=== PATIENT | female | born 1975 | race Caucasian/White ===

== ENCOUNTER → 2018-10-23 06:34 | Outpatient (CLI) | payer OTHER, SELFPAY ==
--- NOTE | 2018-10-23 | DI.CT.S_ITS ---
PROCEDURE: CT SINUS SCREEN WO CON INDICATIONS: CHONIC SINUSITIS TECHNIQUE: Noncontrast 3.0 mm axial images acquired from the frontal sinuses to the mid-sella, with coronal and sagittal reformats. For radiation dose reduction, the following was used: automated exposure control, adjustment of mA and/or kV according to patient size. COMPARISON: None. FINDINGS: Image quality: Excellent. Maxillary Sinuses: No bony remodeling or destruction. Sinuses are clear. Ethmoid Air Cells: No bony remodeling or destruction. Sinuses are clear. Sphenoid Sinuses: No bony remodeling or destruction. Sinuses are clear. Frontal Sinuses: No bony remodeling or destruction. Sinuses are clear. Ostiomeatal Complexes: Ostiomeatal complexes are patent, yet are constitutionally narrowed with infraorbital air cells. Miscellaneous: Visualized intra-orbital contents are normal. There is a mild right sided jeremy bullosa. There is mild leftward nasal septal deviation. IMPRESSION: No significant active paranasal sinus disease is seen. Constitutionally narrowed ostiomeatal complexes. Mild leftward nasal septal deviation. Small right jeremy bullosa. Dictated by: Kris Hook M.D. on 10/23/2018 at 7:13 Approved by: Kris Hook M.D. on 10/23/2018 at 7:18
[2018-10-23 08:03] LABS: Hematocrit 36.3 % (36-46); Hemoglobin 11.8 g/dL (12.0-16.0); Mean Corpuscular HGB Conc 32.6 % (30-36); Mean Corpuscular Hemoglobin 26.1 PG (26-34); Mean Corpuscular Volume 79.9 fL (80-100); Platelet Count 297 X10^3/uL (150-400); Red Blood Cell Count 4.54 X10^6/uL (4.0-5.2); Red Cell Distribution Width 14.8 % (11.6-14.8); White Blood Cell Count 10.8 X10^3/uL (4.5-11.0)
[2018-10-23 08:20] LABS: BUN Creatinine Ratio 13.3 (6-22); Blood Urea Nitrogen 12 mg/dL (7-17); Carbon Dioxide 25 mmol/L (22-32); Chloride 104 mmol/L (98-107); Estimated Glomerular Filt Rate > 60.0 mL/min (>60); Glucose 193 mg/dL (70-100); HEMOLYSIS < 15 (0-50); Potassium 4.6 mmol/L (3.4-5.1); Sodium 139 mmol/L (137-145)
== END ==
PROVIDERS: Orthopaedic Surgery; Family Provider Family Medicine; PCP Family Medicine; Visit Provider Otolaryngology
DX: Z01.818 Encounter for other preprocedural examination (principal); J32.9 Chronic sinusitis, unspecified; J34.2 Deviated nasal septum; J34.3 Hypertrophy of nasal turbinates
CPT/HCPCS: 36415; 70486; 80048; 85027; 93005; 93010

== ENCOUNTER 2018-11-27 07:18 | Day surgery (SDC) | payer OTHER, SELFPAY ==
[2018-10-26 12:46] VITALS: BMI 45.1
[2018-11-27] VITALS (10 sets, daily range): BP systolic 120–168; BP diastolic 63–92; PULSE 74–97; RESP 13–20; TEMP 36.2–36.6; O2SAT 94–98; BMI 45.1
[2018-11-27] MEDS: LACTATED RINGERS 1,000 ML 42 ML IV (09:00)
--- NOTE | 2018-11-27 09:09 | PM.PREOP ---
Pre-operative Note Interval Note History & Physical reviewed/Exam performed by Physician: Yes Changes to H&P: Yes H&P completed within 30 days and has changed as indicated here:: H&P over 30 days old, updated today.
--- NOTE | 2018-11-27 09:10 | PM.HP.1 ---
History of Present Illness Date Patient Seen: 11/27/18 Time Patient Seen: 09:01 Chief complaint: left leg left foot [id number] Narrative: Left ankle preoperative history and physical update. She has recovered from her recent pneumonia. For history and physical regarding surgery, please see note dated 10/20/2018. Patient History Medical History Anxiety (Acute) Bilateral hip pain (Acute) Eczema (Acute) Fatigue (Acute) GERD (gastroesophageal reflux disease) (Acute) Gastroenteritis (Acute) HTN (hypertension) (Acute) Hyperlipidemia (Acute) Insomnia (Acute) Migraines (Acute) Non-functioning kidney (Acute) OCD (obsessive compulsive disorder) (Acute) SHIVNAI on CPAP (Acute) Osteopenia (Acute) Peripheral neuropathy (Acute) Pneumonia (Acute ~10/2018) Recurrent UTI (Acute) Recurrent sinusitis (Acute) Type 2 diabetes mellitus (Acute) Surgical History Hx laparoscopic cholecystectomy (Acute) Hx of fasciotomy (Acute 01/30/18) Hx of reduction mammoplasty (Acute) Family History Father Hypertension Mother Osteoporosis Social History household members: spouse Smoking Status: Never smoker alcohol intake: current Family & Social History Family History Father Hypertension Mother Osteoporosis Social History: household members spouse Tobacco & Substance use: Smoking Status Never smoker alcohol intake current Meds Home Medications Medication Instructions Recorded Confirmed Type sumatriptan succinate [Imitrex] 50 mg PO PRN #6 03/20/12 11/27/18 Rx amitriptyline 100 mg PO HS #90 05/12/12 11/27/18 Rx Lyrica 50 mg PO BID #0 01/27/18 11/27/18 History atorvastatin [Lipitor] 10 mg PO HS #0 01/27/18 11/27/18 History bupropion HCl [Wellbutrin SR] 100 mg PO QDAY #0 01/27/18 11/27/18 History fluticasone 1 spray INTRANASAL BID #0 01/27/18 11/27/18 History levonorgestrel-ethinyl estrad 1 tab PO QDAY #0 01/27/18 11/27/18 History [Lessina] pantoprazole 40 mg PO QDAY #0 01/27/18 11/27/18 History amlodipine 5 mg PO DAILY 11/27/18 11/27/18 History paroxetine HCl 60 mg PO DAILY 11/27/18 11/27/18 History propranolol 80 mg PO DAILY 11/27/18 11/27/18 History Allergies Allergy/AdvReac Type Severity Reaction Status Date / Time Sulfa (Sulfonamide Allergy Intermediate RASH Verified 11/27/18 08:15 Antibiotics) [SULFA (SULFONAMIDE ANTIBIOTICS)] adhesive [ADHESIVE] Allergy Unknown LOCALIZED Verified 11/27/18 08:15 RASH Penicillins [PENICILLINS] Allergy Unknown Verified 11/27/18 08:15 metformin [METFORMIN] AdvReac Unknown DIARRHEA Verified 11/27/18 08:15 Review of Systems Review of Systems All systems reviewed & are unremarkable except as noted in HPI and below Exam Vital Signs (past 8 hours): - 11/27/18 07:53 Temperature 97.1 F L Pulse Rate 75 Respiratory Rate 15 Blood Pressure 121/73 Pulse Oximetry 97 Oxygen Delivery Method Room Air Const General: cooperative Orientation: alert, awake and oriented x3 Resp Effort & Inspection: normal respiratory effort Auscultation: clear to auscultation bilaterally Cardio Rate: regular rate Rhythm: regular rhythm Pulses: posterior tibial pulses present and dorsalis pedis present Neuro Sensory Exam: no sensory deficits noted (to left foot/ankle) Extrem Left lower extremity: normal capillary refill and ankle Details: normal ROM (Dorsiflexion foot on ankle about 12? beyond 90) and achilles tendon exam abnormal (Pain on palpation posterior heel at the insertion point of Achilles) Assessment & Plan Assessment & Plan narrative: I reviewed the risks and complications as well as expected outcomes of the procedure please see further details on surgical history and physical note dated October 20, 2018. We will investigate this intraoperatively to determine the need for a gastrocnemius recession however under exam today it does not appear that she has significant tension here. She will start her Lovenox short course tomorrow and this is reviewed with her and her including safety instructions. She already has medication postoperatively as well at home that she used on her last surgery that she has not yet finished. Nonweightbearing for a minimum of 3 weeks and then gradual transition with strengthening and physical therapy. Consent is signed, no contraindications to the procedure at this time. No guarantees are given or implied.
[2018-11-27] MEDS: CLINDAMYCIN 900 MG/50 ML PIGGYBACK 50 MG IV (09:13)
[2018-11-27] MEDS: BUPIVACAINE 0.5% (PF) VIAL 30 ML INJ (10:05)
--- NOTE | 2018-11-27 12:03 | P.OP_ITS ---
Operative Date/Time/Diagnoses Date of procedure: 11/27/18 Time of procedure: 12:00 Pre-op diagnosis: Left Achilles tendinosis, heel spur, gastrocnemius equinus Post-op diagnosis: same Procedure & Clinicians Procedure: Left retrocalcaneal exostectomy with Achilles tendon debridement and four-point anchoring Left gastrocnemius recession Same procedure as scheduled: Yes Indications: Ongoing painful posterior heel and Achilles area. Conservative measures failed to alleviate her pain and she wished to have surgical intervention at this time. Surgeon: Andreia Donaldson Click Yes if Unassisted: Yes Anesthesia Type: General Operative Notes Closure Type: primary Specimen(s): none sent Prosthetic devices, grafts, tissues, transplants, or devices: Arthrex Speed Bridge Estimated Blood Loss (mL): 30 Blood products transfused: none Tourniquet time (min): 71 Procedure in detail: Patient was brought to the operating room. On the [facility] a general anesthesia was rendered by the anesthesiologist. She was carefully positioned prone on operative table, well padded and appropriately aligned. The foot and ankle were prepped and draped in the usual aseptic manner. The tourniquet was inflated to the thigh. After a check of anesthesia incision was made on the posterior aspect of the left calcaneus at the insertion point of the Achilles to the heel. The incision was deepened through subcutaneous tissues being careful to identify and retract all vital neural and vascular structures. All bleeders were cauterized and ligated as necessary. The capsule surrounding the Achilles tendon was gently opened and reflected and the enlarged insertion point of the Achilles tendon was noted. The insertion was divided centrally and Achilles tendon was reflected laterally and medially. This exposed areas of the tendon that were significa ntly thickened as well as areas that included calcifications within the tendon. These bony prominences within tendon and calcifications were gently removed and some of the thickened scarred areas of the tendon distally were also reduced. A osteotome was used to chamfer away the posterior spurring of the calcaneus. It was noted that there was a natural angle to the posterior heel such that the me dial side was more forward and the lateral side was more posterior. This constant uneven this affect on the back of the heel and so the osteotome was chamfer down to justify this a little bit. This was then gently smoothed with a rasp. The area was irrigated with copious amounts of normal sterile saline. Following the technique of the Arthrex SpeedBridge. Drill holes were placed proximally on the posterior aspect of the calcaneus medially and laterally. This was then tapped and each anchor was inserted. Once appropriately seated the FiberWire attached to the anchor was brought up through the Achilles tendon at the appropriate location. There was a little less Achilles tendon on the lateral aspect so because of that I used a 2nd portion of the attached suture on that side to attach proximal to the anchor. Next, distally on the calcaneus another set of 2 holes were drilled in the same manner and tapped. Following the speed bridge protocol, under appropriate tension threading each of the 2 sides of the more proximal anchors suture, this was then placed in each of the holes. Each of these 2 anchors were then seated appropriately and was under good tension. Excess fiber tape was trimmed. A free needle was used to take some of the included FiberWire suture on each side and reinforce the attachment. Care was taken to not make this a proud knot. 2-0 Vicryl was used to reinforce and repair the remainder of the Achilles tendon and range of motion was available and strong. The area was irrigated once more with normal sterile saline. At this point when I reviewed the tension on the calf it was decided that she still had enough tension that it warranted the gastroc recession. So. Proximally on the calf, a 2nd incision was made centrally. This was deepened through subcutaneous tissues being careful to identify and retract all vital neural and vascular structures. All bleeders were cauterized and ligated as necessary. The paratenon and deep fascia were incised noting the aponeurosis and the soleus musculature underneath. Protecting the the soleal muscle belly, the aponeurosis was cut distally medially and laterally and then proximally in the center with a separate sections by about 3 cm. Dorsiflexion allowed the lengthening and 2 0 Vicryl was used to repair. The area was irrigated with copious amounts of normal sterile saline and the tourniquet was deflated. A prompt hyperemic response was seen to the foot and ankle and calf. Distally, tendon capsule was then repaired and subcutaneous closure was performed with Vicryl. Proximally, the deep fascia was repaired with Vicryl and subcutaneously as well. Skin was closed with nylon and she was placed in a sterile lightly compressive dressing. She was then also placed in her postoperative boot. She was transferred to the PACU with vital signs stable and vascular status intact. Complications: none Condition: stable Disposition: PACU Plan for aftercare: Following a period of postoperative monitoring, the patient be discharged home on written and oral postoperative instructions including keeping the dressing dry and intact, avoiding ambulation on the foot, elevating the foot when seated home. DVT prevention techniques have been reviewed. She will start her short course of Lovenox tomorrow. For the 1st postoperative visit the dressing will be a changed and there can be a check of suture removal along the proximal and distal incisions. More likely, the distal incision will not be able to be removed until the 3rd week postoperatively. At that point we will remove them if they have not been removed already, and because of the addition of the gastroc as well as the reinforcement of the Achilles I will have her begin transition to weight-bearing starting close to the 3-1/2 to 4th postoperative week.
[2018-11-27] MEDS: ONDANSETRON 4 MG/2 ML INJ IV (12:14)
[2018-11-27] MEDS: fentaNYL 100 MCG/2 ML INJ 50 MCG IV (12:15)
--- NOTE | 2018-11-27 12:25 | SUR.PHASEI ---
addendum to admit assessment to PACU, pt. arrived with oral airway and simple mask. placed O2 at 8L via simple mask/oral airway.
--- NOTE | 2018-11-27 12:26 | SUR.OPER ---
Prone on padded OR bed, head in foam head support, gel chest rolls, gel pad under knees, pillow under lower legs, arms secured on padded arm boards at <90 degrees abduction. Safety belt at thigh. non operative leg secured in place with tape, operative leg draped free.
--- NOTE | 2018-11-27 13:01 | SUR.PHASEII ---
report given to Katiana RN to continue care.
--- NOTE | 2018-11-27 16:44 | SUR.PHASEII ---
Late entry: assumed care from Rachele, D/c instructions along with lovenox injection discussed with pt, all voiced an understanding. pt ready to go when done, assisted to dress when ready and left in stable condition, dressing to l lower leg c/d/i with boot. Denied pain in foot, c/o slight headache, but refused meds at this time. Nausea also resolved.
== END 2018-11-27 16:49 | disposition home or self-care (01) ==
PROVIDERS: PCP Family Medicine; Visit Provider Podiatrist
PROC: (CPT 27685; principal; 2018-11-27 09:00)
DX: M76.62 Achilles tendinitis, left leg (principal); M77.32 Calcaneal spur, left foot; E66.9 Obesity, unspecified; I10 Essential (primary) hypertension; F41.9 Anxiety disorder, unspecified; G47.33 Obstructive sleep apnea (adult) (pediatric); E11.9 Type 2 diabetes mellitus without complications
CPT/HCPCS: 27654; 27687; J1100; J1170; J2405; J2704; J3010

== ENCOUNTER → 2019-04-03 09:26 | Outpatient (CLI) | payer OTHER, SELFPAY ==
[2019-04-03 10:59] LABS: BUN Creatinine Ratio 16.3 (6-22); Blood Urea Nitrogen 13 mg/dL (7-17); Estimated Glomerular Filt Rate > 60.0 mL/min (>60)
== END ==
PROVIDERS: PCP Family Medicine; Visit Provider Podiatrist
DX: Z01.818 Encounter for other preprocedural examination (principal)
CPT/HCPCS: 36415; 82565; 84520

== ENCOUNTER → 2019-04-20 06:42 | Outpatient (CLI) | payer OTHER, SELFPAY ==
--- NOTE | 2019-04-20 | DI.MRI.S_ITS ---
PROCEDURE: MR ANKLE LT WO/W CON INDICATIONS: CALCANEAL SPUR OF LEFT FOOT - abcess TECHNIQUE: Noncontrast sagittal T1 spin echo and T2 fast spin echo with fat saturation, axial proton density fast spin echo and T2 fast spin echo with fat saturation, axial T1 spin echo with fat saturation, coronal T1 spin echo and T2 fast spin echo with fat saturation through the ankle/hindfoot. Post-contrast axial, coronal, and sagittal T1 spin echo with fat saturation through the ankle/hindfoot. COMPARISON: [facility] [place], CR, XR CALCANEUS LEFT, 03/30/2019, 7:58. FINDINGS: Image quality: Excellent. Bones and joints: There is suggestion of prior rotator cuff tendon repair with 2 suture anchors seen in posterior calcaneus. Marrow edema involving the posterior calcaneus near Achilles tendon insertion site is seen with mild contrast enhancement. No discrete fracture line is noted. No other area of abnormal marrow signal or suspicious osseous enhancement. No hindfoot coalitions. No osteochondral injuries of the talar dome. No pathologic joint effusions. Medial structures: The posterior tibialis, flexor digitorum longus, and flexor hallucis longus tendons are intact. The posterior tibial neurovascular bundle appears normal within the tarsal tunnel, without extrinsic mass effect. The deep layer (anterior and posterior tibiotalar ligaments) and superficial layer (tibionavicular, tibiospring, and tibiocalcaneal ligaments) of the deltoid ligament appear normal. The spring ligament components (superomedial calcaneonavicular, medioplantar oblique calcaneonavicular, and inferoplantar longitudinal ligaments) are intact. Lateral structures: The anterior talofibular, calcaneofibular, and posterior talofibular ligaments appear intact. More superiorly, the anterior and posterior tibiofibular ligaments appear intact, as is the intermalleolar ligament. The tibiofibular syndesmosis is normal in width at 2 mm or less. The peroneus longus and brevis tendons demonstrate normal location and morphology. Adjacent bony peroneal tubercle and retrotrochlear prominence are normal in size. The sinus tarsi demonstrates normal fatty signal, without edema, fibrosis, or cyst formation. Visualized sinus tarsi components (cervical ligament, interosseous talocalcaneal ligament, roots of the inferior extensor retinaculum) appear normal. The calcaneonavicular and calcaneocuboid components of the bifurcate ligament appear intact. The dorsal calcaneocuboid ligament appears intact. Anterior structures: The tibialis anterior, extensor hallucis longus, and extensor digitorum longus tendons appear intact. The dorsal talonavicular ligament appears intact. Posterior and plantar structures: Thickened distal Achilles tendinitis posterior calcaneal insertion is seen with surrounding soft tissue edema and fluid. No drainable abscess collection. No full-thickness Achilles tendon rupture. Medial and lateral bands of the plantar fascia are of normal thickness. No abductor digiti quinti muscle atrophy to suggest Langley neuropathy. IMPRESSION: 1. Prior Achilles tendon repair with post surgical changes. 2. Finding is suggestive of tendinosis and moderate grade partial-thickness tear involving distal Achilles tendinitis posterior calcaneal insertion. Infected distal Achilles tendon with surrounding cellulitis cannot be excluded. No drainable fluid collection is seen. 3. Edema involving the posterior calcaneus near Achilles tendon insertion site, concerning for osteomyelitis is clinically suspected an infection in left heel. This could also represent postsurgical changes versus bony contusion. No cortical erosion is noted. No fracture or dislocation. 4. Rest of ankle tendons and ligaments are intact. Dictated by: Polo Dudley M.D. on 04/20/2019 at 15:03 Approved by: Polo Dudley M.D. on 04/20/2019 at 15:09
== END ==
PROVIDERS: PCP Family Medicine; Visit Provider Podiatrist
DX: M77.32 Calcaneal spur, left foot (principal); R60.0 Localized edema
CPT/HCPCS: 73723; A9579

== ENCOUNTER → 2019-06-09 15:20 | Oncology outpatient (ONC) | payer OTHER, SELFPAY ==
[2019-05-19 08:41] VITALS: BP 129/78; PULSE 78; RESP 20; TEMP 36.4; O2SAT 97
--- NOTE | 2019-05-19 09:33 | ONC.CONS ---
History of Present Illness - Data of Consult Consult date: 05/19/19 Primary Care Provider: Briana Louie MD - Consult Narrative Narrative: Diagnosis: Leukocytosis History of present illness: Stephanie Castro is a 43 year old female who is referred for further evaluation regarding an elevated white cell count. Patient reports that she was feeling generally well and is part of a routine physical had a blood test done in February. She is noted to have a mildly elevated white count at 12.9. On recheck in March, her white count was 13.8. Differential showed primarily neutrophilia with an absolute neutrophil count of 10.2. She did not have any anemia or thrombocytopenia. Review of old CBCs shows that in October 2017, her white count was 12.6. In December of 2016 it was normal at 6.2 and in August 2016 it was 13.2. The patient reports that she has been feeling generally well. She is not aware of any infection at the time when the blood counts were drawn. She has had a couple of bladder infections however. She denies any fevers chills or night sweats. She has not noticed any adenopathy. No abdominal complaints. She denies any history of splenomegaly. She otherwise feels well and is without any specific complaint. Her past medical history is notable for hypertension and diabetes. She has a history of neuropathy. She was born with just 1 kidney. She has had a prior cholecystectomy. She has had prior foot surgery. She was hospitalized with a pneumonia several years ago. Her family history is negative for any malignancy or blood dyscrasia. Social history: She does not smoke and has rare alcohol use. She works as a real estate paralegal. CC: Brian Pro MD Home Medications and Allergies Home Medications Medication Instructions Recorded Confirmed Type sumatriptan succinate [Imitrex] 50 mg PO PRN #6 03/20/12 05/19/19 Rx amitriptyline 100 mg PO HS #90 05/12/12 05/19/19 Rx Lyrica 50 mg PO BID #0 01/27/18 05/19/19 History atorvastatin [Lipitor] 10 mg PO HS #0 01/27/18 05/19/19 History bupropion HCl [Wellbutrin SR] 100 mg PO QDAY #0 01/27/18 05/19/19 History fluticasone propionate 1 spray INTRANASAL BID #0 01/27/18 05/19/19 History levonorgestrel-ethinyl estrad 1 tab PO QDAY #0 01/27/18 05/19/19 History [Lessina] pantoprazole 40 mg PO QDAY #0 01/27/18 05/19/19 History amlodipine 5 mg PO DAILY 11/27/18 05/19/19 History paroxetine HCl 60 mg PO DAILY 11/27/18 05/19/19 History propranolol 80 mg PO DAILY 11/27/18 05/19/19 History sitagliptin [Januvia] 50 mg DAILY 05/19/19 05/19/19 History Allergies Allergy/AdvReac Type Severity Reaction Status Date / Time Sulfa (Sulfonamide Allergy Intermediate RASH Verified 11/27/18 08:15 Antibiotics) [SULFA (SULFONAMIDE ANTIBIOTICS)] adhesive [ADHESIVE] Allergy Unknown LOCALIZED Verified 11/27/18 08:15 RASH Penicillins [PENICILLINS] Allergy Unknown Verified 11/27/18 08:15 metformin [METFORMIN] AdvReac Unknown DIARRHEA Verified 11/27/18 08:15 Medical History - Medical, Surgical, Family History Medical History: Medical History (Updated 05/19/19 @ 09:22 by Brian Pro MD) Anxiety Bilateral hip pain Eczema Fatigue GERD (gastroesophageal reflux disease) Gastroenteritis HTN (hypertension) Hyperlipidemia Insomnia Migraines Non-functioning kidney OCD (obsessive compulsive disorder) SHIVANI on CPAP Osteopenia Peripheral neuropathy Pneumonia Onset Date: ~10/2018 Recurrent UTI Recurrent sinusitis Type 2 diabetes mellitus Surgical History: Surgical History (Updated 10/26/18 @ 13:05 by Nina Menendez RN) Hx laparoscopic cholecystectomy Hx of fasciotomy Onset Date: 01/30/18 Hx of reduction mammoplasty Family History: Family History (Updated 11/27/18 @ 09:13 by Andreia Donaldson DPM) Father Hypertension Mother Osteoporosis - Social History Smoking Status: Never smoker Review of Systems - Patient Self-Reported Symptoms SR Constitution: Fatigue/Malaise SR Gastrointestinal issues: Heartburn SR Neuro issues: Numbness or tingling Constitutional: able to conduct usual activities Gastrointestinal: no change in appetite, no abdominal pain Hematologic/Lymphatic: anemia, no enlarged lymph nodes Exam Vital signs: Vital Signs Temp Pulse Resp BP Pulse Ox 05/19/19 08:41 97.6 F 78 20 129/78 97 Intake and Output 05/18/19 05/19/19 05/19/19 23:59 07:59 15:59 Other: Weight 134.4 kg Patient Weight 05/19/19 23:59 Weight 134.4 kg - Constitutional positive no acute distress, positive morbidly obese - Routine HEENT Exam Head: Present: normocephalic, atraumatic Eye: Present: EOMI, PERRL. Absent: conjunctival icterus, scleral injection ENT: Present: mucous membranes moist, oropharynx clear - Routine Neck Exam Present: supple. Absent: lymphadenopathy, thyromegaly - Routine Chest/Breast/Axilla Exam Axillae: Absent: lymphadenopathy - Routine Respiratory Exam Present: Clear to auscultation bilaterally. Absent: rales, wheezes - Routine Cardiovascular Exam Present: RRR, S1, S2. Absent: murmur - Routine Abdominal Exam Present: soft, normoactive bowel sounds. Absent: tenderness, organomegaly, mass - Routine Extremities Exam Absent: cyanosis, clubbing, edema - Routine Back/Spine Exam Back/Spine: Absent: paraspinal tenderness, vertebral tenderness - Routine Skin Exam Present: intact. Absent: petechiae, rash - Routine Neurological Exam Present: alert, oriented X3 - Routine Psychiatric Exam Present: normal affect, normal thought process Assessment and Plan (1) Leukocytosis, unspecified Current visit: Yes Status: Acute 43-year-old woman with modest elevation in her white count without any obvious etiology. It seems that has been present for most of the last 3 years. Differential shows primarily neutrophilia. She has had a mild anemia that was likely iron deficiency but is not currently anemic. There has been no history of thrombocytopenia. She is not on any medications likely to raise her white count. She has not had a prior splenectomy. There does not seem to be any obvious underlying infection. I think it is unlikely although possible that this may represent CML. I think it is reasonable to check PCR for bcr/ABL. If that is negative, I am not sure that any further evaluation would be necessary all helpful other than ongoing periodic follow-up. She will return to clinic in about 2 weeks for follow-up.
--- NOTE | 2019-05-24 10:15 | ONC.SCHED ---
Called patient regarding the jose david auth for the specialty lab. Jose David needs more info and it's still pending. I left her a msg.
--- NOTE | 2019-05-26 09:57 | ONC.SCHED ---
Spoke with [employer]ave[employer] again today and they are submitting the form I filled out as urgent for the genetic lab Dr. Pro is requesting. So, still waiting on approval.
[2019-05-29 11:46] LABS: Add Manual Diff / Slide Review NO; Basophils Absolute Auto 100 /uL (0-100); Basophils Percent Auto 0.9 % (0-2); Eosinophils Absolute Auto 300 /uL (0-450); Eosinophils Percent Auto 2.6 % (2-4); Hematocrit 37.4 % (36-46); Hemoglobin 12.3 g/dL (12.0-16.0); Lymphocytes Absolute Auto 2400 /uL (1100-4500); Lymphocytes Percent Auto 18.5 % (25-40); Mean Corpuscular HGB Conc 32.8 % (30-36); Mean Corpuscular Volume 79.3 fL (80-100); Monocytes Absolute Auto 500 /uL (0-900); Monocytes Percent Auto 3.7 % (3-14); Neutrophils Absolute Auto 9600 /uL (1500-7000); Neutrophils Percent Auto 74.3 % (50-75); Platelet Count 283 X10^3/uL (150-400); Red Blood Cell Count 4.71 X10^6/uL (4.0-5.2); Red Cell Distribution Width 15.1 % (11.6-14.8); White Blood Cell Count 12.9 X10^3/uL (4.5-11.0)
[2019-06-09 15:24] VITALS: BP 138/88; PULSE 82; RESP 20; TEMP 36.4; O2SAT 98
--- NOTE | 2019-06-09 16:01 | ONC.PN ---
PN -Subjective Interval history: Diagnosis: Leukocytosis Interval history: The patient is a 43-year-old woman who returns today for follow-up. She has had a longstanding very mild leukocytosis with normal red cell count and platelet count. She has not had any symptoms related to this. She has never required any specific therapy. Since her last visit, she has been feeling about the same. Strength and energy level have been normal. She denies any fevers chills or night sweats. No shortness of breath or cough. No GI complaints. She denies any unusual bleeding or bruising. She denies any other changes in her health. - Patient Self-Reported Symptoms SR Constitution: Fatigue/Malaise SR Gastrointestinal issues: Heartburn SR Neuro issues: Numbness or tingling Home Medications and Allergies Home Medications Medication Instructions Recorded Confirmed Type sumatriptan succinate [Imitrex] 50 mg PO PRN #6 03/20/12 06/09/19 Rx amitriptyline 100 mg PO HS #90 05/12/12 06/09/19 Rx Lyrica 50 mg PO BID #0 01/27/18 06/09/19 History atorvastatin [Lipitor] 10 mg PO HS #0 01/27/18 06/09/19 History bupropion HCl [Wellbutrin SR] 100 mg PO QDAY #0 01/27/18 06/09/19 History fluticasone propionate 1 spray INTRANASAL BID #0 01/27/18 06/09/19 History levonorgestrel-ethinyl estrad 1 tab PO QDAY #0 01/27/18 06/09/19 History [Lessina] pantoprazole 40 mg PO QDAY #0 01/27/18 06/09/19 History amlodipine 5 mg PO DAILY 11/27/18 06/09/19 History paroxetine HCl 60 mg PO DAILY 11/27/18 06/09/19 History propranolol 80 mg PO DAILY 11/27/18 06/09/19 History sitagliptin [Januvia] 50 mg DAILY 05/19/19 06/09/19 History Allergies Allergy/AdvReac Type Severity Reaction Status Date / Time Sulfa (Sulfonamide Allergy Intermediate RASH Verified 11/27/18 08:15 Antibiotics) [SULFA (SULFONAMIDE ANTIBIOTICS)] adhesive [ADHESIVE] Allergy Unknown LOCALIZED Verified 11/27/18 08:15 RASH Penicillins [PENICILLINS] Allergy Unknown Verified 11/27/18 08:15 metformin [METFORMIN] AdvReac Unknown DIARRHEA Verified 11/27/18 08:15 Exam Vital signs: Vital Signs Temp Pulse Resp BP Pulse Ox 06/09/19 15:24 97.6 F 82 20 138/88 98 Intake and Output 06/09/19 06/09/19 06/09/19 07:59 15:59 23:59 Other: Weight 134 kg Patient Weight 06/09/19 23:59 Weight 134 kg - Constitutional positive no acute distress, positive obese - Routine HEENT Exam Head: Present: normocephalic, atraumatic Eye: Present: EOMI, PERRL. Absent: conjunctival icterus, scleral injection ENT: Present: mucous membranes moist, oropharynx clear - Routine Neck Exam Present: supple. Absent: lymphadenopathy, thyromegaly - Routine Respiratory Exam Present: Clear to auscultation bilaterally. Absent: rales, wheezes - Routine Cardiovascular Exam Present: RRR, S1, S2. Absent: murmur - Routine Abdominal Exam Present: soft, normoactive bowel sounds. Absent: tenderness, organomegaly, mass - Routine Extremities Exam Absent: cyanosis, clubbing, edema - Routine Skin Exam Present: intact. Absent: petechiae, rash - Routine Neurological Exam Present: alert, oriented X3 - Routine Psychiatric Exam Present: normal affect, normal thought process Results - Labs Laboratory Last Values WBC 12.9 X10^3/uL (4.5-11.0) H 05/29/19 11:20 RBC 4.71 X10^6/uL (4.0-5.2) 05/29/19 11:20 Hgb 12.3 g/dL (12.0-16.0) 05/29/19 11:20 Hct 37.4 % (36-46) 05/29/19 11:20 MCV 79.3 fL (80-100) L 05/29/19 11:20 MCH 26.0 PG (26-34) 05/29/19 11:20 MCHC 32.8 % (30-36) 05/29/19 11:20 RDW 15.1 % (11.6-14.8) H 05/29/19 11:20 Plt Count 283 X10^3/uL (150-400) 05/29/19 11:20 Neut % (Auto) 74.3 % (50-75) 05/29/19 11:20 Lymph % (Auto) 18.5 % (25-40) L 05/29/19 11:20 [place] % (Auto) 3.7 % (3-14) 05/29/19 11:20 Eos % (Auto) 2.6 % (2-4) 05/29/19 11:20 Baso % (Auto) 0.9 % (0-2) 05/29/19 11:20 Neut # (Auto) 9600 /uL (7442-2160) H 05/29/19 11:20 Lymph # (Auto) 2400 /uL (3271-6530) 05/29/19 11:20 [place] # (Auto) 500 /uL (0-900) 05/29/19 11:20 Eos # (Auto) 300 /uL (0-450) 05/29/19 11:20 Baso # (Auto) 100 /uL (0-100) 05/29/19 11:20 BCR/abl Source Whole blood edta 05/29/19 11:20 BCR/abl Prior Result Not given 05/29/19 11:20 BCR/abl1 to abl1 % 0.000 (0.000) 05/29/19 11:20 BCR/abl1 IS % 0.000 (0.000) 05/29/19 11:20 BCR/abl1 Quant Interp See note 05/29/19 11:20 Assessment and Plan (1) Leukocytosis, unspecified Current visit: Yes Status: Acute 43-year-old woman with modest elevation in her white count without any obvious etiology. She has no detectable bcr/ABL transcripts. This is not CML. She has no obvious other diagnosis. She has no symptoms. Will just continue to follow expectantly. She will return to clinic in about 6 months for follow-up.
== END ==
PROVIDERS: PCP Family Medicine
DX: D72.829 Elevated white blood cell count, unspecified (principal); E11.9 Type 2 diabetes mellitus without complications; I10 Essential (primary) hypertension; Q60.0 Renal agenesis, unilateral; Z90.49 Acquired absence of other specified parts of digestive tract; Z79.84 Long term (current) use of oral hypoglycemic drugs
CPT/HCPCS: 36415; 81207; 85025; 99204; 99213; 99214

== ENCOUNTER → 2019-12-20 06:38 | Outpatient (CLI) | payer OTHER, SELFPAY ==
--- NOTE | 2019-12-20 | DI.MRI.S_ITS ---
PROCEDURE: MR ANKLE LT WO CON INDICATIONS: achilles tendinitis TECHNIQUE: Noncontrast sagittal T1 spin echo and T2 fast spin echo with fat saturation, axial proton density fast spin echo and T2 fast spin echo with fat saturation, coronal T1 spin echo and T2 fast spin echo with fat saturation through the ankle/hindfoot. COMPARISON: [facility], CR, XR CALCANEUS LEFT, 06/01/2019, 7:11. FINDINGS: Image quality: Excellent. Bones and joints: No bone marrow contusions or fractures. There are postsurgical changes demonstrated consistent with prior partial osteotomy of the posterosuperior calcaneus with the attachment of the Achilles tendon. Surgical anchors within the calcaneus are demonstrated. There is regional bone marrow and soft tissue edema within the surgical bed. No hindfoot coalitions. No osteochondral injuries of the talar dome. There is minimal tibiotalar joint fluid. Medial structures: The posterior tibialis, flexor digitorum longus, and flexor hallucis longus tendons are intact. The posterior tibial neurovascular bundle appears normal within the tarsal tunnel, without extrinsic mass effect. The deltoid and spring ligaments appear intact. Lateral structures: The anterior talofibular, calcaneofibular, and posterior talofibular ligaments appear slightly thickened compatible with sequela of mild sprains.. More superiorly, the anterior and posterior tibiofibular ligaments appear slightly thickened and intermediate in signal intensity compatible with sequelae of mild sprains. The tibiofibular syndesmosis appears slightly widened distally measuring 3-4 mm with intermediate signal intensity filling defects suggesting sequelae of a syndesmotic sprain. The peroneus longus and brevis tendons demonstrate normal location and morphology. Adjacent bony peroneal tubercle and retrotrochlear prominence are normal in size. The sinus tarsi demonstrates preserved fatty signal with mild edema and cystic change compatible with sequelae of mild ligament sprains. The calcaneonavicular and calcaneocuboid components of the bifurcate ligament appear intact. The dorsal calcaneocuboid ligament appears intact. Anterior structures: The tibialis anterior, extensor hallucis longus, and extensor digitorum longus tendons appear intact. The dorsal talonavicular ligament appears intact. Posterior and plantar structures: Achilles tendon demonstrates marked thickening distally adjacent to its reimplanted attachment site. The surgical anchors appear grossly intact. There is thickening and intrasubstance edema within the distal Achilles tendon as well as mild peritendinous edema anteriorly. The findings are consistent with tendinopathy, postsurgical changes, and partial tearing. There is thickening of the central cord of plantar fascia with a plantar calcaneal enthesophyte at its origin. No abductor digiti quinti muscle atrophy to suggest Langley neuropathy. IMPRESSION: 1. Post surgical changes demonstrated status post partial osteotomy of the posterior superior labrum and reattachment of the Achilles tendon. The Achilles tendon appears grossly intact with marked tendinopathy distally and moderate intrasubstance partial tearing anteriorly. 2. Bone marrow and soft tissue edema along the surgical bed involving the calcaneus and adjacent soft tissues may represent reactive postsurgical changes, recurrent bursitis, or infection. Recommend correlation clinically. 3. Sequelae of prior mild sprains of the lateral ligaments and distal tibiofibular syndesmosis. Dictated by: Hector Hassan M.D. on 12/20/2019 at 14:31 Approved by: Hector Hassan M.D. on 12/20/2019 at 14:41
== END ==
PROVIDERS: PCP Family Medicine; Referring Provider Podiatrist; Visit Provider Podiatrist
DX: M76.62 Achilles tendinitis, left leg (principal)
CPT/HCPCS: 73721

== ENCOUNTER → 2020-04-25 15:30 | Outpatient (CLI) | payer OTHER, SELFPAY ==
[2020-04-26 08:19] LABS: COVID19 Sendout Not Detected (Not Detect)
== END ==
PROVIDERS: PCP Family Medicine; Visit Provider Physician Assistant
DX: Z11.59 Encounter for screening for other viral diseases (principal)
CPT/HCPCS: 87635

== ENCOUNTER 2020-04-28 05:57 | Day surgery (SDC) | payer OTHER, SELFPAY ==
[2020-04-24 08:12] VITALS: BMI 41.6
[2020-04-28 06:53] VITALS: BP 122/70; PULSE 81; RESP 18; TEMP 36.1; O2SAT 97; BMI 41.1
[2020-04-28] MEDS: LACTATED RINGERS 1,000 ML 100 ML IV (07:18)
--- NOTE | 2020-04-28 07:36 | PM.PREOP ---
Pre-operative Note COVID-19 COVID-19 status: Negative Result date/Date tested (Pos, Neg/Pending): 04/28/20 Interval Note History & Physical reviewed/Exam performed by Physician: Yes Changes to H&P: No
[2020-04-28] MEDS: INSULIN ASPART 100 UNIT/ML 10ML VIAL SUBCUT ×2 (07:39→09:41)
[2020-04-28] MEDS: CLINDAMYCIN 600 MG/50 ML PIGGYBACK 50 MG IV (07:43)
--- NOTE | 2020-04-28 08:27 | SUR.OPER ---
Prone on padded OR bed, head in foam head support, gel chest rolls, gel pad under knees, pillow under lower legs, toes free of pressure, arms secured on padded arm boards at <90 degrees abduction. Safety belt at thigh.
[2020-04-28] MEDS: BUPIVACAINE 0.5% (PF) VIAL 30 ML INJ (08:38)
[2020-04-28 09:37] VITALS: BP 135/85; PULSE 86; RESP 12; TEMP 36.7; O2SAT 95
[2020-04-28 09:38] VITALS: BP 152/92; PULSE 95; RESP 13; O2SAT 98
--- NOTE | 2020-04-28 09:43 | P.OP_ITS ---
Operative Date/Time/Diagnoses Date of procedure: 04/28/20 Time of procedure: 07:43 Pre-op diagnosis: Left Achilles tendinosis, pain, retained anchor system Post-op diagnosis: same Procedure & Clinicians Procedure: Left Achilles tendinosis and scar tissue debridement and repair Same procedure as scheduled: Yes Indications: Painful enlargement of prior repair area of the Achilles tendon. Suspect tendinosis with scarring, possible need for anchor takedown. Surgeon: Andreia Donaldson Click Yes if Unassisted: Yes Anesthesia Type: General Operative Notes Closure Type: primary Specimen(s): none sent Prosthetic devices, grafts, tissues, transplants, or devices: Amnion thin graft by Arthrex, 2-0 Fiberwire, 3-0 Vicryl, 4-0 Vicryl, 3-0 Nylon Estimated Blood Loss (mL): 20 Blood products transfused: none Tourniquet time (min): 49 Procedure in detail: The patient was brought to the operating room. On the rney, general anesthesia was rendered by the anesthesiologist. Next she was carefully positioned prone on operative table, well padded and appropriately aligned. The foot and ankle were prepped and draped in the usual aseptic manner. The tourniquet was inflated to the thigh. After a check of anesthesia incision was made on the posterior aspect of the left calcaneus just proximal to the insertion point of the Achilles to the heel. The incision was deepened through subcutaneous tissues being careful to identify and retract all vital neural and vascular structures. All bleeders were cauterized and ligated as necessary. The paratenon surrounding the Achilles tendon was gently opened and reflected and the significantly enlarged Achilles tendon was noted just proximal to the insertion. This thickened area was divided centrally in a portion and Achilles tendon was shown to have significant hard scarred tissue invested within it. This was not showing any slippage or damage to the anchor system. The exposed areas of the tendon that were significantly thickened showed no calcifications specifically noted, but d id have some areas of prior suture that were able to be removed with some of the scarring. I checked distally along the insertion and the tendon was thinned down where it was quite thick, but always checking thickness to verify there was plenty of tendon available. The area was irrigated with copious amounts of normal sterile saline. 2-0 Fiberwire was used to repair the areas most in need of strength where vertical segments of scar tissue were removed. Care taken to bury the knots to reduce scar potential. Additional reninforcement with 3-0 Vicryl. Strength verified. TQ was let down, a prompt hyperemic response was seen to the foot/ankle. Amnion graft placed on Achilles prior to paratenon closure using appropriate direction from the maker and rep who was present. After paratenon closed with 4-0 Vicryl, extra Amnion graft that was redundant was placed on top of this area prior to subcutaneous closure. Subcutaneous closure was performed with Vicryl. Skin was closed with nylon and she was placed in a sterile lightly compressive dressing. She was then also placed in her postoperative boot. She was transferred to the PACU with vital signs stable and vascular status intact. Complications: none Post-operative Condition: stable Disposition: PACU Plan for aftercare: Following a period of postoperative monitoring, the patient be discharged home on written and oral postoperative instructions including keeping the dressing dry and intact, avoiding significant ambulation on the foot, icing and elevating the foot when seated home. DVT prevention techniques have been reviewed. For the 1st postoperative visit the dressing will be changed and close to the third to fourth postoperative week we will likely remove the sutures. Should be mostly nonweightbearing but if need be, no greater than 25% weight to the foot the first 3 weeks then may allow for 50% as we see healing taking place.
[2020-04-28 09:45] VITALS: BP 128/84; PULSE 101; RESP 14; O2SAT 96
[2020-04-28 09:53] VITALS: BP 128/77; PULSE 95; RESP 13; O2SAT 95
--- NOTE | 2020-04-28 10:56 | SUR.PHASEII ---
Late entry: Blood sugar 169 prior to d/c, s/s of hypoglycemia discussed with pt and . both voiced an understanding. Pt denied pain, d/c instructions discussed again all voiced an understanding. Pt left when ready and left in stable condition. Pt also encouraged to f/u with PCP about blood sugar control.
--- NOTE | 2020-05-01 10:17 | SUR.OPER ---
procedure end times and out of room times added by Dereck Gould RN after verifying times into holding
== END 2020-04-28 10:15 | disposition home or self-care (01) ==
PROVIDERS: PCP Nurse Practitioner Family; Referring Provider Podiatrist; Visit Provider Podiatrist
PROC: (CPT 27650; principal; 2020-04-28 07:45)
DX: M76.62 Achilles tendinitis, left leg (principal); M77.32 Calcaneal spur, left foot; M72.2 Plantar fascial fibromatosis; M21.6X2 Other acquired deformities of left foot; M25.472 Effusion, left ankle; G47.30 Sleep apnea, unspecified; E66.9 Obesity, unspecified; I10 Essential (primary) hypertension; E11.9 Type 2 diabetes mellitus without complications; Z79.84 Long term (current) use of oral hypoglycemic drugs; Z68.41 Body mass index [BMI] 40.0-44.9, adult
CPT/HCPCS: 27654; J1885; J2250; J2405; J2704; J3010

== ENCOUNTER 2020-11-01 08:47 | Emergency (ER) | payer OTHER, SELFPAY ==
[2020-11-01 08:50] VITALS: BP 130/77; PULSE 93; RESP 18; TEMP 36.2; O2SAT 94; BMI 42.5
--- NOTE | 2020-11-01 08:54 | DI.RAD.S_ITS ---
PROCEDURE: XR CHEST 1V INDICATIONS: shortness of breath TECHNIQUE: One view of the chest was acquired. COMPARISON: None. FINDINGS: Surgical changes and devices: None. Lungs and pleura: Patchy bilateral atelectasis versus consolidation. No pleural effusions or pneumothorax. Mediastinum: Mediastinal contours appear normal. Heart size is normal. Bones and chest wall: No suspicious bony lesions. Overlying soft tissues appear unremarkable. IMPRESSION: Patchy bilateral atelectasis versus consolidation. Cannot exclude viral pneumonia. Dictated by: Marlon Carrasco M.D. on 11/01/2020 at 9:43 Approved by: Marlon Carrasco M.D. on 11/01/2020 at 9:43
--- NOTE | 2020-11-01 08:58 | ED_ITS ---
HPI - General Adult General Chief complaint: Upper Respiratory Symptoms Stated complaint: sinus headache/sob/dizzy x5 days Time Seen by Provider: 11/01/20 08:52 Source: patient Mode of arrival: Ambulatory Limitations: no limitations History of Present Illness HPI narrative: Patient is a 45-year-old female. History of diabetes, OCD. Migraines and hypertension here for evaluation of 1 week of fatigue and a ?sinus headache? that she states is different than her migraines. She denies any cough. Denies any chest pain although today she started to upper abdominal pain with taking deep breath. No known exposures. No fevers. No change in bowel habits. She has had her gallbladder removed. Has not tried anything for symptoms prior to arrival Related Data Home Medications Medication Instructions Recorded Confirmed atorvastatin [Lipitor] 10 mg PO HS #0 01/27/18 04/28/20 bupropion HCl [Wellbutrin SR] 100 mg PO QDAY #0 01/27/18 04/28/20 fluticasone propionate 1 spray INTRANASAL BID #0 01/27/18 04/28/20 levonorgestrel-ethinyl estrad 1 tab PO QDAY #0 01/27/18 04/28/20 [Lessina] pantoprazole 40 mg PO QDAY #0 01/27/18 04/28/20 pregabalin [Lyrica] 50 mg PO BID #0 01/27/18 04/28/20 amlodipine 5 mg PO DAILY 11/27/18 04/28/20 paroxetine HCl 60 mg PO DAILY 11/27/18 04/28/20 propranolol 80 mg PO DAILY 11/27/18 04/28/20 Januvia 50 mg DAILY 05/19/19 04/28/20 sumatriptan succinate [Imitrex] 50 mg PO PRN 04/28/20 04/28/20 Previous Rx's Medication Instructions Recorded amitriptyline 100 mg PO HS #90 05/12/12 Allergies Allergy/AdvReac Type Severity Reaction Status Date / Time Sulfa (Sulfonamide Allergy Intermediate RASH Verified 04/28/20 06:50 Antibiotics) [SULFA (SULFONAMIDE ANTIBIOTICS)] adhesive [ADHESIVE] Allergy Unknown LOCALIZED Verified 04/28/20 06:50 RASH Penicillins [PENICILLINS] Allergy Unknown Verified 04/28/20 06:50 metformin [METFORMIN] AdvReac Unknown DIARRHEA Verified 04/28/20 06:50 Review of Systems Constitutional Constitutional: Reports body ache(s), Reports chills, Reports fatigue and Denies fever(s) Cardiovascular Cardiovascular: Reports chest pain (Epigastric), Denies rapid heart rate, Denies irregular heart rhythm and Denies palpitations Respiratory Respiratory: Denies cough and Reports pain on inspiration Gastrointestinal Gastrointestinal: Reports abdominal pain (Epigastric), Denies change in bowel habits, Reports nausea and Denies vomiting Genitourinary Genitourinary: Denies dysuria Genitourinary: Denies dysuria Musculoskeletal Musculoskeletal: Denies arthralgias and Denies myalgias Integumentary/Breasts Skin/Breast: Denies rash Neurologic Neurologic: Denies behavioral changes Psychiatric Psychiatric: Denies behavioral changes Endocrine Endocrine: Reports fatigue and Denies palpitations Hematologic/Lymphatic Hematologic/Lymphatic: Denies easy bleeding and Denies easy bruising Allergic/Immunologic Allergic/Immunologic: Denies urticaria Patient History Medical History Anxiety Bilateral hip pain Eczema Fatigue Gastroenteritis GERD (gastroesophageal reflux disease) HTN (hypertension) Hyperlipidemia Insomnia Migraines Neuropathy OCD (obsessive compulsive disorder) SHIVANI on CPAP Osteopenia Peripheral neuropathy Pneumonia (~10/2018) Recurrent sinusitis Recurrent UTI Type 2 diabetes mellitus Unilateral congenital absence of kidney Surgical History (Updated 04/24/20 @ 09:28 by Nina Menendez RN) History of esophagogastroduodenoscopy (EGD) Hx laparoscopic cholecystectomy Hx of fasciotomy (01/30/18) Hx of reduction mammoplasty Family History (Updated 11/27/18 @ 09:13 by Andreia Donaldson DPM) Father Hypertension Mother Osteoporosis Social History household members: spouse Smoking Status: Never smoker alcohol intake: current Smoking Status: Never smoker alcohol intake frequency: holidays/special occasions only Substance Use Type: does not use Exam Initial Vital Signs Initial Vital Signs: Vital Signs Temperature 97.1 F L 11/01/20 08:50 Pulse Rate 93 H 11/01/20 08:50 Respiratory Rate 18 11/01/20 08:50 Blood Pressure 130/77 11/01/20 08:50 Pulse Oximetry 94 11/01/20 08:50 Const General: cooperative, healthy appearing and comfortable Limitations: mental status not altered HENMT Head: normal to inspection and normocephalic Resp Effort & Inspection: normal respiratory effort Auscultation: clear to auscultation bilaterally Cardio Rate: regular rate Rhythm: regular rhythm GI Inspection: non-distended Palpation: soft and No tender Skin Lesions: no lesions Rashes: no rashes Neuro General: patient alert and patient awake Cognition: normal cognition Speech: speech normal Extrem General: capillary refill normal Psych Appearance: grossly normal and well kempt Scores GCS [place] coma scale eye opening: Spontaneous [place] coma scale verbal response: Orientated [place] coma scale motor response: Obey commands [place] coma scale total score: 15 Course Orders Ordered: ED Orders 11/01/20 08:53 COVID19 Stat Complete Blood Count AUTO DIFF Stat Comprehensive Metabolic Panel Stat 11/01/20 08:54 XR chest 1V Stat Lipase Stat Troponin & CK Cardiac Panel Stat EKG-12 Lead Stat Vital Signs Vital signs: Vital Signs - 8 hr 11/01/20 08:50 Temperature 97.1 F L Pulse Rate 93 H Respiratory Rate 18 Blood Pressure 130/77 Pulse Oximetry 94 Medical Decision Making Lab Data Result diagrams: 11/01/20 09:25 11/01/20 09:25 Labs: Lab Results 11/01/20 11/01/20 11/01/20 Range/Units 08:52 09:25 09:25 WBC 5.3 (4.5-11.0) X10^3/uL RBC 5.20 (4.0-5.2) X10^6/uL Hgb 13.4 (12.0-16.0) g/dL Hct 41.5 (36-46) % MCV 79.9 L (80-100) fL MCH 25.8 L (26-34) PG MCHC 32.3 (30-36) % RDW 13.8 (11.6-14.8) % Plt Count 224 (150-400) X10^3/uL Neut % (Auto) 70.5 (50-75) % Lymph % (Auto) 21.5 L (25-40) % [place] % (Auto) 7.3 (3-14) % Eos % (Auto) 0.4 L (2-4) % Baso % (Auto) 0.3 (0-2) % Neut # (Auto) 3700 (5203-7033) /uL Lymph # (Auto) 1100 (7696-3368) /uL [place] # (Auto) 400 (0-900) /uL Eos # (Auto) 0 (0-450) /uL Baso # (Auto) 0 (0-100) /uL Sodium 130 L (137-145) mmol/L Potassium 4.0 (3.4-5.1) mmol/L Chloride 98 (98-107) mmol/L Carbon Dioxide 25 (22-32) mmol/L BUN 11 (7-17) mg/dL Creatinine 0.58 (0.52-1.04) mg/dL Estimated GFR > 60.0 (>60) mL/min BUN/Creatinine Ratio 19.0 (6-22) Glucose 233 H (70-100) mg/dL Calcium 8.3 L (8.4-10.2) mg/dL Total Bilirubin 0.5 (0.2-1.3) mg/dL AST 41 H (14-36) IU/L ALT 28 (<35) IU/L Alkaline Phosphatase 233 H (38-126) U/L Total Creatine Kinase (30-135) U/L CK-MB (CK-2) CK-MB (CK-2) Rel Index Troponin I (0.01-0.034) ng/mL Total Protein 6.6 (6.3-8.2) g/dL Albumin 3.6 (3.5-5.0) g/dL Globulin 3.0 (1.7-4.1) g/dL Albumin/Globulin Ratio 1.2 (1.0-2.8) Lipase (23-300) U/L SARS-CoV-2 (PCR) Positive H (Negative) 11/01/20 Range/Units 09:25 WBC (4.5-11.0) X10^3/uL RBC (4.0-5.2) X10^6/uL Hgb (12.0-16.0) g/dL Hct (36-46) % MCV (80-100) fL MCH (26-34) PG MCHC (30-36) % RDW (11.6-14.8) % Plt Count (150-400) X10^3/uL Neut % (Auto) (50-75) % Lymph % (Auto) (25-40) % [place] % (Auto) (3-14) % Eos % (Auto) (2-4) % Baso % (Auto) (0-2) % Neut # (Auto) (6554-3584) /uL Lymph # (Auto) (9873-1036) /uL [place] # (Auto) (0-900) /uL Eos # (Auto) (0-450) /uL Baso # (Auto) (0-100) /uL Sodium (137-145) mmol/L Potassium (3.4-5.1) mmol/L Chloride (98-107) mmol/L Carbon Dioxide (22-32) mmol/L BUN (7-17) mg/dL Creatinine (0.52-1.04) mg/dL Estimated GFR (>60) mL/min BUN/Creatinine Ratio (6-22) Glucose (70-100) mg/dL Calcium (8.4-10.2) mg/dL Total Bilirubin (0.2-1.3) mg/dL AST (14-36) IU/L ALT (<35) IU/L Alkaline Phosphatase (38-126) U/L Total Creatine Kinase 21 L (30-135) U/L CK-MB (CK-2) TNP CK-MB (CK-2) Rel Index TNP Troponin I < 0.012 (0.01-0.034) ng/mL Total Protein (6.3-8.2) g/dL Albumin (3.5-5.0) g/dL Globulin (1.7-4.1) g/dL Albumin/Globulin Ratio (1.0-2.8) Lipase 32 (23-300) U/L SARS-CoV-2 (PCR) (Negative) Imaging Data Chest x-ray: Radiologist's Impression: [address] [id number] ReportSigned Patient: Stephanie Castro JMR#: [id number]: [id number]:[id number]/Sex: 45 / FDate of Service: 11/01/20Loc: EDAccession Number: [id number] Procedure: XR chest 1V Ordering Provider: Ethan Sam D.O. PROCEDURE: XR CHEST 1V INDICATIONS: shortness of breath TECHNIQUE: One view of the chest was acquired. COMPARISON: None. FINDINGS: Surgical changes and devices: None. Lungs and pleura: Patchy bilateral atelectasis versus consolidation. No pleural effusions or pneumothorax. Mediastinum: Mediastinal contours appear normal. Heart size is normal. Bones and chest wall: No suspicious bony lesions. Overlying soft tissues appear unremarkable. IMPRESSION: Patchy bilateral atelectasis versus consolidation. Cannot exclude viral pneumonia. Dictated by: Marlon Carrasco M.D. on 11/01/2020 at 9:43 Approved by: Marlon Carrasco M.D. on 11/01/2020 at 9:43 ECG Data Attestation: I personally reviewed and interpreted this ECG as follows: Prior ECG tracings: not available for review Interpretation: Sinus rhythm Ventricular rate 87 Normal QRS Normal QTC Nonspecific ST T wave changes MDM Narrative Medical decision making narrative: Patient has a JUAN MIGUEL score of 24.87. This makes her low risk for progression to intubation. Patient's presenting symptoms today are consistent with COVID. No indication for antibiotics. We did discuss the use of aspirin. Discussed use of Tylenol. She does have a pulse oximeter at home which she could use to monitor herself. She was given strict return precautions. She was given guidelines on quarantine herself. She expressed understanding agreement. Discharge Plan Departure Patient Disposition: Home Clinical Impression: COVID-19 Instructions: Coronavirus Disease 2019 Activity Restrictions/Additional Instructions: Your testing today was positive for COVID-19. Current CDC guidelines state that you need to quarantine herself for the next 10 days and until you are symptom- free for 24 hours. I do recommend that you do your best to stay away from your is he is at risk for developing COVID-19. Continues to use your pulse oximeter at home and if your breathing worsens or your oxygen saturations are consistently below 90 please return to the emergency department. Contact your primary provider for follow-up. Continue the rest your medications. You can take Tylenol for any headaches or body aches. Also recommend that you start taking a daily aspirin until your symptoms are resolved. Prescriptions: No Action amitriptyline 100 MG tablet 100 mg PO HS Qty: 90 RF: 3 atorvastatin [Lipitor] 10 MG tablet 10 mg PO HS Qty: 0 RF: 0 fluticasone propionate 16 GM spray,suspension 1 spray Intranasal BID Qty: 0 RF: 0 pregabalin [Lyrica] 50 MG capsule 50 mg PO BID Qty: 0 RF: 0 levonorgestrel-ethinyl estrad [Lessina] 1 EACH tablet 1 tab PO QDAY Qty: 0 RF: 0 pantoprazole 40 MG tablet,delayed release (DR/EC) 40 mg PO QDAY Qty: 0 RF: 0 bupropion HCl [Wellbutrin SR] 100 MG tablet extended release 12 hr 100 mg PO QDAY Qty: 0 RF: 0 sumatriptan succinate [Imitrex] 50 MG tablet 50 mg PO PRN RF: 0 propranolol 80 mg Tablet 80 mg PO DAILY RF: 0 paroxetine HCl 30 mg Tablet 60 mg PO DAILY RF: 0 amlodipine 5 mg Tablet 5 mg PO DAILY RF: 0 Januvia 50 mg Tablet 50 mg DAILY RF: 0 Referrals: Joi Lucas ARNP [Primary Care Provider] -
[2020-11-01 09:11] LABS: COVID19 -Nasal RAPID POSITIVE (Negative)
[2020-11-01 09:35] LABS: Add Manual Diff / Slide Review NO; Basophils Absolute Auto 0 /uL (0-100); Basophils Percent Auto 0.3 % (0-2); Eosinophils Absolute Auto 0 /uL (0-450); Eosinophils Percent Auto 0.4 % (2-4); Hematocrit 41.5 % (36-46); Hemoglobin 13.4 g/dL (12.0-16.0); Lymphocytes Absolute Auto 1100 /uL (1100-4500); Lymphocytes Percent Auto 21.5 % (25-40); Mean Corpuscular HGB Conc 32.3 % (30-36); Mean Corpuscular Hemoglobin 25.8 PG (26-34); Mean Corpuscular Volume 79.9 fL (80-100); Monocytes Absolute Auto 400 /uL (0-900); Monocytes Percent Auto 7.3 % (3-14); Neutrophils Absolute Auto 3700 /uL (1500-7000); Neutrophils Percent Auto 70.5 % (50-75); Platelet Count 224 X10^3/uL (150-400); Red Cell Distribution Width 13.8 % (11.6-14.8); White Blood Cell Count 5.3 X10^3/uL (4.5-11.0)
[2020-11-01 09:47] LABS: Creatine Kinase 21 U/L (30-135); Lipase 32 U/L (23-300)
[2020-11-01 09:48] LABS: Alanine Aminotransferase 28 IU/L (<35); Albumin 3.6 g/dL (3.5-5.0); Albumin Globulin Ratio 1.2 (1.0-2.8); Alkaline Phosphatase 233 U/L (38-126); Aspartate Aminotransferase 41 IU/L (14-36); Bilirubin Total 0.5 mg/dL (0.2-1.3); Blood Urea Nitrogen 11 mg/dL (7-17); Calcium 8.3 mg/dL (8.4-10.2); Carbon Dioxide 25 mmol/L (22-32); Chloride 98 mmol/L (98-107); Estimated Glomerular Filt Rate > 60.0 mL/min (>60); Glucose 233 mg/dL (70-100); HEMOLYSIS < 15 (0-50); Sodium 130 mmol/L (137-145); Total Protein 6.6 g/dL (6.3-8.2)
[2020-11-01 10:00] LABS: Troponin I < 0.012 ng/mL (0.01-0.034)
[2020-11-01 10:54] VITALS: BP 116/56; PULSE 90; RESP 16; O2SAT 94
== END 2020-11-01 10:55 | disposition home or self-care (01) ==
PROVIDERS: Emergency Provider Emergency Medicine; PCP Nurse Practitioner Family
DX: U07.1 COVID-19 (principal); R06.02 Shortness of breath; R51.9 Headache, unspecified; I10 Essential (primary) hypertension; E11.9 Type 2 diabetes mellitus without complications; R10.10 Upper abdominal pain, unspecified; R07.9 Chest pain, unspecified; R11.0 Nausea; E78.5 Hyperlipidemia, unspecified
CPT/HCPCS: 36415; 71045; 80053; 82550; 83690; 84484; 85025; 87635; 93005; 93010; 99283; 99284; C9803

== ENCOUNTER → 2021-06-22 08:55 | Outpatient (CLI) | payer OTHER, SELFPAY ==
[2021-06-22 10:47] LABS: Add Manual Diff / Slide Review NO; Basophils Absolute Auto 0 /uL (0-100); Basophils Percent Auto 0.3 % (0-2); Eosinophils Absolute Auto 500 /uL (0-450); Eosinophils Percent Auto 3.9 % (2-4); Hematocrit 41.3 % (36-46); Hemoglobin 13.4 g/dL (12.0-16.0); Lymphocytes Absolute Auto 2600 /uL (1100-4500); Lymphocytes Percent Auto 20.8 % (25-40); Mean Corpuscular HGB Conc 32.4 % (30-36); Mean Corpuscular Hemoglobin 26.6 PG (26-34); Mean Corpuscular Volume 82.3 fL (80-100); Monocytes Absolute Auto 600 /uL (0-900); Monocytes Percent Auto 4.8 % (3-14); Neutrophils Absolute Auto 8700 /uL (1500-7000); Neutrophils Percent Auto 70.2 % (50-75); Platelet Count 299 X10^3/uL (150-400); Red Blood Cell Count 5.02 X10^6/uL (4.0-5.2); Red Cell Distribution Width 13.7 % (11.6-14.8); White Blood Cell Count 12.4 X10^3/uL (4.5-11.0)
[2021-06-22 10:53] LABS: Hemoglobin A1C% w Est Avg Glu 9.5 % (4.0-6.0)
[2021-06-22 11:09] LABS: Alanine Aminotransferase 24 IU/L (<35); Albumin 4.3 g/dL (3.5-5.0); Albumin Globulin Ratio 1.5 (1.0-2.8); Alkaline Phosphatase 108 U/L (38-126); Aspartate Aminotransferase 43 IU/L (14-36); BUN Creatinine Ratio 22.2 (6-22); Bilirubin Total 0.7 mg/dL (0.2-1.3); Blood Urea Nitrogen 14 mg/dL (7-17); Calcium 9.8 mg/dL (8.4-10.2); Carbon Dioxide 23 mmol/L (22-32); Chloride 102 mmol/L (98-107); Cholesterol 182 mg/dL (140-199); Estimated Glomerular Filt Rate > 60.0 mL/min (>60); Globulin 2.8 g/dL (1.7-4.1); Glucose 223 mg/dL (70-100); HDL Cholesterol 46 mg/dL (40-60); HEMOLYSIS < 15 (0-50); Potassium 4.9 mmol/L (3.4-5.1); Sodium 136 mmol/L (137-145); Total Protein 7.1 g/dL (6.3-8.2); Triglycerides 410 mg/dL (35-150)
[2021-06-22 15:55] LABS: Creatinine Urine Random 191.8 mg/dL; Microalbumi Creatinin Ratio Ur 68.8 ug/mg CR (<30); Microalbumin Urine Random 13.2 mg/dL (0-1.6)
== END ==
PROVIDERS: PCP Registered Nurse; Referring Provider Registered Nurse; Visit Provider Registered Nurse
DX: D64.9 Anemia, unspecified (principal); I10 Essential (primary) hypertension; E11.9 Type 2 diabetes mellitus without complications; Z82.49 Family history of ischemic heart disease and other diseases of the circulatory system
CPT/HCPCS: 36415; 80053; 80061; 82043; 82570; 83036; 85025

== ENCOUNTER → 2021-07-10 12:22 | Outpatient (CLI) | payer OTHER, SELFPAY ==
--- NOTE | 2021-07-10 | DI.MRI.S_ITS ---
PROCEDURE: MR ANKLE LT WO CON INDICATIONS: Achilles tendinitis, left leg TECHNIQUE: Noncontrast sagittal T1 spin echo and T2 fast spin echo with fat saturation, axial proton density fast spin echo and T2 fast spin echo with fat saturation, coronal T1 spin echo and T2 fast spin echo with fat saturation through the ankle/hindfoot. COMPARISON: [facility], MR, MR ANKLE LT WO CON, 12/20/2019, 7:15. FINDINGS: Image quality: Excellent. Bones and joints: Postsurgical changes are noted in posterior calcaneus from prior Achilles tendon repair. Well-defined plantar and dorsal calcaneal enthesophytes are seen. No gross marrow edema. No acute fracture or dislocation. No hindfoot coalitions. No osteochondral injuries of the talar dome. No pathologic joint effusions. Medial structures: The posterior tibialis, flexor digitorum longus, and flexor hallucis longus tendons are intact. The posterior tibial neurovascular bundle appears normal within the tarsal tunnel, without extrinsic mass effect. The deep layer (anterior and posterior tibiotalar ligaments) and superficial layer (tibionavicular, tibiospring, and tibiocalcaneal ligaments) of the deltoid ligament appear normal. The spring ligament components (superomedial calcaneonavicular, medioplantar oblique calcaneonavicular, and inferoplantar longitudinal ligaments) are intact. Lateral structures: The anterior talofibular, calcaneofibular, and posterior talofibular ligaments appear intact. More superiorly, the anterior and posterior tibiofibular ligaments appear intact, as is the intermalleolar ligament. The tibiofibular syndesmosis is normal in width at 2 mm or less. The peroneus longus and brevis tendons demonstrate normal location and morphology. Adjacent bony peroneal tubercle and retrotrochlear prominence are normal in size. The sinus tarsi demonstrates normal fatty signal, without edema, fibrosis, or cyst formation. Visualized sinus tarsi components (cervical ligament, interosseous talocalcaneal ligament, roots of the inferior extensor retinaculum) appear normal. The calcaneonavicular and calcaneocuboid components of the bifurcate ligament appear intact. The dorsal calcaneocuboid ligament appears intact. Anterior structures: The tibialis anterior, extensor hallucis longus, and extensor digitorum longus tendons appear intact. The dorsal talonavicular ligament appears intact. Posterior and plantar structures: Markedly thickened distal Achilles tendon at its posterior calcaneal insertion is seen with intrasubstance T2 hyper plantar calcaneus with overlying soft tissue edema and fluid suggestive of te plantar fasciitis. No abductor digiti quinti muscle atrophy to suggest [place]y neuropathy. IMPRESSION: 1. Prior Achilles tendon repair with postsurgical changes. No gross marrow edema. No acute fracture or dislocation. No osteochondral injury of talar dome. 2. Suggestion of chronic tendinosis and low-grade intrasubstance partial-thickness tear involving distal Achilles tendon at its posterior calcaneal insertion. No full-thickness Achilles tendon rupture. 3. Suggestion of mild to moderate plantar fasciitis as above. 4. Rest of the ankle tendons and ligaments are intact. Dictated by: Polo Dudley M.D. on 07/10/2021 at 13:45 Approved by: Polo Dudley M.D. on 07/10/2021 at 13:47
== END ==
PROVIDERS: PCP Registered Nurse; Referring Provider Podiatrist; Visit Provider Podiatrist
DX: M76.62 Achilles tendinitis, left leg (principal)
CPT/HCPCS: 73721

== ENCOUNTER → 2021-10-31 09:53 | Outpatient (CLI) | payer OTHER, SELFPAY ==
[2021-10-31 11:29] LABS: COVID19 -Nasal RAPID Negative (Negative)
== END ==
PROVIDERS: PCP Registered Nurse; Referring Provider Family Medicine Sleep Medicine; Visit Provider Family Medicine Sleep Medicine
DX: Z20.822 Contact with and (suspected) exposure to COVID-19 (principal)
CPT/HCPCS: 87635; C9803

== ENCOUNTER → 2021-12-12 13:00 | Outpatient (CLI) | payer OTHER, SELFPAY ==
[2021-12-12 14:55] LABS: COVID19 -Nasal RAPID Negative (Negative)
== END ==
PROVIDERS: PCP Registered Nurse; Visit Provider Family Medicine Sleep Medicine
DX: Z20.822 Contact with and (suspected) exposure to COVID-19 (principal)
CPT/HCPCS: 87635; C9803

== ENCOUNTER 2021-12-14 06:31 | Day surgery (SDC) | payer OTHER, SELFPAY ==
[2021-12-10 07:57] VITALS: BMI 36.5
[2021-12-14] VITALS (8 sets, daily range): BP systolic 140–171; BP diastolic 84–117; PULSE 94–114; RESP 10–20; TEMP 36.6–36.8; O2SAT 92–97; BMI 38.0
--- NOTE | 2021-12-14 07:40 | PM.PREOP ---
Pre-operative Note COVID-19 COVID-19 status: Negative Result date/Date tested (Pos, Neg/Pending): 12/12/21 Interval Note History & Physical reviewed/Exam performed by Physician: Yes Changes to H&P: No
--- NOTE | 2021-12-14 07:41 | P.OP_ITS ---
Operative Date/Time/Diagnoses Date of procedure: 12/14/21 Time of procedure: 07:41 Pre-op diagnosis: Left Achilles tendinosis pain Post-op diagnosis: same Procedure & Clinicians Procedure: Left Achilles tendinosis and scar tissue debridement Same procedure as scheduled: Yes Indications: 46 yo DM female with ongoing swelling to the area just above the anchoring of the Achilles tendon at the calcaneus as well as soreness at the Achilles as it enters the heel area and stretching up the calf from time to time. Conservative measures have failed to control the swelling and alleviate the soreness and she wished to have surgical intervention at this time. We reviewed the locations of swelling and soreness once again in the preoperative holding area. She understands that this procedure is not likely to take away the soreness coming up the Achilles and calf, and she has greater than 10 degrees of motion at the ankle of dorsiflexion, so no additional lengthening would be warranted at this time. She voiced understanding and wishes to proceed with the proposed surgery, in an attempt to reduce some of the ongoing swelling in the region and also some of the local soreness. No guarantees are given or implied. Surgeon: Andreia Donaldson Click Yes if Unassisted: Yes Anesthesia Type: General Operative Notes Closure Type: primary Specimen(s): none sent Estimated Blood Loss (mL): 20 Tourniquet time (min): 27 Procedure in detail: The patient was brought to the operating room. On the gurney, general an esthesia was rendered by the anesthesiologist. Next the tourniquet was applied to the thigh, left, and she was carefully positioned prone onto the operative table, well padded and appropriately aligned. The left foot and ankle were prepped and draped in the usual aseptic manner. The tourniquet was inflated to the thigh. After a check of anesthesia, an incision was made on the posterior aspect of the left calcaneus at the insertion point of the Achilles to the heel and going proximally along the Achilles tendon itself. The prior incision was followed at the level of the calcaneus. The incision was deepened through subcutaneous tissues being careful to identify and retract all vital neural and vascular structures. All bleeders were cauterized and ligated as necessary. There was a fair amount of scar tissue present in this area. The thickened encapsulating scar tissue surrounding the Achilles tendon distally was gently opened and reflected and the enlarged portion of the Achilles tendon was noted. There was some scar tissue at the insertion point but her area of soreness was just proximal to this. This portion of the Achilles did not show any tears but did have some scarring present. Once the section of Achilles tendon was demarcated from the scarring I was able to determine how much of the thickened scarred tendon I could take down. This was very carefully reduced sharply and the use of curette was helpful to mobilize some of the tendon tissue. This was then the point where I was able to see the healthy linear striations of the tendon. There was still quite a bit of tendon present to allow for safety of function. I checked behind the Achilles tendon and distal at the insertion to determine if there was any bony prominences that needed reducing especially using the x-ray as a map. I did not feel or encounter bony prominences that were in the area needing reducing. Distally 1 of the prominences appeared to be a knot from a nonabsorbable suture from the prior anchor and with the Achilles firmly in place since this particular suture was able to be easily removed without harm for the structure and function of the insertion. This was able to then show some debulking in that location. The area was irrigated with copious amounts of normal sterile saline. Care was taken to put the foot and ankle through a dorsiflexion plantar flexion range of motion and this showed good range of motion with flexibility as well as strength of the Achilles tendon. 3-0 Vicryl was used to reinforce and repair the remaining paratenon with the use of some of the thicker scar tissue to cover the exposed Achilles tendon. 4-0 Vicryl was then used for the subcutaneous tissues and at this time the tourniquet was deflated. A prompt hyperemic response was seen to the foot and ankle. Skin was closed with nylon and she was placed in a sterile lightly compressive dressing. She was then also placed in her postoperative boot. She was transferred to the PACU with vital signs stable and vascular status intact. Complications: none Post-operative Condition: stable Disposition: PACU Plan for aftercare: Following a period of postoperative monitoring, the patient will be discharged to home on written and oral postoperative instructions including keeping the dressing dry and intact, and elevating the foot when seated home. No weight on the operative foot except some touchdown for stability periodically. DVT prevention techniques have been reviewed. For the 1st postoperative visit the dressing will be changed and close to the 3rd-4th postoperative week we will likely remove the sutures.
--- NOTE | 2021-12-14 07:43 | SUR.PREOP ---
12/14/[id number]-Oqeolewric here, Dr Erickson, and notified of Blood Sugar of 315 this am.
[2021-12-14] MEDS: LACTATED RINGERS 1,000 ML 100 ML IV (07:45)
[2021-12-14] MEDS: CLINDAMYCIN 600 MG/50 ML PIGGYBACK 50 MG IV (08:15)
[2021-12-14] MEDS: BUPIVACAINE 0.5% (PF) VIAL 30 ML INJ (08:34)
[2021-12-14] MEDS: INSULIN REGULAR 100 UNIT/ML 3 ML VIAL 10 UNIT SUBCUT (09:33)
== END 2021-12-14 10:18 | disposition home or self-care (01) ==
PROVIDERS: PCP Registered Nurse; Referring Provider Family Medicine; Visit Provider Podiatrist
PROC: (CPT 27650; principal; 2021-12-14 07:45)
DX: M76.62 Achilles tendinitis, left leg (principal); M72.2 Plantar fascial fibromatosis; M25.472 Effusion, left ankle; E11.9 Type 2 diabetes mellitus without complications; I10 Essential (primary) hypertension; E78.5 Hyperlipidemia, unspecified; G47.33 Obstructive sleep apnea (adult) (pediatric); Z79.84 Long term (current) use of oral hypoglycemic drugs
CPT/HCPCS: 27654; 81025; 82962; J2405; J2704; J3010

== ENCOUNTER → 2022-01-23 09:34 | Outpatient (CLI) | payer OTHER, SELFPAY ==
[2022-01-23 10:50] LABS: COVID19 -Nasal RAPID Negative (Negative)
== END ==
PROVIDERS: PCP Registered Nurse; Visit Provider Family Medicine Sleep Medicine
DX: Z20.822 Contact with and (suspected) exposure to COVID-19 (principal)
CPT/HCPCS: 87635; C9803

== ENCOUNTER 2022-01-25 06:04 | Day surgery (SDC) | payer OTHER, SELFPAY ==
[2022-01-24 08:29] VITALS: BMI 36.5
[2022-01-25] VITALS (9 sets, daily range): BP systolic 118–152; BP diastolic 67–79; PULSE 65–88; RESP 12–20; TEMP 36.1–36.8; O2SAT 93–123; BMI 36.5
[2022-01-25] MEDS: LACTATED RINGERS 1,000 ML 42 ML IV (07:26)
--- NOTE | 2022-01-25 07:40 | PM.PREOP ---
Pre-operative Note COVID-19 COVID-19 status: Negative Result date/Date tested (Pos, Neg/Pending): 01/23/22 Interval Note History & Physical reviewed/Exam performed by Physician: Yes Changes to H&P: No
[2022-01-25] MEDS: INSULIN LISPRO 100 UNIT/ML 3ML VIAL 6 UNIT SUBCUT (07:41)
--- NOTE | 2022-01-25 07:42 | PM.OP.1 ---
Operative Date/Time/Diagnoses Date of procedure: 01/25/22 Time of procedure: 07:42 Pre-op diagnosis: Left Achilles wound dehiscence, possible granuloma Post-op diagnosis: other (Left Achilles wound dehiscence with granuloma) Procedure & Clinicians Procedure: Left Achilles wound tissue exploration and debridement/excision of tissues Same procedure as scheduled: Yes Indications: During her recovery from her recent Achilles surgery, an area of the incision has not yet healed, showing granulomatous tissue and some dehiscence. Conservative measures has not yet healed the area and we decided upon surgical intervention at this time. She has an increased level of her blood glucose this morning, but due to the nature of the diagnosis and concern for possible infection, the decision was made to proceed with surgery today and blood glucose management reviewed with anesthesia and with patient. Surgeon: Andreia Donaldson Click Yes if Unassisted: Yes Anesthesia Type: General Operative Notes Closure Type: primary Specimen(s): other (Deep culture swab taken from posterior calf proximal incision wound Left Achilles tissue.) Estimated Blood Loss (mL): 10 Blood products transfused: none Tourniquet time (min): 0 Procedure in detail: Patient was brought to the operating room. After a time-out was performed, the anesthesiologist performed general anesthesia induction well patient was on the gurney. Next, she was Carefully positioned prone on operative table, well padded and appropriately aligned. The foot and ankle were prepped and draped in the usual aseptic manner. The tourniquet was placed on the thigh but not inflated. After a check of anesthesia, an incision was made on the posterior aspect of the left proximal Achilles where the incisional wound and granulation tissue was noted. The incision was full thickness and upon hitting the subcutaneous tissues there was a discharge of purulence of about 1cc. No malodor. The granuloma centrally was excised and gently, the subcutaneous tissues were reflected with care to identify and retract all vital neural and vascular structures. All bleeders were cauterized and ligated as necessary. There was thick tissue with firmness in the immediate underlying subcutaneous tissues. An undissolved vicryl suture was removed. The area proximal and distal appeared healed and there was no plane of purulence or undermining. The Achilles tendon was gently evaluated and was clean, clear of necrosis or granulation tissue and did not appear affected. No crepitus to the tissues. After sharp reduction of the tissues that were thick on either side of the opened area and excision of the granulation tissue, the area was irrigated with copious amounts of normal sterile saline. Changing our gloves and instrumentation, the area was reviewed once again and ankle dorsiflexed and plantarflexed. There was no discharge and tissues were clean and without discharge. 4-0 Vicryl was used to reinforce and repair a portion of the paratenon over the Achilles tendon just lateral with 2 simple sutures. Otherwise, the skin was closed with nylon and she was placed in a sterile lightly compressive dressing. She was transferred to the PACU with vital signs stable and vascular status intact. Post-operative Condition: stable Disposition: PACU Plan for aftercare: Following a period of postoperative monitoring, the patient will be discharged to home on written and oral postoperative instructions including keeping the dressing dry and intact, avoiding significant ambulation on the foot, and elevating the foot when seated home. DVT prevention techniques have been reviewed. She is going to wear her boot and it was going to be brought to the PACU area by her to put on prior to her leaving. For the 1st postoperative visit the dressing will be changed and close to the 3rd postoperative week we will likely remove the sutures. She is instructed to restart her antibiotics by mouth, as prescribed, tomorrow.
[2022-01-25] MEDS: CLINDAMYCIN 600 MG/50 ML PIGGYBACK 50 MG IV (07:55)
[2022-01-25] MEDS: BUPIVACAINE 0.25% (PF) VIAL 30 ML INJ (08:44)
--- NOTE | 2022-01-25 09:49 | SUR.PHASEI ---
915a-Dr Higuera aware BS 241 postop . no treatment. states it is coming down from 6 units in OR.
--- NOTE | 2022-01-25 10:06 | SUR.OPER ---
Prone on padded OR bed, head in foam head support, gel chest rolls, gel pad under knees, pillow under lower legs, toes free of pressure, arms secured on padded arm boards at <90 degrees abduction. Safety belt at torso. Left leg draped into field, Right leg secured with tape.
== END 2022-01-25 10:09 | disposition home or self-care (01) ==
PROVIDERS: PCP Registered Nurse; Referring Provider Podiatrist; Visit Provider Podiatrist
PROC: (CPT 13160; principal; 2022-01-25 07:45)
DX: T81.31XA Disruption of external operation (surgical) wound, not elsewhere classified, initial encounter (principal); B95.1 Streptococcus, group B, as the cause of diseases classified elsewhere; L92.8 Other granulomatous disorders of the skin and subcutaneous tissue; G47.33 Obstructive sleep apnea (adult) (pediatric); I10 Essential (primary) hypertension; K21.9 Gastro-esophageal reflux disease without esophagitis; E11.9 Type 2 diabetes mellitus without complications; Z79.84 Long term (current) use of oral hypoglycemic drugs; E66.9 Obesity, unspecified; Z68.38 Body mass index [BMI] 38.0-38.9, adult
CPT/HCPCS: 13160; 82962; 87070; 87075; 87077; 87147; 87205; J0330; J1100; J1815; J2405; J2704; J3010

== ENCOUNTER → 2022-11-12 10:07 | Outpatient (CLI) | payer OTHER, SELFPAY ==
[2022-11-12 10:44] LABS: Appearance Urine UA CLOUDY; Bilirubin Urine UA NEGATIVE (NEGATIVE); Color Urine UA YELLOW; Glucose Urine UA 3+ g/dL (Negative); Ketones Urine UA TRACE (NEGATIVE); Leukocyte Esterase Urine UA 1+ (NEGATIVE); Nitrite Urine UA NEGATIVE (Negative); Occult Blood Urine UA 1+ (Negative); Protein Urine UA TRACE (Negative); Specific Gravity Urine UA 1.015 (1.000-1.035); Urobilinogen Urine UA 0.2 E.U./dL (0.2)
[2022-11-12 10:50] LABS: pH Urine UA 5.5 (4.5-8.0)
[2022-11-12 10:52] LABS: Amorphous Sediment Urine 1+; Bacteria Urine Many (>30); Culture Indicated Urine Specimen Cultured; RBC Urine 1-5/HPF (0-5/HPF); Squamous Epithelial Cell Urine >30 /HPF (0-5/HPF); WBC Urine >100/HPF (0-5/HPF)
[2022-11-12 11:00] LABS: Hemoglobin A1C% w Est Avg Glu 13.8 % (4.0-6.0)
[2022-11-12 11:01] LABS: Alanine Aminotransferase 19 IU/L (<35); Albumin 4.3 g/dL (3.5-5.0); Albumin Globulin Ratio 1.2 (1.0-2.8); Alkaline Phosphatase 128 U/L (38-126); Aspartate Aminotransferase 22 IU/L (14-36); BUN Creatinine Ratio 20.4 (6-22); Bilirubin Total 0.8 mg/dL (0.2-1.3); Blood Urea Nitrogen 10 mg/dL (7-17); Calcium 9.1 mg/dL (8.4-10.2); Carbon Dioxide 20 mmol/L (22-32); Chloride 100 mmol/L (98-107); Cholesterol 226 mg/dL (140-199); Creatinine Urine Random 64.2 mg/dL; Estimated Glomerular Filt Rate > 60 mL/min (>60); Globulin 3.5 g/dL (1.7-4.1); Glucose 348 mg/dL (70-100); HDL Cholesterol 42 mg/dL (40-60); HEMOLYSIS 38 (0-50); Potassium 4.6 mmol/L (3.4-5.1); Sodium 133 mmol/L (137-145); Total Protein 7.8 g/dL (6.3-8.2)
[2022-11-12 11:06] LABS: Microalbumi Creatinin Ratio Ur 193.1 ug/mg CR (<30); Microalbumin Urine Random 12.4 mg/dL (0-1.6)
[2022-11-12 11:09] LABS: Triglycerides 635 mg/dL (35-150)
[2022-11-12 11:32] LABS: TSH w/ Reflex to FT4 1.87 uIU/mL (0.47-4.68)
== END ==
PROVIDERS: PCP Family Medicine; Referring Provider Nurse Practitioner Family; Visit Provider Nurse Practitioner Family
DX: R31.9 Hematuria, unspecified (principal); D64.9 Anemia, unspecified; E11.42 Type 2 diabetes mellitus with diabetic polyneuropathy; E11.9 Type 2 diabetes mellitus without complications; I10 Essential (primary) hypertension
CPT/HCPCS: 36415; 80053; 80061; 81001; 82043; 82570; 83036; 84443; 87086

== ENCOUNTER → 2022-11-22 09:24 | Outpatient (CLI) | payer OTHER, SELFPAY ==
[2022-11-22 10:23] LABS: Appearance Urine UA CLEAR; Bilirubin Urine UA NEGATIVE (NEGATIVE); Color Urine UA YELLOW; Glucose Urine UA 3+ g/dL (Negative); Ketones Urine UA NEGATIVE (NEGATIVE); Leukocyte Esterase Urine UA NEGATIVE (NEGATIVE); Nitrite Urine UA NEGATIVE (Negative); Occult Blood Urine UA 2+ (Negative); Protein Urine UA NEGATIVE (Negative); Urobilinogen Urine UA 0.2 E.U./dL (0.2); pH Urine UA 5.5 (4.5-8.0)
[2022-11-22 10:29] LABS: Bacteria Urine None Seen; RBC Urine 5-10/HPF (0-5/HPF); Squamous Epithelial Cell Urine 1-5 /HPF (0-5/HPF); WBC Urine None Seen (0-5/HPF)
[2022-11-22 10:30] LABS: Culture Indicated Urine Cult Not Indicated
== END ==
PROVIDERS: PCP Family Medicine; Referring Provider Nurse Practitioner Family; Visit Provider Nurse Practitioner Family
DX: R30.0 Dysuria (principal)
CPT/HCPCS: 81001

== ENCOUNTER → 2022-11-29 15:24 | Outpatient (CLI) | payer OTHER, SELFPAY ==
--- NOTE | 2022-11-29 15:25 | DI.US.S_ITS ---
PROCEDURE: US PELVIC COMPLETE INDICATIONS: DYSMENORRHEA, PROGRESSIVE BLEEDING WITH PAIN TECHNIQUE: Real-time scanning was performed of the pelvic organs, with image documentation. Additional endovaginal scanning was necessary due to incomplete visualization of the adnexal and endometrial structures by transabdominal scanning. COMPARISON: None. FINDINGS: Uterus: Uterus is anteverted and normal in size at 5.8 x 2.9 x 1.8 cm. The myometrium is homogeneous. The endometrium measures 3 mm combined thickness. No fibroids seen. Trace fluid at the cervix. Ovaries: The right ovary measures 4.3 x 3.2 x 2.8 cm, with a calculated ovarian volume of 20 cc. The left ovary measures 1.5 x 1.4 x 1.1 cm, with a calculated ovarian volume of 1 cc. The ovaries have a normal sonographic appearance. Less than 12 follicles can be seen in each ovary. No adnexal masses are seen. Other: No pathologic free abdominal or pelvic fluid. IMPRESSION: 1. No endometrial thickening. 2. No fibroids. We strive to produce accurate, complete, and clear reports of imaging services. To assist us in improving patient care, this report was composed using standard report templates and voice recognition software. Therefore, it may contain abnormal punctuation, insertions and/or omissions. Occasional wrong-word or sound-alike substitutions may occur. Though we review the report and make efforts to correct it, we do recommend that the report be read carefully in proper context to recognize any text inaccuracies. Dictated by: Eduardo Nunn M.D. on 11/29/2022 at 16:45 Approved by: Eduardo Nunn M.D. on 11/29/2022 at 16:48
== END ==
PROVIDERS: PCP Family Medicine; Referring Provider Family Medicine; Visit Provider Family Medicine
DX: N94.6 Dysmenorrhea, unspecified (principal)
CPT/HCPCS: 76830; 76856

== ENCOUNTER → 2023-01-13 11:13 | Outpatient (CLI) | payer OTHER, SELFPAY | PROVIDERS: PCP Family Medicine; Visit Provider Physician Assistant | DX: N39.0 Urinary tract infection, site not specified (principal) | CPT/HCPCS: 87077; 87086; 87147 ==

== ENCOUNTER 2023-05-14 08:49 | Emergency (ER) | payer OTHER, SELFPAY ==
[2023-05-14 08:53] VITALS: BP 129/60; PULSE 90; RESP 18; TEMP 36.3; O2SAT 99; BMI 36.5
--- NOTE | 2023-05-14 09:38 | ED_ITS ---
HPI - Skin/Abscess/Foreign Bdy General Chief complaint: Urogenital-Female Stated complaint: large infection in izzy area Time Seen by Provider: 05/14/23 09:31 Source: patient Mode of arrival: Ambulatory Limitations: no limitations History of Present Illness HPI narrative: Patient is sent here from her dermatology office for evaluation of right gluteal redness and swelling. Patient has history of diabetes. Has never had infection like this before. Patient has not been on any antibiotics. Has had chills but no fever. No vomiting. Female nurse, Mary, at bedside to costumed character entertainer Related Data Previous Rx's Medication Instructions Recorded amitriptyline 100 mg tablet See Rx Instructions .Route 06/13/22 .COMPLEX #90 tabs atorvastatin 10 mg tablet See Rx Instructions .Route 06/13/22 .COMPLEX #90 tabs bupropion HCl 100 mg tablet,12 hr See Rx Instructions .Route 06/13/22 sustained-release .COMPLEX #90 tabs pantoprazole 40 mg tablet,delayed See Rx Instructions .Route 06/13/22 release .COMPLEX #90 tabs sumatriptan succinate 100 mg tablet See Rx Instructions PO .COMPLEX 06/13/22 #60 tabs insulin aspart U-100 100 unit/mL 5 unit (0.05 mL) SUBCUT QACDINNER 11/27/22 (3 mL) subcutaneous pen (Novolog #15 mL FlexPen U-100 Insulin aspart) insulin glargine 100 unit/mL (3 10 unit (0.1 mL) SUBCUT QPM #15 mL 11/27/22 mL) subcutaneous pen (Lantus Solostar U-100 Insulin) paroxetine HCl 30 mg tablet See Rx Instructions .Route 02/11/23 .COMPLEX #180 tabs levonorgestrel-ethinyl estradiol See Rx Instructions .Route 04/24/23 0.1 mg-20 mcg tablet (Falmina (28)) .COMPLEX #84 tabs doxycycline monohydrate 100 mg 100 mg PO BID #20 caps 05/14/23 capsule ibuprofen 800 mg tablet 800 mg PO Q8H PRN pain #20 tabs 05/14/23 cephalexin 500 mg capsule 500 mg PO TID #30 caps 05/18/23 oxycodone 5 mg tablet 5 mg PO Q3H PRN Pain, Moderate 05/18/23 (4-6) #10 tabs paroxetine HCl 20 mg tablet 60 mg PO DAILY #90 tabs 05/18/23 propranolol 80 mg tablet 80 mg PO DAILY #90 tabs 05/26/23 pregabalin 50 mg capsule (Lyrica) See Rx Instructions PO .COMPLEX 06/06/23 #150 caps amlodipine 5 mg tablet 5 mg PO DAILY #90 tabs 06/09/23 Allergies Allergy/AdvReac Type Severity Reaction Status Date / Time Sulfa (Sulfonamide Allergy Intermediate RASH Verified 06/04/23 13:42 Antibiotics) [SULFA (SULFONAMIDE ANTIBIOTICS)] adhesive [ADHESIVE] Allergy Unknown LOCALIZED Verified 06/04/23 13:42 RASH Penicillins [PENICILLINS] Allergy Unknown Verified 06/04/23 13:42 metformin [METFORMIN] AdvReac Unknown DIARRHEA Verified 06/04/23 13:42 Review of Systems Review of Systems Narrative: GENERAL: Positive chills, fatigue, malaise, negative fever, sweats. HEENT: negative sinus pain, ear pain, sore throat RESPIRATORY: negative dyspnea, cough CARDIOVASCULAR: negative chest pain, palpitations GASTROINTESTINAL: negative nausea, vomiting, abdominal pain : negative dysuria, frequency, hematuria MUSCULOSKELETAL: negative muscle or bony pain SKIN: negative rash, positive skin lesion NEUROLOGIC: negative weakness, numbness ROS Unobtainable: All systems reviewed & are unremarkable except as noted in HPI and below Patient History Medical History Anxiety Bilateral hip pain COVID-19 virus infection (11/01/20) Dysmenorrhea Eczema Fatigue Gastroenteritis GERD (gastroesophageal reflux disease) HTN (hypertension) Hyperlipidemia Hyperlipidemia Insomnia Migraines Neuropathy OCD (obsessive compulsive disorder) Onychomycosis SHIVANI on CPAP Osteopenia Peripheral neuropathy Pneumonia (~10/2018) Recurrent sinusitis Recurrent UTI Type 2 diabetes mellitus Type 2 diabetes mellitus Unilateral congenital absence of kidney Surgical History History of esophagogastroduodenoscopy (EGD) History of orthopedic surgery (12/14/21) History of surgery (04/28/20) History of surgery (11/27/18) Hx laparoscopic cholecystectomy Hx of fasciotomy (01/30/18) Hx of reduction mammoplasty Family History Father Hypertension Mother Osteoporosis Social History household members: spouse Smoking Status: Never smoker alcohol intake: current Smoking Status: Never smoker alcohol intake frequency: holidays/special occasions only Substance Use Type: does not use Exam Narrative Exam Narrative: GENERAL: in no distress, not toxic not dyspneic HEAD: Normocephalic. EYES: Pupils equal round EXTREMITIES: No gross deformities. BACK: No flank tenderness. : There is an area on the right gluteus, 10 cm in diameter. No central or fluctuant areas palpable. Induration does not involve the vagina/labia. Does not involve the rectum/anus. It is tender to touch and indurated. Again, no fluctuant area to incise and drain NEURO: AOx4. SKIN: Warm and dry PSYCH: Not anxious, is cooperative Initial Vital Signs Initial Vital Signs: Vital Signs Temperature 97.3 F L 05/14/23 08:53 Pulse Rate 90 05/14/23 08:53 Respiratory Rate 18 05/14/23 08:53 Blood Pressure 129/60 05/14/23 08:53 Pulse Oximetry 99 05/14/23 08:53 Oxygen Delivery Method Room Air 05/14/23 08:53 Course Orders Ordered: Discontinued Medications Doxycycline Hyclate (Doxycycline Hyclate 100 Mg Tablet) 100 mg PO NOW ONE Stop: 05/14/23 09:38 Last Admin: 05/14/23 09:48 Dose: 100 mg Documented By: PATRICK Ibuprofen (Ibuprofen 400 Mg Tablet) 800 mg PO NOW ONE Stop: 05/14/23 09:38 Last Admin: 05/14/23 09:48 Dose: 800 mg Documented By: AMV Vital Signs Vital signs: Vital Signs - 8 hr 05/14/23 08:53 Temperature 97.3 F L Pulse Rate 90 Respiratory Rate 18 Blood Pressure 129/60 Pulse Oximetry 99 Oxygen Delivery Method Room Air MDM - Skin/Abscess/Foreign Bdy MDM Narrative Medical decision making narrative: Patient is sent here from her dermatology office for evaluation of right gluteal redness and swelling. Patient has history of diabetes. Has never had infection like this before. Patient has not been on any antibiotics. Has had chills but no fever. No vomiting. Female nurse, Mary, at bedside to costumed character entertainer After history and exam no blood work indicated at this time. However doxycycline and ibuprofen is ordered. Abscess is not amenable at this time to drainage MDM CC: Gluteal pain Complicating co-morbidities: Diabetes Data collected from: Patient Medical records reviewed: No recent visit for this complaint Differential considered: Includes but not limited to cellulitis abscess pilonidal cyst Exam documented above, pertinent findings include: Tender indurated right glu teus Lab Test results independently reviewed as above. Pertinent findings: None indicated at this time Imaging studies independently reviewed: None indicated at this time Treatments: Doxycycline ibuprofen Re-evaluations: Reviewed exam findings with patient. Agrees with treatment plan. No blood work indicated or imaging. At this time she understands she may need incision drainage if this does not improve but on exam no areas of fluctuance to drain. Return precautions reviewed. Not toxic at discharge. She desires discharge home Discussion: Appropriate for discharge home. Abscess was not amenable at this time for drainage, no fluctuance. She does understand this may change and require in the future. Antibiotics have been started. Pain is controlled. Nontoxic. Return precautions reviewed. She desires discharge home. Diagnosis: Gluteal abscess Discharge Plan Departure Patient Disposition: Home Clinical Impression: Abscess, gluteal, right Instructions: DI for Skin Abscess Activity Restrictions/Additional Instructions: Please see family doctor in a week for re-evaluation skin infection. You may use cool compresses or warm compresses 20 minutes at a time as needed for pain and swelling. Prescription antibiotics have been sent to your [facility] pharmacy in [place] to picking machine operator helper today and to continue 10 day course. At this time no incision/drainage of the wound to be done however if symptoms worsen and changes occur on the skin, it may be ready at that time to drain. Return if worse if any questions or concerns Prescriptions: New ibuprofen 800 mg tablet 800 mg PO Q8H PRN (Reason: pain) Qty: 20 0RF doxycycline monohydrate 100 mg capsule 100 mg PO BID Qty: 20 0RF No Action paroxetine HCl 30 mg tablet See Rx Instructions .ROUTE .COMPLEX Qty: 180 3RF Dose Instruction: TAKE TWO TABLETS BY MOUTH ONCE DAILY Rx Instructions: TAKE TWO TABLETS BY MOUTH ONCE DAILY levonorgestrel-ethinyl estrad [Falmina (28)] 0.1-20 mg-mcg tablet See Rx Instructions .ROUTE .COMPLEX Qty: 84 3RF Dose Instruction: TAKE ONE TABLET BY MOUTH ONE TIME DAILY Rx Instructions: TAKE ONE TABLET BY MOUTH ONE TIME DAILY propranolol 80 mg tablet 80 mg PO DAILY Qty: 90 3RF pregabalin [Lyrica] 50 mg capsule See Rx Instructions PO .COMPLEX Qty: 150 1RF Rx Instructions: Take 2 capsules in the morning and 3 capsules at night amlodipine 5 mg tablet 5 mg PO DAILY Qty: 90 0RF Rx Instructions: bridge to July appt amitriptyline 100 mg tablet See Rx Instructions .ROUTE .COMPLEX Qty: 90 3RF Dose Instruction: TAKE ONE TABLET BY MOUTH NIGHTLY AT BEDTIME Rx Instructions: TAKE ONE TABLET BY MOUTH NIGHTLY AT BEDTIME atorvastatin 10 mg tablet See Rx Instructions .ROUTE .COMPLEX Qty: 90 3RF Dose Instruction: TAKE ONE TABLET BY MOUTH NIGHTLY AT BEDTIME Rx Instructions: TAKE ONE TABLET BY MOUTH NIGHTLY AT BEDTIME bupropion HCl 100 mg tablet sustained-release 12 hr See Rx Instructions .ROUTE .COMPLEX Qty: 90 3RF Dose Instruction: TAKE ONE TABLET BY MOUTH ONE TIME DAILY Rx Instructions: TAKE ONE TABLET BY MOUTH ONE TIME DAILY pantoprazole 40 mg tablet,delayed release (DR/EC) See Rx Instructions .ROUTE .COMPLEX Qty: 90 3RF Dose Instruction: TAKE ONE TABLET BY MOUTH ONE TIME DAILY Rx Instructions: TAKE ONE TABLET BY MOUTH ONE TIME DAILY sumatriptan succinate 100 mg tablet See Rx Instructions PO .COMPLEX Qty: 60 0RF Rx Instructions: take 1 tab at onset of headache; if no relief, may repeat 1 tab after at least 2 hrs; max = 2 tabs/24 hrs PO insulin glargine [Lantus Solostar U-100 Insulin] 100 unit/mL (3 mL) insulin pen 10 unit SUBCUT QPM Qty: 15 2RF Patient Comments: Hasn't taken for a couple weeks Rx Instructions: 10 units before bedtime insulin aspart U-100 [Novolog FlexPen U-100 Insulin] 100 unit/mL (3 mL) i nsulin pen 5 unit SUBCUT QACDINNER Qty: 15 2RF Patient Comments: Hasn't taken for a couple weeks Rx Instructions: Start ONE WEEK after Lantus pen. 5 units before dinner, once daily paroxetine HCl 20 mg Tablet 60 mg PO DAILY Qty: 90 0RF oxycodone 5 mg Tablet 5 mg PO Q3H PRN (Reason: Pain, Moderate (4-6)) Qty: 10 0RF cephalexin 500 mg capsule 500 mg PO TID Qty: 30 0RF Referrals: Brayan Vila DO [Primary Care Provider] - Stand Alone Forms: Patient Portal/API
[2023-05-14] MEDS: IBUPROFEN 400 MG TABLET 800 MG PO (09:48)
[2023-05-14] MEDS: DOXYCYCLINE HYCLATE 100 MG TABLET PO (09:48)
== END 2023-05-14 09:50 | disposition home or self-care (01) ==
PROVIDERS: Emergency Provider Emergency Medicine; PCP Family Medicine
DX: L02.31 Cutaneous abscess of buttock (principal)
CPT/HCPCS: 99283

== ENCOUNTER 2023-05-15 18:39 | Inpatient (IN) | payer OTHER, SELFPAY ==
[2023-05-15 19:01] VITALS: BP 117/92; PULSE 111; RESP 16; TEMP 36.4; O2SAT 97; BMI 36.5
--- NOTE | 2023-05-15 21:39 | ED.SKABFB ---
HPI - Skin/Abscess/Foreign Bdy General Chief complaint: Skin/Abscess/Foreign Body Stated complaint: Abscess Time Seen by Provider: 05/15/23 23:25 Source: patient Mode of arrival: Ambulatory Limitations: no limitations History of Present Illness HPI narrative: Patient is a 47-year-old female history of diabetes hypertension hyperlipidemia presenting today with abscess on right groin area. sHe reports it has been there for at least 1 week. The last couple of days it has gotten significantly worse and more painful. She was evaluated here 2 days ago after being seen by dermatology who sent to the ED for evaluation. She was placed on doxycycline she has has not helped. She is now having increasing pain. She reports that the pain is quite intense now. She is had some body aches she really has not felt well. She does not check her glucose regularly she is not supposed to she is not sure what it is. She that denies any nausea or vomiting. She was started on doxycycline but feels like it has grown and intensified. Related Data Home Medications Medication Instructions Recorded Confirmed clindamycin HCl 150 mg capsule mg PO PRN 10/24/22 10/24/22 Previous Rx's Medication Instructions Recorded amitriptyline 100 mg tablet See Rx Instructions .Route 06/13/22 .COMPLEX #90 tabs amlodipine 5 mg tablet 5 mg PO DAILY #90 tabs 06/13/22 atorvastatin 10 mg tablet See Rx Instructions .Route 06/13/22 .COMPLEX #90 tabs bupropion HCl 100 mg tablet,12 hr See Rx Instructions .Route 06/13/22 sustained-release .COMPLEX #90 tabs dulaglutide 0.75 mg/0.5 mL 1.5 mg SUBCUT QWEEK #2 mL 06/13/22 subcutaneous pen injector (Trulicity) pantoprazole 40 mg tablet,delayed See Rx Instructions .Route 06/13/22 release .COMPLEX #90 tabs propranolol 80 mg tablet 80 mg PO DAILY #90 tabs 06/13/22 sitagliptin phosphate 50 mg tablet 50 mg PO DAILY #90 tabs 06/13/22 (Januvia) sumatriptan succinate 100 mg tablet See Rx Instructions PO .COMPLEX 06/13/22 #60 tabs insulin aspart U-100 100 unit/mL 5 unit (0.05 mL) SUBCUT QACDINNER 11/27/22 (3 mL) subcutaneous pen (Novolog #15 mL FlexPen U-100 Insulin aspart) insulin glargine 100 unit/mL (3 10 unit (0.1 mL) SUBCUT QPM #15 mL 11/27/22 mL) subcutaneous pen (Lantus Solostar U-100 Insulin) pen needle, diabetic 31 gauge x #100 ea 12/03/22 1/ (Pen Needle) paroxetine HCl 30 mg tablet See Rx Instructions .Route 02/11/23 .COMPLEX #180 tabs pregabalin 50 mg capsule (Lyrica) See Rx Instructions PO .COMPLEX 03/21/23 #150 caps levonorgestrel-ethinyl estradiol See Rx Instructions .Route 04/24/23 0.1 mg-20 mcg tablet (Falmina (28)) .COMPLEX #84 tabs doxycycline monohydrate 100 mg 100 mg PO BID #20 caps 05/14/23 capsule ibuprofen 800 mg tablet 800 mg PO Q8H PRN pain #20 tabs 05/14/23 Allergies Allergy/AdvReac Type Severity Reaction Status Date / Time Sulfa (Sulfonamide Allergy Intermediate RASH Verified 05/14/23 08:53 Antibiotics) [SULFA (SULFONAMIDE ANTIBIOTICS)] adhesive [ADHESIVE] Allergy Unknown LOCALIZED Verified 05/14/23 08:53 RASH Penicillins [PENICILLINS] Allergy Unknown Verified 05/14/23 08:53 metformin [METFORMIN] AdvReac Unknown DIARRHEA Verified 05/14/23 08:53 Review of Systems Review of Systems ROS Unobtainable: All systems reviewed & are unremarkable except as noted in HPI and below Patient History Medical History Anxiety Bilateral hip pain COVID-19 virus infection (11/01/20) Dysmenorrhea Eczema Fatigue Gastroenteritis GERD (gastroesophageal reflux disease) HTN (hypertension) Hyperlipidemia Hyperlipidemia Insomnia Migraines Neuropathy OCD (obsessive compulsive disorder) Onychomycosis SHIVANI on CPAP Osteopenia Peripheral neuropathy Pneumonia (~10/2018) Recurrent sinusitis Recurrent UTI Type 2 diabetes mellitus Type 2 diabetes mellitus Unilateral congenital absence of kidney Surgical History History of esophagogastroduodenoscopy (EGD) History of orthopedic surgery (12/14/21) History of surgery (04/28/20) History of surgery (11/27/18) Hx laparoscopic cholecystectomy Hx of fasciotomy (01/30/18) Hx of reduction mammoplasty Family History Father Hypertension Mother Osteoporosis Social History household members: spouse Smoking Status: Never smoker alcohol intake: current Smoking Status: Never smoker alcohol intake frequency: holidays/special occasions only Substance Use Type: does not use Exam Initial Vital Signs Initial Vital Signs: Vital Signs Temperature 97.6 F 05/15/23 19:01 Pulse Rate 111 H 05/15/23 19:01 Respiratory Rate 16 05/15/23 19:01 Blood Pressure 117/92 H 05/15/23 19:01 Pulse Oximetry 97 05/15/23 19:01 Oxygen Delivery Method Room Air 05/15/23 19:01 GENERAL: Well-appearing, well-nourished and in no acute distress. CARDIOVASCULAR: peripheral pulses in tact, cap refill <2 sec RESPIRATORY: No respiratory distress, speaks in full sentences without difficulty [ABDOMEN: Soft, nontender, no guarding or rebound] EXTREMITIES: Normal range of motion, no clubbing or edema. Neurovascularly intact NEUROLOGICAL: Cranial nerves II through XII grossly intact. Normal gait and speech. SKIN: Right buttock groin region fluctuant area very tender red induration 9 cm by 8 cm no obvious extension into the vagina labia or rectum Course Orders Ordered: ED Orders 05/15/23 23:37 CT pelvis w con Stat CBC Auto Diff [Complete Blood Count AUTO DIFF] Stat CMP [Comprehensive Metabolic Panel] Stat Lactate (Lactic Acid) Stat 05/15/23 23:38 Procalcitonin Stat Discontinued Medications Ceftriaxone Sodium 2,000 mg/ (Sodium Chloride) 100 mls @ 200 mls/hr IV NOW ONE Stop: 05/16/23 00:33 Last Infusion: 05/16/23 02:07 Dose: 0 mls/hr Documented By: Admin: 05/16/23 01:33 Dose: 200 mls/hr Documented By: AYDIN Vancomycin HCl/Dextrose (Vancomycin) 1,500 mg in 300 mls @ 200 mls/hr IV NOW ONE Stop: 05/16/23 02:01 Last Admin: 05/16/23 02:14 Dose: 200 mls/hr Documented By: AYDIN Ketorolac Tromethamine (Ketorolac 30 Mg/Ml Vial) 15 mg IV NOW ONE Stop: 05/16/23 02:52 Last Admin: 05/16/23 02:58 Dose: 15 mg Documented By: AYDIN Morphine Sulfate (Morphine 2 Mg/Ml Inj) 2 mg IV NOW ONE Stop: 05/15/23 23:38 Last Admin: 05/16/23 00:13 Dose: 2 mg Documented By: AYDIN Vital Signs Vital signs: Vital Signs - 8 hr 05/16/23 00:21 05/16/23 00:22 05/16/23 00:22 Pulse Rate 103 H Blood Pressure 148/67 H Pulse Oximetry 94 95 Oxygen Delivery Method Room Air Room Air 05/16/23 00:30 05/16/23 00:30 05/16/23 01:01 Pulse Rate 101 H 106 H Blood Pressure 121/60 Pulse Oximetry 94 96 Oxygen Delivery Method Room Air Room Air 05/16/23 01:01 05/16/23 01:30 05/16/23 01:30 Pulse Rate 102 H Blood Pressure 171/70 H 163/68 H Pulse Oximetry 94 Oxygen Delivery Method Room Air 05/16/23 02:00 05/16/23 02:00 05/16/23 02:30 Pulse Rate 100 H Blood Pressure 152/67 H 155/70 H Pulse Oximetry 95 Oxygen Delivery Method 05/16/23 02:30 05/16/23 03:00 05/16/23 03:00 Pulse Rate 99 H 106 H Blood Pressure 134/60 Pulse Oximetry 95 95 Oxygen Delivery Method Room Air Room Air 05/16/23 03:30 05/16/23 03:30 Pulse Rate 102 H Blood Pressure 134/60 Pulse Oximetry 94 Oxygen Delivery Method Room Air MDM - Skin/Abscess/Foreign Bdy Lab Data 05/16/23 00:05 05/16/23 00:05 Labs: Lab Results 05/16/23 05/16/23 05/16/23 Range/Units 00:05 00:05 00:05 WBC 18.3 H (4.5-11.0) X10^3/uL RBC 4.74 (4.0-5.2) X10^6/uL Hgb 12.7 (12.0-16.0) g/dL Hct 37.8 (36-46) % MCV 79.8 L (80-100) fL MCH 26.7 (26-34) PG MCHC 33.5 (30-36) % RDW 13.4 (11.6-14.8) % Plt Count 265 (150-400) X10^3/uL Neut % (Auto) 78.6 H (50-75) % Lymph % (Auto) 13.8 L (25-40) % [place] % (Auto) 5.5 (3-14) % Eos % (Auto) 1.4 L (2-4) % Baso % (Auto) 0.7 (0-2) % Neut # (Auto) 47027 H (9663-2978) /uL Lymph # (Auto) 2500 (7691-3485) /uL [place] # (Auto) 1000 H (0-900) /uL Eos # (Auto) 200 (0-450) /uL Baso # (Auto) 100 (0-100) /uL Sodium 132 L (137-145) mmol/L Potassium 3.6 (3.4-5.1) mmol/L Chloride 100 (98-107) mmol/L Carbon Dioxide 21 L (22-32) mmol/L BUN 9 (7-17) mg/dL Creatinine 0.55 (0.52-1.04) mg/dL Estimated GFR > 60 (>60) mL/min BUN/Creatinine Ratio 16.4 (6-22) Glucose 255 H (70-100) mg/dL Lactate 0.9 (0.7-2.1) mmol/L Calcium 9.0 (8.4-10.2) mg/dL Total Bilirubin 0.7 (0.2-1.3) mg/dL AST 15 (14-36) IU/L ALT 12 (<35) IU/L Alkaline Phosphatase 184 H (38-126) U/L Total Protein 7.5 (6.3-8.2) g/dL Albumin 3.8 (3.5-5.0) g/dL Globulin 3.7 (1.7-4.1) g/dL Albumin/Globulin Ratio 1.0 (1.0-2.8) Procalcitonin (<0.5) ng/mL 05/16/23 Range/Units 00:05 WBC (4.5-11.0) X10^3/uL RBC (4.0-5.2) X10^6/uL Hgb (12.0-16.0) g/dL Hct (36-46) % MCV (80-100) fL MCH (26-34) PG MCHC (30-36) % RDW (11.6-14.8) % Plt Count (150-400) X10^3/uL Neut % (Auto) (50-75) % Lymph % (Auto) (25-40) % [place] % (Auto) (3-14) % Eos % (Auto) (2-4) % Baso % (Auto) (0-2) % Neut # (Auto) (9045-8981) /uL Lymph # (Auto) (1397-3215) /uL [place] # (Auto) (0-900) /uL Eos # (Auto) (0-450) /uL Baso # (Auto) (0-100) /uL Sodium (137-145) mmol/L Potassium (3.4-5.1) mmol/L Chloride (98-107) mmol/L Carbon Dioxide (22-32) mmol/L BUN (7-17) mg/dL Creatinine (0.52-1.04) mg/dL Estimated GFR (>60) mL/min BUN/Creatinine Ratio (6-22) Glucose (70-100) mg/dL Lactate (0.7-2.1) mmol/L Calcium (8.4-10.2) mg/dL Total Bilirubin (0.2-1.3) mg/dL AST (14-36) IU/L ALT (<35) IU/L Alkaline Phosphatase (38-126) U/L Total Protein (6.3-8.2) g/dL Albumin (3.5-5.0) g/dL Globulin (1.7-4.1) g/dL Albumin/Globulin Ratio (1.0-2.8) Procalcitonin 0.06 (<0.5) ng/mL Imaging Data CT scan - abdomen/pelvis: Radiologist's Impression: PROCEDURE:? CT PELVIS W CON ? INDICATIONS:? right large peritoneal abscess ? TECHNIQUE:? After the administration of intravenous contrast, 5 mm thick sections acquired from the iliac crests to the symphysis.? 5 mm coronal and sagittal reformats were acquired.? For radiation dose reduction, the following was used:? automated exposure control, adjustment of mA and/or kV according to patient size.? ? COMPARISON:? None. ? FINDINGS:? Image quality:? Excellent.? ? Peritoneum and bowel:? Visualized bowel loops demonstrate normal wall thickness and caliber.? No intraperitoneal free fluid or air.? ? Genitourinary:? Bladder wall thickness is normal.? ? Nodes and vessels:? No iliac, pelvic, or inguinal adenopathy by size criteria.? Iliac vessels demonstrate normal size and enhancement.? ? Bones:? No suspicious bony lesions.? ? Miscellaneous:? There is subcutaneous fat stranding and skin thickening within the right gluteal region extending to the right gluteal fold.? No discrete peripherally enhancing abscess collection.? There is a curvilinear tract extending posterior to the right inguinal region to the right gluteal fold suggestive of a perianal fistula.? No inguinal hernias.? ? IMPRESSION:? ? 1. Subcutaneous fat stranding and skin thickening in the right gluteal region consistent with cellulitis.? An associated curvilinear tract is suggestive of a perianal fistula.? No discrete loculated fluid collection to suggest an abscess. ? ? Dictated by: Hector Hassan M.D. on 05/16/2023 at 2:30 ? ? [facility] Narrative Medical decision making narrative: Patient 47-year-old female history diabetes hypertension hyperlipidemia presenting today with right buttock pain and swelling concern for large abscess. WBC is 18 elevated lactate or procalcitonin is CT does not show large fluid collection but does show concern for possible fistula. Her pain is controlled with medications Toradol and morphine. He was given vancomycin and Rocephin for her antibiotics. Blood pressure remains stable. Clinically patient is area does appear to be an abscess. Just quite large and would benefit from OR I and D. Started last week progressively got worse is extremely painful and more swollen. However CT does not show fluid collection. Dr. Hendrickson on-call surgery has been consulted in regards to fistula. This time recommend admit to the hospitalist keep NPO Dr. Darnell accepts patient Discharge Plan Departure Patient Disposition: Admitted as Observation Clinical Impression: Abscess, Abscess of peritoneum Admit Date/Time: 05/16/23 03:39 Admit Provider: Hong Darnell
--- NOTE | 2023-05-15 23:37 | DI.CT.S_ITS ---
PROCEDURE: CT PELVIS W CON INDICATIONS: right large peritoneal abscess TECHNIQUE: After the administration of intravenous contrast, 5 mm thick sections acquired from the iliac crests to the symphysis. 5 mm coronal and sagittal reformats were acquired. For radiation dose reduction, the following was used: automated exposure control, adjustment of mA and/or kV according to patient size. COMPARISON: None. FINDINGS: Image quality: Excellent. Peritoneum and bowel: Visualized bowel loops demonstrate normal wall thickness and caliber. No intraperitoneal free fluid or air. Genitourinary: Bladder wall thickness is normal. Nodes and vessels: No iliac, pelvic, or inguinal adenopathy by size criteria. Iliac vessels demonstrate normal size and enhancement. Bones: No suspicious bony lesions. Miscellaneous: There is subcutaneous fat stranding and skin thickening within the right gluteal region extending to the right gluteal fold. No discrete peripherally enhancing abscess collection. There is a curvilinear tract extending posterior to the right inguinal region to the right gluteal fold suggestive of a perianal fistula. No inguinal hernias. IMPRESSION: 1. Subcutaneous fat stranding and skin thickening in the right gluteal region consistent with cellulitis. An associated curvilinear tract is suggestive of a perianal fistula. No discrete loculated fluid collection to suggest an abscess. Dictated by: Hector Hassan M.D. on 05/16/2023 at 2:30 Approved by: Hector Hassan M.D. on 05/16/2023 at 2:33
[2023-05-16] VITALS (24 sets, daily range): BP systolic 104–171; BP diastolic 59–87; PULSE 95–113; RESP 12–20; TEMP 35.9–37; O2SAT 94–99; BMI 34.0
[2023-05-16] MEDS: MORPHINE 2 MG/ML INJ IV (00:13)
[2023-05-16 00:23] LABS: Add Manual Diff / Slide Review NO; Basophils Absolute Auto 100 /uL (0-100); Basophils Percent Auto 0.7 % (0-2); Eosinophils Absolute Auto 200 /uL (0-450); Eosinophils Percent Auto 1.4 % (2-4); Hematocrit 37.8 % (36-46); Hemoglobin 12.7 g/dL (12.0-16.0); Lymphocytes Absolute Auto 2500 /uL (1100-4500); Lymphocytes Percent Auto 13.8 % (25-40); Mean Corpuscular HGB Conc 33.5 % (30-36); Mean Corpuscular Hemoglobin 26.7 PG (26-34); Mean Corpuscular Volume 79.8 fL (80-100); Monocytes Absolute Auto 1000 /uL (0-900); Monocytes Percent Auto 5.5 % (3-14); Neutrophils Absolute Auto 14400 /uL (1500-7000); Neutrophils Percent Auto 78.6 % (50-75); Platelet Count 265 X10^3/uL (150-400); Red Blood Cell Count 4.74 X10^6/uL (4.0-5.2); Red Cell Distribution Width 13.4 % (11.6-14.8); White Blood Cell Count 18.3 X10^3/uL (4.5-11.0)
[2023-05-16 00:32] LABS: Lactate (Lactic Acid) 0.9 mmol/L (0.7-2.1)
[2023-05-16 00:34] LABS: Alanine Aminotransferase 12 IU/L (<35); Albumin 3.8 g/dL (3.5-5.0); Alkaline Phosphatase 184 U/L (38-126); Aspartate Aminotransferase 15 IU/L (14-36); BUN Creatinine Ratio 16.4 (6-22); Bilirubin Total 0.7 mg/dL (0.2-1.3); Blood Urea Nitrogen 9 mg/dL (7-17); Carbon Dioxide 21 mmol/L (22-32); Chloride 100 mmol/L (98-107); Estimated Glomerular Filt Rate > 60 mL/min (>60); Globulin 3.7 g/dL (1.7-4.1); Glucose 255 mg/dL (70-100); HEMOLYSIS < 15 (0-50); Potassium 3.6 mmol/L (3.4-5.1); Sodium 132 mmol/L (137-145); Total Protein 7.5 g/dL (6.3-8.2)
[2023-05-16 00:50] LABS: Procalcitonin 0.06 ng/mL (<0.5)
[2023-05-16] MEDS: cefTRIAXone 2,000 MG in SODIUM CHLORIDE 0.9% 100 ML 200 MG IV ×2 (01:33→22:40)
[2023-05-16] MEDS: VANCOMYCIN 1,500 MG/300 ML PIGGYBACK 200 MG IV (02:14)
[2023-05-16] MEDS: KETOROLAC 30 MG/ML VIAL 15 MG IV (02:58)
--- NOTE | 2023-05-16 05:43 | PM.HP.1 ---
History of Present Illness History of Present Illness Chief complaint: Abscess Narrative: 47-year-old female history of diabetes hypertension hyperlipidemia, GERD presenting today with abscess on right groin area.? sHe reports it has been there for at least 1 week. The last couple of days it has gotten significantly worse and more painful.? She was evaluated here 2 days ago after being seen by dermatology who sent to the ED for evaluation.? She was placed on doxycycline and clindamycin she has has not helped.? She is now having increasing pain.? She reports that the pain is quite intense now.? She is had some body aches she really has not felt well.? She does not check her glucose regularly she is not supposed to she is not sure what it is.? She that denies any nausea or vomiting.? She was started on doxycycline with 3 doses taken, but feels like it has grown and intensified. [facility] Medical History (Updated 05/16/23 @ 05:53 by Hong Darnell MD) Anxiety Bilateral hip pain COVID-19 virus infection (11/01/20) Dysmenorrhea Eczema Fatigue Gastroenteritis GERD (gastroesophageal reflux disease) HTN (hypertension) Hyperlipidemia Hyperlipidemia Insomnia Migraines Neuropathy OCD (obsessive compulsive disorder) Onychomycosis SHIVANI on CPAP Osteopenia Peripheral neuropathy Pneumonia (~10/2018) Recurrent sinusitis Recurrent UTI Type 2 diabetes mellitus Type 2 diabetes mellitus Unilateral congenital absence of kidney Surgical History History of esophagogastroduodenoscopy (EGD) History of orthopedic surgery (12/14/21) History of surgery (04/28/20) History of surgery (11/27/18) Hx laparoscopic cholecystectomy Hx of fasciotomy (01/30/18) Hx of reduction mammoplasty Family History Father Hypertension Mother Osteoporosis Social History household members: spouse Smoking Status: Never smoker alcohol intake: current Meds Home Medications and Allergies Home Medications Medication Instructions Recorded Confirmed Type amitriptyline 100 mg tablet See Rx Instructions .Route 06/13/22 05/16/23 Rx .COMPLEX #90 tabs amlodipine 5 mg tablet 5 mg PO DAILY #90 tabs 06/13/22 05/16/23 Rx atorvastatin 10 mg tablet See Rx Instructions .Route 06/13/22 05/16/23 Rx .COMPLEX #90 tabs bupropion HCl 100 mg tablet,12 hr See Rx Instructions .Route 06/13/22 05/16/23 Rx sustained-release .COMPLEX #90 tabs pantoprazole 40 mg tablet,delayed See Rx Instructions .Route 06/13/22 05/16/23 Rx release .COMPLEX #90 tabs propranolol 80 mg tablet 80 mg PO DAILY #90 tabs 06/13/22 05/16/23 Rx sumatriptan succinate 100 mg tablet See Rx Instructions PO .COMPLEX 06/13/22 05/16/23 Rx #60 tabs insulin aspart U-100 100 unit/mL 5 unit (0.05 mL) SUBCUT QACDINNER 11/27/22 05/16/23 Rx (3 mL) subcutaneous pen (Novolog #15 mL FlexPen U-100 Insulin aspart) insulin glargine 100 unit/mL (3 10 unit (0.1 mL) SUBCUT QPM #15 mL 11/27/22 05/16/23 Rx mL) subcutaneous pen (Lantus Solostar U-100 Insulin) paroxetine HCl 30 mg tablet See Rx Instructions .Route 02/11/23 05/16/23 Rx .COMPLEX #180 tabs pregabalin 50 mg capsule (Lyrica) See Rx Instructions PO .COMPLEX 03/21/23 05/16/23 Rx #150 caps levonorgestrel-ethinyl estradiol See Rx Instructions .Route 04/24/23 05/16/23 Rx 0.1 mg-20 mcg tablet (Falmina (28)) .COMPLEX #84 tabs doxycycline monohydrate 100 mg 100 mg PO BID #20 caps 05/14/23 05/16/23 Rx capsule ibuprofen 800 mg tablet 800 mg PO Q8H PRN pain #20 tabs 05/14/23 05/16/23 Rx Allergies Allergy/AdvReac Type Severity Reaction Status Date / Time Sulfa (Sulfonamide Allergy Intermediate RASH Verified 05/14/23 08:53 Antibiotics) [SULFA (SULFONAMIDE ANTIBIOTICS)] adhesive [ADHESIVE] Allergy Unknown LOCALIZED Verified 05/14/23 08:53 RASH Penicillins [PENICILLINS] Allergy Unknown Verified 05/14/23 08:53 metformin [METFORMIN] AdvReac Unknown DIARRHEA Verified 05/14/23 08:53 Review of Systems Constitutional Constitutional: Reports as per HPI and Reports system reviewed and no additional complaints, except as documented Eyes Eyes: Reports as per HPI and Reports system reviewed and no additional complaints, except as documented ENT Ears, Nose, Mouth, and Throat: Yes as per HPI, Yes system reviewed and no additional complaints, except as documented, No dysphagia and No odynophagia Cardiovascular Cardiovascular: Reports system reviewed and no additional complaints, except as documented Respiratory Respiratory: Reports system reviewed and no additional complaints, except as documented Gastrointestinal Gastrointestinal: Denies as per HPI, Reports system reviewed and no additional complaints, except as documented, Denies abdominal pain, Denies belching, Denies melena, Denies bloating, Denies hematochezia, Denies change in bowel habits, Denies tenesmus, Denies change in stool character, Denies coffee ground emesis, Denies constipation, Denies cramping, Denies dysphagia, Denies excessive flatus, Denies heartburn, Denies loose stools, Denies nausea, Denies odynophagia, Denies vomiting, Denies hematemesis and Reports other Musculoskeletal Comments: pain in right gluteal area Neurologic Neurologic: Denies confusion Psychiatric Psychiatric: Denies as per HPI, Reports system reviewed and no additional complaints, except as documented, Denies abnormal sleep pattern, Denies anxiety, Denies change in appetite, Denies confusion, Denies depression and Denies auditory hallucinations Exam Vital Signs (past 8 hours): - 05/16/23 00:21 05/16/23 00:22 05/16/23 00:22 Temperature Pulse Rate 103 H Respiratory Rate Blood Pressure 148/67 H Pulse Oximetry 94 95 Oxygen Delivery Method Room Air Room Air Oxygen Flow Rate 05/16/23 00:30 05/16/23 00:30 05/16/23 01:01 Temperature Pulse Rate 101 H 106 H Respiratory Rate Blood Pressure 121/60 Pulse Oximetry 94 96 Oxygen Delivery Method Room Air Room Air Oxygen Flow Rate 05/16/23 01:01 05/16/23 01:30 05/16/23 01:30 Temperature Pulse Rate 102 H Respiratory Rate Blood Pressure 171/70 H 163/68 H Pulse Oximetry 94 Oxygen Delivery Method Room Air Oxygen Flow Rate 05/16/23 02:00 05/16/23 02:00 05/16/23 02:30 Temperature Pulse Rate 100 H Respiratory Rate Blood Pressure 152/67 H 155/70 H Pulse Oximetry 95 Oxygen Delivery Method Oxygen Flow Rate 05/16/23 02:30 05/16/23 03:00 05/16/23 03:00 Temperature Pulse Rate 99 H 106 H Respiratory Rate Blood Pressure 134/60 Pulse Oximetry 95 95 Oxygen Delivery Method Room Air Room Air Oxygen Flow Rate 05/16/23 03:30 05/16/23 03:30 05/16/23 05:14 Temperature 97.7 F Pulse Rate 102 H 106 H Respiratory Rate 20 Blood Pressure 134/60 157/71 H Pulse Oximetry 94 97 Oxygen Delivery Method Room Air Oxygen Flow Rate 0 Oxygen Delivery Method Room Air Oxygen Flow Rate 0 Const General: cooperative, comfortable and well developed Orientation: alert and oriented x3 HENMT Head: normal to inspection and atraumatic Face and sinus: normal facial exam Mouth: oral mucosae normal and moist mucous membranes Throat: posterior oropharynx normal Eyes General: appearance normal, both eyes and all related structures Pupils: PERRL EOM: EOM intact bilaterally Neck Neck: normal visual inspection and full ROM Chest Chest: normal inspection of the chest Resp Effort & Inspection: normal respiratory effort and able to speak in complete sentences Auscultation: clear to auscultation bilaterally Cardio Palpation: normal PMI Rate: regular rate Rhythm: regular rhythm Heart Sounds: S1 normal and S2 normal GI Inspection: normal to inspection Palpation: soft and no hepatosplenomegaly Auscultation: normal bowel sounds Skin Other: ?Right buttock groin region fluctuant area very tender red induration 9 cm by 8 cm no obvious extension into the vagina labia or rectum Neuro General: patient alert, patient awake, patient oriented x3 and no focal motor deficits Cognition: normal cognition Motor: muscle tone normal throughout Sensory Exam: no sensory deficits noted Extrem General: full ROM and no calf tenderness Psych Appearance: grossly normal Mental Status: mental status grossly normal Speech and Movement: speech and movement normal Objective Labs 05/16/23 00:05 05/16/23 00:05 Labs: Laboratory Results - last 24 hr 05/16/23 05/16/23 05/16/23 00:05 00:05 00:05 WBC 18.3 H RBC 4.74 Hgb 12.7 Hct 37.8 MCV 79.8 L MCH 26.7 MCHC 33.5 RDW 13.4 Plt Count 265 Neut % (Auto) 78.6 H Lymph % (Auto) 13.8 L [place] % (Auto) 5.5 Eos % (Auto) 1.4 L Baso % (Auto) 0.7 Neut # (Auto) 07334 H Lymph # (Auto) 2500 [place] # (Auto) 1000 H Eos # (Auto) 200 Baso # (Auto) 100 Sodium 132 L Potassium 3.6 Chloride 100 Carbon Dioxide 21 L BUN 9 Creatinine 0.55 Estimated GFR > 60 BUN/Creatinine Ratio 16.4 Glucose 255 H Lactate 0.9 Calcium 9.0 Total Bilirubin 0.7 AST 15 ALT 12 Alkaline Phosphatase 184 H Total Protein 7.5 Albumin 3.8 Globulin 3.7 Albumin/Globulin Ratio 1.0 Procalcitonin 05/16/23 00:05 WBC RBC Hgb Hct MCV MCH MCHC RDW Plt Count Neut % (Auto) Lymph % (Auto) [place] % (Auto) Eos % (Auto) Baso % (Auto) Neut # (Auto) Lymph # (Auto) [place] # (Auto) Eos # (Auto) Baso # (Auto) Sodium Potassium Chloride Carbon Dioxide BUN Creatinine Estimated GFR BUN/Creatinine Ratio Glucose Lactate Calcium Total Bilirubin AST ALT Alkaline Phosphatase Total Protein Albumin Globulin Albumin/Globulin Ratio Procalcitonin 0.06 Assessment & Plan Assessment and plan (1) Abscess, gluteal, right: Problem details: CT of the pelvis 1. Subcutaneous fat stranding and skin thickening in the right gluteal region consistent with cellulitis. An associated curvilinear tract is suggestive of a perianal fistula. No discrete loculated fluid collection to suggest an abscess. Status: Acute Plan: -ceftriaxone and vancomycin -Keep her nothing by mouth -Surgery consult -IV fluids -Pain medications and Tylenol for fever when necessary (2) Hyperlipidemia: Qualifiers: Hyperlipidemia type: mixed hyperlipidemia Qualified Code(s): E78.2 - Mixed hyperlipidemia Status: Acute Plan: -restarts statins (3) Essential hypertension: Status: Chronic Plan: -restart amlodipine and propranolol (4) Type 2 diabetes mellitus: Status: Acute Plan: -monitor blood glucose -SSI -restart pregabalin (5) GERD (gastroesophageal reflux disease): Status: Acute Plan: -restarts PPI (6) OCD (obsessive compulsive disorder): Status: Acute Plan: -restart amitriptyline, bupropion,paroxetine (7) Migraines: Status: Acute Plan: -sumatriptan when necessary Time Spent With Patient Time with patient: 50 to 69 minutes with 50% spent counseling/coordinating care Quality VTE Deep Vein Thrombosis/Pulmonary Embolism Present on Admission: No MIPS - Admit I confirm the patient?s Advance Care Plan is present, Code status is documented, Surrogate decision maker is in patient?s record [If Yes, STOP here]: Yes MIPS - Meds 'Current medications' to include all prescriptions, [id number] products, herbals, cannabis/cannabidiol products, and vitamin/mineral/dietary (nutritional) supplements. I have utilized all available resources to obtain, update, or review the patient?s current medications. [If Yes, STOP here]: Yes
[2023-05-16] MEDS: SODIUM CHLORIDE 0.9% 1,000 ML 100 ML IV ×2 (06:01→17:22)
--- NOTE | 2023-05-16 06:38 | PC.ADMIT ---
[email or web address] [facility] Admission Note: Patient arrived to unit @ 0605 from ED via gurney. Able to ambulate from gurney (in hallway) to bed with no difficulty. A/O x 4, able to make needs known. Bed in low position, call light within reach. The patient,Stephanie Castro,47 y/o, was given written information regarding hospital policies, unit procedures and contact persons. Patient's smoking status: Never smoker. Vital Signs - 8 hr 05/16/23 00:21 05/16/23 00:22 05/16/23 00:22 Temperature Pulse Rate 103 H Respiratory Rate Blood Pressure 148/67 H Pulse Oximetry 94 95 Oxygen Delivery Method Room Air Room Air Oxygen Flow Rate 05/16/23 00:30 05/16/23 00:30 05/16/23 01:01 Temperature Pulse Rate 101 H 106 H Respiratory Rate Blood Pressure 121/60 Pulse Oximetry 94 96 Oxygen Delivery Method Room Air Room Air Oxygen Flow Rate 05/16/23 01:01 05/16/23 01:30 05/16/23 01:30 Temperature Pulse Rate 102 H Respiratory Rate Blood Pressure 171/70 H 163/68 H Pulse Oximetry 94 Oxygen Delivery Method Room Air Oxygen Flow Rate 05/16/23 02:00 05/16/23 02:00 05/16/23 02:30 Temperature Pulse Rate 100 H Respiratory Rate Blood Pressure 152/67 H 155/70 H Pulse Oximetry 95 Oxygen Delivery Method Oxygen Flow Rate 05/16/23 02:30 05/16/23 03:00 05/16/23 03:00 Temperature Pulse Rate 99 H 106 H Respiratory Rate Blood Pressure 134/60 Pulse Oximetry 95 95 Oxygen Delivery Method Room Air Room Air Oxygen Flow Rate 05/16/23 03:30 05/16/23 03:30 05/16/23 05:14 Temperature 97.7 F Pulse Rate 102 H 106 H Respiratory Rate 20 Blood Pressure 134/60 157/71 H Pulse Oximetry 94 97 Oxygen Delivery Method Room Air Oxygen Flow Rate 0
[2023-05-16] MEDS: HYDROMORPHONE 0.5 MG INJ IV ×3 (06:39→17:22)
[2023-05-16 07:05] LABS: Add Manual Diff / Slide Review NO; Basophils Absolute Auto 0 /uL (0-100); Basophils Percent Auto 0.2 % (0-2); Eosinophils Absolute Auto 200 /uL (0-450); Eosinophils Percent Auto 1.3 % (2-4); Hematocrit 35.9 % (36-46); Hemoglobin 11.9 g/dL (12.0-16.0); Lymphocytes Absolute Auto 2300 /uL (1100-4500); Lymphocytes Percent Auto 12.9 % (25-40); Mean Corpuscular HGB Conc 33.2 % (30-36); Mean Corpuscular Hemoglobin 26.6 PG (26-34); Mean Corpuscular Volume 80.3 fL (80-100); Monocytes Absolute Auto 1200 /uL (0-900); Monocytes Percent Auto 7.1 % (3-14); Neutrophils Absolute Auto 13800 /uL (1500-7000); Neutrophils Percent Auto 78.5 % (50-75); Platelet Count 279 X10^3/uL (150-400); Red Blood Cell Count 4.47 X10^6/uL (4.0-5.2); Red Cell Distribution Width 13.4 % (11.6-14.8); White Blood Cell Count 17.5 X10^3/uL (4.5-11.0)
--- NOTE | 2023-05-16 08:11 | PC.NURSE ---
Addendum entered by Nely Saldivar R.N. 05/16/23 17:37: Patient just down to get I&D of r.gluteal/groin abcess. She was medicated prior with dilaudid. Addendum entered by Nely Saldivar R.N. 05/16/23 15:13: Patient complained of headache earlier and 9/10 r. izzy/anal abcess discomfort. IV dilaudid given to patient and helpful. She will be going for her I/D later this afternoon. Up to the bathroom with one person assist. Tolerating ivf. Blood Sugar 191 and small dose of insulin given. at bedside. Original Note: Patients blood sugar 226, sh is type 2 diabetic. She is npo at this time and will be having an i/d of an abcess/fistula under her r.buttock/groin area. Abcess is red and warm to touch and hard. Patient is getting iv pain medication and this is helpful for her discomfort.
[2023-05-16] MEDS: INSULIN LISPRO 100 UNIT/ML 3ML VIAL SUBCUT ×2 (08:40→15:49)
[2023-05-16] MEDS: VANCOMYCIN 1,250 MG/250 ML PIGGYBACK 250 MG IV ×2 (12:26→21:03)
--- NOTE | 2023-05-16 13:49 | P.CONS_ITS ---
History of Present Illness Consult details Date Patient Seen: 05/16/23 Time Patient Seen: 13:49 Chief complaint: Abscess Reason for consult: Perineal abscess Requesting provider: Dennis Witt Narrative: 46-year-old woman with diabetes hypertension OCD presents with history of a ?pimple? on her bottom starting last week. She said it is in the location where she could not see it well she felt that maybe after a day or 2 was scratched it began to become sore and bigger and bigger until it was hard and there was some discharge from it. She experienced chills but no fevers endorses a headache as well. She came to the emergency room to have the area checked and according to the patient and her family member at the bedside presently the emergency room doctor stated that this area was large enough that it should be drained in the operating room. She is had several foot surgeries in the past as well as breast reduction and gallbladder surgery. She is never had an infection like this before Meds Home Medications and Allergies Home Medications Medication Instructions Recorded Confirmed Type amitriptyline 100 mg tablet See Rx Instructions .Route 06/13/22 05/16/23 Rx .COMPLEX #90 tabs amlodipine 5 mg tablet 5 mg PO DAILY #90 tabs 06/13/22 05/16/23 Rx atorvastatin 10 mg tablet See Rx Instructions .Route 06/13/22 05/16/23 Rx .COMPLEX #90 tabs bupropion HCl 100 mg tablet,12 hr See Rx Instructions .Route 06/13/22 05/16/23 Rx sustained-release .COMPLEX #90 tabs pantoprazole 40 mg tablet,delayed See Rx Instructions .Route 06/13/22 05/16/23 Rx release .COMPLEX #90 tabs propranolol 80 mg tablet 80 mg PO DAILY #90 tabs 06/13/22 05/16/23 Rx sumatriptan succinate 100 mg tablet See Rx Instructions PO .COMPLEX 06/13/22 05/16/23 Rx #60 tabs insulin aspart U-100 100 unit/mL 5 unit (0.05 mL) SUBCUT QACDINNER 11/27/22 05/16/23 Rx (3 mL) subcutaneous pen (Novolog #15 mL FlexPen U-100 Insulin aspart) insulin glargine 100 unit/mL (3 10 unit (0.1 mL) SUBCUT QPM #15 mL 11/27/22 05/16/23 Rx mL) subcutaneous pen (Lantus Solostar U-100 Insulin) paroxetine HCl 30 mg tablet See Rx Instructions .Route 02/11/23 05/16/23 Rx .COMPLEX #180 tabs pregabalin 50 mg capsule (Lyrica) See Rx Instructions PO .COMPLEX 03/21/23 05/16/23 Rx #150 caps levonorgestrel-ethinyl estradiol See Rx Instructions .Route 04/24/23 05/16/23 Rx 0.1 mg-20 mcg tablet (Falmina (28)) .COMPLEX #84 tabs doxycycline monohydrate 100 mg 100 mg PO BID #20 caps 05/14/23 05/16/23 Rx capsule ibuprofen 800 mg tablet 800 mg PO Q8H PRN pain #20 tabs 05/14/23 05/16/23 Rx Allergies Allergy/AdvReac Type Severity Reaction Status Date / Time Sulfa (Sulfonamide Allergy Intermediate RASH Verified 05/14/23 08:53 Antibiotics) [SULFA (SULFONAMIDE ANTIBIOTICS)] adhesive [ADHESIVE] Allergy Unknown LOCALIZED Verified 05/14/23 08:53 RASH Penicillins [PENICILLINS] Allergy Unknown Verified 05/14/23 08:53 metformin [METFORMIN] AdvReac Unknown DIARRHEA Verified 05/14/23 08:53 Exam Vital Signs (past 8 hours): - 05/16/23 08:22 Temperature 97.3 F L Pulse Rate 113 H Respiratory Rate 17 Blood Pressure 135/70 Pulse Oximetry 98 Oxygen Flow Rate 0 Oxygen Delivery Method Room Air Oxygen Flow Rate 0 Const General: cooperative and comfortable Nutritional Appearance: obese Orientation: alert, awake and oriented x3 HENMT Head: normal to inspection Eyes General: appearance normal, both eyes and all related structures Resp Effort & Inspection: normal respiratory effort and able to speak in complete sentences Other: The area of induration extends over the right labia and extends towards the right buttocks and the anal verge. There is a large erythema area and a little bit of fluctuance palpable beneath the area. Skin General: induration and warm Objective Labs 05/16/23 06:40 05/16/23 00:05 Labs: Laboratory Results - last 24 hr 05/16/23 05/16/23 05/16/23 00:05 00:05 00:05 WBC 18.3 H RBC 4.74 Hgb 12.7 Hct 37.8 MCV 79.8 L MCH 26.7 MCHC 33.5 RDW 13.4 Plt Count 265 Neut % (Auto) 78.6 H Lymph % (Auto) 13.8 L [place] % (Auto) 5.5 Eos % (Auto) 1.4 L Baso % (Auto) 0.7 Neut # (Auto) 55386 H Lymph # (Auto) 2500 [place] # (Auto) 1000 H Eos # (Auto) 200 Baso # (Auto) 100 Sodium 132 L Potassium 3.6 Chloride 100 Carbon Dioxide 21 L BUN 9 Creatinine 0.55 Estimated GFR > 60 BUN/Creatinine Ratio 16.4 Glucose 255 H Lactate 0.9 Calcium 9.0 Total Bilirubin 0.7 AST 15 ALT 12 Alkaline Phosphatase 184 H Total Protein 7.5 Albumin 3.8 Globulin 3.7 Albumin/Globulin Ratio 1.0 Procalcitonin 05/16/23 05/16/23 00:05 06:40 WBC 17.5 H RBC 4.47 Hgb 11.9 L Hct 35.9 L MCV 80.3 MCH 26.6 MCHC 33.2 RDW 13.4 Plt Count 279 Neut % (Auto) 78.5 H Lymph % (Auto) 12.9 L [place] % (Auto) 7.1 Eos % (Auto) 1.3 L Baso % (Auto) 0.2 Neut # (Auto) 51509 H Lymph # (Auto) 2300 [place] # (Auto) 1200 H Eos # (Auto) 200 Baso # (Auto) 0 Sodium Potassium Chloride Carbon Dioxide BUN Creatinine Estimated GFR BUN/Creatinine Ratio Glucose Lactate Calcium Total Bilirubin AST ALT Alkaline Phosphatase Total Protein Albumin Globulin Albumin/Globulin Ratio Procalcitonin 0.06 [facility] Medical History (Updated 05/16/23 @ 18:00 by Mone Young MD) Anxiety Bilateral hip pain COVID-19 virus infection (11/01/20) Dysmenorrhea Eczema Fatigue Gastroenteritis GERD (gastroesophageal reflux disease) HTN (hypertension) Hyperlipidemia Hyperlipidemia Insomnia Migraines Neuropathy OCD (obsessive compulsive disorder) Onychomycosis SHIVANI on CPAP Osteopenia Peripheral neuropathy Pneumonia (~10/2018) Recurrent sinusitis Recurrent UTI Type 2 diabetes mellitus Type 2 diabetes mellitus Unilateral congenital absence of kidney Surgical History History of esophagogastroduodenoscopy (EGD) History of orthopedic surgery (12/14/21) History of surgery (04/28/20) History of surgery (11/27/18) Hx laparoscopic cholecystectomy Hx of fasciotomy (01/30/18) Hx of reduction mammoplasty Family History Father Hypertension Mother Osteoporosis Social History household members: spouse Tobacco & Substance Use Smoking Status: Never smoker alcohol intake: current Assessment & Plan Assessment and plan (1) Perirectal abscess: Status: Acute (2) Abscess, gluteal, right: Problem details: CT of the pelvis 1. Subcutaneous fat stranding and skin thickening in the right gluteal region consistent with cellulitis. An associated curvilinear tract is suggestive of a perianal fistula. No discrete loculated fluid collection to suggest an abscess. Status: Acute Assessment & Plan narrative: I have personally reviewed and interpreted the CT scan imaging. There is a large area of cellulitic changes however does appear to have a tract that indicates a perirectal origin of this infection. I think it would be beneficial to try to obtain some culture specimen from this small area of abscess that is seen on the CT scan. I may not be able to do a large incision and drainage in the setting of cellulitis but sampling will certainly help tailor the antibiotic regimen and I will also be able to tell if there is a larger abscess cavity if I proceed to the operating room for an I and D. I discussed with the patient risks benefits and alternatives of incision and drainage and the probable need for ongoing antibiotic therapy. Her questions were answered and she would like to proceed.
--- NOTE | 2023-05-16 15:15 | CM.DANOTE ---
Addendum entered by EARNESTINE Bermudez 05/16/23 15:31: ADD: Addtl review of the chart says I+D scheduled this afternoon. CM team following. packing? Spouse will likely be able to manage any dressing needs AMANDO Original Note: Initial DCP Assessment Note Pt is a 47 yo female, resident of [place], presents with an abscess near right groin area, failed outpatient abx treatment, admitted for medical management of abscess suspected to need I+D in the OR PCP: Brayan Vila Payer: Jose David Persaud Reviewed chart, met w/patient and her spouse Andrew, brief visit as they were waiting on DR Young and admitted they were feeling anxious to know more about next steps. Patient stated she has been in pain today Patient lives w/spouse, indp at baseline. Patient denies needs from this HIV COUNSELOR today and feels confident that spouse can assist upon discharge and in her recovery Dr Young entered room at this point Plan: Anticipate discharge home w/family, CM team will follow closely EARNESTINE Jones Discharge Planning/Care Management Advanced directive, confirm from FAMILY Start: 05/16/23 06:25 Freq: Q24H Status: Active Protocol: Document 05/16/23 06:25 (Rec: 05/16/23 06:29 [id number]) Advance Directive, confirm on record Time 06:00 Person contacted patient Copy received No CM Discharge Assessment Start: 05/16/23 15:08 Freq: Status: Active Protocol: Document 05/16/23 15:08 (Rec: 05/16/23 15:15 [id number]) Discharge Planning Assessment Assigned Assembly Hand EARNESTINE Martínez DPOA/Assigned Designee Name Andrew Castro, spouse Contact Information [phone] Advance Directives? No Advance Directives on File No History Provided By Patient,Significant Other Prior Living Arrangements House Household Members spouse Type of transportation used prior to Drives own vehicle admit Independent with ADL's Yes Is patient alert and oriented? Yes Barriers to Discharge No Comment Expect home w/spouse upon discharge Discharge Plan Home Transportation Arrangement Spouse Referrals Initiated None needed
--- NOTE | 2023-05-16 16:25 | PM.PN.1 ---
Subjective Subjective Date Patient Seen: 05/16/23 Interval history: 47 yo female with HTN, HLD, IDDM admitted due to right gluteal cellulitis/abscess. Pt notes sig gluteal pain. Exam Vital Signs (past 8 hours): - 05/16/23 14:00 Temperature 97.1 F L Pulse Rate 107 H Respiratory Rate 17 Blood Pressure 104/64 Pulse Oximetry 99 Oxygen Flow Rate 0 Oxygen Delivery Method Room Air Oxygen Flow Rate 0 Narrative Exam Narrative: gen: alert, + discomfort There is obviously swollen, red indurated mass on inner rt gluteum extending anteriorly Objective Labs 05/16/23 06:40 05/16/23 00:05 Labs: Laboratory Results - last 24 hr 05/16/23 05/16/23 05/16/23 00:05 00:05 00:05 WBC 18.3 H RBC 4.74 Hgb 12.7 Hct 37.8 MCV 79.8 L MCH 26.7 MCHC 33.5 RDW 13.4 Plt Count 265 Neut % (Auto) 78.6 H Lymph % (Auto) 13.8 L [place] % (Auto) 5.5 Eos % (Auto) 1.4 L Baso % (Auto) 0.7 Neut # (Auto) 48282 H Lymph # (Auto) 2500 [place] # (Auto) 1000 H Eos # (Auto) 200 Baso # (Auto) 100 Sodium 132 L Potassium 3.6 Chloride 100 Carbon Dioxide 21 L BUN 9 Creatinine 0.55 Estimated GFR > 60 BUN/Creatinine Ratio 16.4 Glucose 255 H Lactate 0.9 Calcium 9.0 Total Bilirubin 0.7 AST 15 ALT 12 Alkaline Phosphatase 184 H Total Protein 7.5 Albumin 3.8 Globulin 3.7 Albumin/Globulin Ratio 1.0 Procalcitonin 05/16/23 05/16/23 00:05 06:40 WBC 17.5 H RBC 4.47 Hgb 11.9 L Hct 35.9 L MCV 80.3 MCH 26.6 MCHC 33.2 RDW 13.4 Plt Count 279 Neut % (Auto) 78.5 H Lymph % (Auto) 12.9 L [place] % (Auto) 7.1 Eos % (Auto) 1.3 L Baso % (Auto) 0.2 Neut # (Auto) 68638 H Lymph # (Auto) 2300 [place] # (Auto) 1200 H Eos # (Auto) 200 Baso # (Auto) 0 Sodium Potassium Chloride Carbon Dioxide BUN Creatinine Estimated GFR BUN/Creatinine Ratio Glucose Lactate Calcium Total Bilirubin AST ALT Alkaline Phosphatase Total Protein Albumin Globulin Albumin/Globulin Ratio Procalcitonin 0.06 PFSH Medical History (Updated 05/16/23 @ 05:53 by Hong Darnell MD) Anxiety Bilateral hip pain COVID-19 virus infection (11/01/20) Dysmenorrhea Eczema Fatigue Gastroenteritis GERD (gastroesophageal reflux disease) HTN (hypertension) Hyperlipidemia Hyperlipidemia Insomnia Migraines Neuropathy OCD (obsessive compulsive disorder) Onychomycosis SHIVANI on CPAP Osteopenia Peripheral neuropathy Pneumonia (~10/2018) Recurrent sinusitis Recurrent UTI Type 2 diabetes mellitus Type 2 diabetes mellitus Unilateral congenital absence of kidney Surgical History History of esophagogastroduodenoscopy (EGD) History of orthopedic surgery (12/14/21) History of surgery (04/28/20) History of surgery (11/27/18) Hx laparoscopic cholecystectomy Hx of fasciotomy (01/30/18) Hx of reduction mammoplasty Family History Father Hypertension Mother Osteoporosis Social History household members: spouse Smoking Status: Never smoker alcohol intake: current Assessment & Plan Assessment & Plan narrative: 1. Right gluteal cellulitis/abscess -poss perianal fistula on CT -surg consulted -pt NPO pending surg eval -cont Vanc and ceftriaxone -pain mgmt and IV fluids 2. IDDM -cont lantus -s/s insulin -resume pregabalin 3. HTN, HLD -cont amlodipine, propranolol, atorvastatin 4. OCD -cont amitriptyline, bupropion, paroxetine 5. Migraines -cont propranolol, sumatriptan prn 6. GERD -cont PPI Quality VTE Deep Vein Thrombosis/Pulmonary Embolism Present on Admission: No
[2023-05-16] MEDS: LACTATED RINGERS 1,000 ML 42 ML IV (18:04)
--- NOTE | 2023-05-16 19:40 | SUR.OPER ---
Lithotomy on padded OR bed, head on pillow, arms secured on padded arm boards at <90 degrees abduction. Legs secured in padded yellow fins stirrups.
[2023-05-16] MEDS: SUMAtriptan 6 MG/0.5 ML VIAL SUBCUT (19:50)
[2023-05-16] MEDS: BUPIVACAINE LIPOSOME 266 MG/20 ML VIAL INJ (19:50)
[2023-05-16] MEDS: BUPIVACAINE 0.25% (PF) VIAL 30 ML INJ (19:51)
--- NOTE | 2023-05-16 20:38 | PM.OP.1 ---
Operative Date/Time/Diagnoses Date of procedure: 05/16/23 Time of procedure: 20:38 Pre-op diagnosis: Perirectal abscess Post-op diagnosis: same Procedure & Clinicians Procedure: Incision and drainage Same procedure as scheduled: Yes Indications: Perirectal abscess punctate area of purulence seen on exam Surgeon: Mone Young Click Yes if Unassisted: Yes Anesthesia Type: MAC +/- Operative Notes Procedure in detail: Patient was taken to the operating room and placed in a lithotomy position bilateral SCDs were placed she is on antibiotics for her infection. A time-out was performed and monitored anesthetic care was provided. Exparel was injected around the anal verge and the punctate area of purulent drainage was milked. A digital rectal exam was performed and the opening to the perirectal abscess where pressure was placed cause it the purulence to be expressed from this area and a culture swab was used to collect the specimen. The draining area was explored with a lacrimal duct probe and was then opened using a 15 blade scalpel. The wound was then explored with a finger and the area of loculations were taken down. At this point a larger elliptical excision was made overlying the abscess cavity to facilitate packing and drainage. A large amount of purulence did express with this maneuver and an additional culture probe was placed into the purulent material and sent for culture. The abscess cavity was then packed with 4 x 4 gauze and covered with additional 4x4s with some pressure dressing overlying. Electrocautery was used for the purpose of hemostasis within the cavity and additional bupivacaine was injected around the incision site. The site was covered with an ABD and mesh panties. The patient tolerated the procedure well and went in good condition to the postoperative care unit. Complications: none Post-operative Condition: stable
[2023-05-16] MEDS: AMITRIPTYLINE 25 MG TABLET PO (21:10)
[2023-05-17] MEDS: INSULIN LISPRO 100 UNIT/ML 3ML VIAL SUBCUT ×4 (01:30→18:19)
[2023-05-17 02:55] VITALS: BP 143/63; PULSE 114; RESP 20; TEMP 36.8; O2SAT 99
[2023-05-17] MEDS: VANCOMYCIN 1,250 MG/250 ML PIGGYBACK 250 MG IV ×2 (03:56→12:17)
--- NOTE | 2023-05-17 04:12 | PC.NURSE ---
Patient returned to AC unit from PACU at 20:40. Alert and oriented, denies pain. Pleasant and cooperative with care. ABD pad covering post op wound with light red scant drainage. BS 178/ 203. Bed in low position, call light within reach. Spouse at bedside upon arrival to unit.
[2023-05-17 08:15] VITALS: BP 142/63; PULSE 116; RESP 17; TEMP 36.6; O2SAT 98
[2023-05-17] MEDS: PARoxetine 20 MG TABLET 60 MG PO (08:26)
[2023-05-17] MEDS: buPROPion SR 100 MG TAB PO (08:27)
[2023-05-17] MEDS: AMLODIPINE 5 MG TABLET PO (08:27)
[2023-05-17] MEDS: PROPRANOLOL 10 MG TABLET 80 MG PO (08:27)
[2023-05-17 08:41] LABS: Add Manual Diff / Slide Review NO; Basophils Absolute Auto 100 /uL (0-100); Basophils Percent Auto 0.5 % (0-2); Eosinophils Absolute Auto 300 /uL (0-450); Eosinophils Percent Auto 2.2 % (2-4); Hematocrit 35.1 % (36-46); Hemoglobin 11.6 g/dL (12.0-16.0); Lymphocytes Absolute Auto 1700 /uL (1100-4500); Lymphocytes Percent Auto 11.6 % (25-40); Mean Corpuscular Hemoglobin 26.7 PG (26-34); Mean Corpuscular Volume 80.7 fL (80-100); Monocytes Absolute Auto 900 /uL (0-900); Monocytes Percent Auto 5.9 % (3-14); Neutrophils Absolute Auto 11500 /uL (1500-7000); Neutrophils Percent Auto 79.8 % (50-75); Platelet Count 283 X10^3/uL (150-400); Red Blood Cell Count 4.34 X10^6/uL (4.0-5.2); Red Cell Distribution Width 13.6 % (11.6-14.8); White Blood Cell Count 14.4 X10^3/uL (4.5-11.0)
[2023-05-17 08:52] LABS: BUN Creatinine Ratio 9.3 (6-22); Blood Urea Nitrogen 4 mg/dL (7-17); Calcium 8.2 mg/dL (8.4-10.2); Carbon Dioxide 14 mmol/L (22-32); Chloride 106 mmol/L (98-107); Estimated Glomerular Filt Rate > 60 mL/min (>60); Glucose 206 mg/dL (70-100); HEMOLYSIS < 15 (0-50); Potassium 3.7 mmol/L (3.4-5.1); Sodium 135 mmol/L (137-145)
[2023-05-17] MEDS: VANCOMYCIN TROUGH 1 REQUEST MISC (12:17)
[2023-05-17 12:23] LABS: Vancomycin Trough 8.8 ug/mL (10-20)
[2023-05-17 14:34] VITALS: BP 124/54; PULSE 82; RESP 19; TEMP 36.3; O2SAT 99
--- NOTE | 2023-05-17 14:57 | PM.PN.1 ---
Subjective Subjective Interval history: 47 yo female with HTN, HLD, IDDM admitted due to right gluteal cellulitis/abscess. pod # 1 rt gluteal abscess I & D. Pt notes pain much better since drainage of abscess. Exam Vital Signs (past 8 hours): - 05/17/23 08:15 05/17/23 14:34 Temperature 97.8 F 97.3 F L Pulse Rate 116 H 82 Respiratory Rate 17 19 Blood Pressure 142/63 H 124/54 L Pulse Oximetry 98 99 Oxygen Flow Rate 0 0 Oxygen Delivery Method Room Air Oxygen Flow Rate 0 Narrative Exam Narrative: Gen: alert, cooperative, NAD Ext: no edema Objective Labs 05/17/23 08:30 05/17/23 08:30 Labs: Laboratory Results - last 24 hr 05/17/23 05/17/23 05/17/23 08:30 08:30 11:38 WBC 14.4 H RBC 4.34 Hgb 11.6 L Hct 35.1 L MCV 80.7 MCH 26.7 MCHC 33.0 RDW 13.6 Plt Count 283 Neut % (Auto) 79.8 H Lymph % (Auto) 11.[address] [place] [place] % (Auto) 5.9 Eos % (Auto) 2.2 Baso % (Auto) 0.5 Neut # (Auto) 61414 H Lymph # (Auto) [address] [place] # (Auto) 900 Eos # (Auto) 300 Baso # (Auto) 100 Sodium 135 L Potassium 3.7 Chloride 106 Carbon Dioxide 14 L BUN 4 L Creatinine 0.43 L Estimated GFR > 60 BUN/Creatinine Ratio 9.3 Glucose 206 H Calcium 8.2 L Vancomycin Trough 8.8 L PFSH Medical History (Updated 05/16/23 @ 18:00 by Mone Young MD) Anxiety Bilateral hip pain COVID-19 virus infection (11/01/20) Dysmenorrhea Eczema Fatigue Gastroenteritis GERD (gastroesophageal reflux disease) HTN (hypertension) Hyperlipidemia Hyperlipidemia Insomnia Migraines Neuropathy OCD (obsessive compulsive disorder) Onychomycosis SHIVANI on CPAP Osteopenia Peripheral neuropathy Pneumonia (~10/2018) Recurrent sinusitis Recurrent UTI Type 2 diabetes mellitus Type 2 diabetes mellitus Unilateral congenital absence of kidney Surgical History History of esophagogastroduodenoscopy (EGD) History of orthopedic surgery (12/14/21) History of surgery (04/28/20) History of surgery (11/27/18) Hx laparoscopic cholecystectomy Hx of fasciotomy (01/30/18) Hx of reduction mammoplasty Family History Father Hypertension Mother Osteoporosis Social History household members: spouse Smoking Status: Never smoker alcohol intake: current Assessment & Plan Assessment & Plan narrative: 1. Right gluteal cellulitis/abscess -s/p I & D on 05/[address] Young -f/u surgical cultures -cont Vanc and ceftriaxone -Tylenol, ibu, oxy prn 2. IDDM -cont lantus -s/s insulin -resume pregabalin 3. HTN, HLD -cont amlodipine, propranolol, atorvastatin 4. OCD -cont amitriptyline, bupropion, paroxetine 5. Migraines -cont propranolol, sumatriptan prn 6. GERD -cont PPI Quality VTE Deep Vein Thrombosis/Pulmonary Embolism Present on Admission: No
--- NOTE | 2023-05-17 15:23 | P.PN_ITS ---
Subjective Subjective Date Patient Seen: 05/17/23 Time Patient Seen: 14:00 Interval history: Patient is doing well today she denies significant amount of pain. The dressing did come out with a bowel movement overnight and the bedside RN was able to repack and dress the area. The patient is getting ready to take a shower and is ambulatory. She feels like she is ready to go home. Exam Vital Signs (past 8 hours): - 05/17/23 08:15 05/17/23 14:34 Temperature 97.8 F 97.3 F L Pulse Rate 116 H 82 Respiratory Rate 17 19 Blood Pressure 142/63 H 124/54 L Pulse Oximetry 98 99 Oxygen Flow Rate 0 0 Oxygen Delivery Method Room Air Oxygen Flow Rate 0 Narrative Exam Narrative: She is awake alert oriented obese but pleasant The wound in her perineal area is open approximately 5 cm x 3 cm x 3 cm in depth the cavity is draining and there is no purulence. Cellulitic area surrounding the purulent area is less indurated today than yesterday and the erythema is more consolidated. Objective Labs 05/17/23 08:30 05/17/23 08:30 Labs: Laboratory Results - last 24 hr 05/17/23 05/17/23 05/17/23 08:30 08:30 11:38 WBC 14.4 H RBC 4.34 Hgb 11.6 L Hct 35.1 L MCV 80.7 MCH 26.7 MCHC 33.0 RDW 13.6 Plt Count 283 Neut % (Auto) 79.8 H Lymph % (Auto) 11.6 L [place] % (Auto) 5.9 Eos % (Auto) 2.2 Baso % (Auto) 0.5 Neut # (Auto) 52270 H Lymph # (Auto) 1700 [place] # (Auto) 900 Eos # (Auto) 300 Baso # (Auto) 100 Sodium 135 L Potassium 3.7 Chloride 106 Carbon Dioxide 14 L BUN 4 L Creatinine 0.43 L Estimated GFR > 60 BUN/Creatinine Ratio 9.3 Glucose 206 H Calcium 8.2 L Vancomycin Trough 8.8 L PFSH Medical History (Updated 05/16/23 @ 18:00 by Mone Young MD) Anxiety Bilateral hip pain COVID-19 virus infection (11/01/20) Dysmenorrhea Eczema Fatigue Gastroenteritis GERD (gastroesophageal reflux disease) HTN (hypertension) Hyperlipidemia Hyperlipidemia Insomnia Migraines Neuropathy OCD (obsessive compulsive disorder) Onychomycosis SHIVANI on CPAP Osteopenia Peripheral neuropathy Pneumonia (~10/2018) Recurrent sinusitis Recurrent UTI Type 2 diabetes mellitus Type 2 diabetes mellitus Unilateral congenital absence of kidney Surgical History History of esophagogastroduodenoscopy (EGD) History of orthopedic surgery (12/14/21) History of surgery (04/28/20) History of surgery (11/27/18) Hx laparoscopic cholecystectomy Hx of fasciotomy (01/30/18) Hx of reduction mammoplasty Family History Father Hypertension Mother Osteoporosis Social History household members: spouse Smoking Status: Never smoker alcohol intake: current Assessment & Plan Assessment and plan (1) Perirectal abscess: Status: Acute Assessment & Plan narrative: Status post drainage. There was good cultures taken in the operating room and currently the patient is on Zosyn and vancomycin. The only barrier to discharge would be a tailoring the antibiotic to the cultures. Otherwise from a surgical perspective she may be discharged with wound care education and she can follow- up as needed in my clinic or in 7-10 days for wound check. I discussed all of this with patient and her at the bedside who is very helpful and eager to assist with dressing changes. Quality VTE Deep Vein Thrombosis/Pulmonary Embolism Present on Admission: No
[2023-05-17] MEDS: VANCOMYCIN 1,500 MG/300 ML PIGGYBACK 150 MG IV (18:18)
[2023-05-17 19:55] VITALS: BP 126/69; PULSE 93; RESP 18; TEMP 36.1; O2SAT 98
[2023-05-17] MEDS: AMITRIPTYLINE 25 MG TABLET PO (20:13)
[2023-05-17] MEDS: PREGABALIN 50 MG CAPSULE 150 MG PO (20:15)
[2023-05-17] MEDS: LOPERAMIDE 2 MG CAPSULE PO (20:15)
[2023-05-17] MEDS: cefTRIAXone 2,000 MG in SODIUM CHLORIDE 0.9% 100 ML 200 MG IV (20:19)
[2023-05-18] MEDS: INSULIN LISPRO 100 UNIT/ML 3ML VIAL SUBCUT ×3 (02:35→12:06)
[2023-05-18 03:04] LABS: Vancomycin Trough 11.4 ug/mL (10-20)
[2023-05-18] MEDS: VANCOMYCIN 1,500 MG/300 ML PIGGYBACK 150 MG IV (03:19)
[2023-05-18] MEDS: VANCOMYCIN TROUGH 1 REQUEST MISC (04:04)
[2023-05-18 06:20] VITALS: BP 128/74; PULSE 89; RESP 18; TEMP 35.9; O2SAT 98
--- NOTE | 2023-05-18 07:36 | P.PN_ITS ---
Subjective Subjective Date Patient Seen: 05/18/23 Exam Vital Signs (past 8 hours): - 05/18/23 06:20 Temperature 96.7 F L Pulse Rate 89 Respiratory Rate 18 Blood Pressure 128/74 Pulse Oximetry 98 Oxygen Flow Rate 0 Oxygen Delivery Method Room Air Oxygen Flow Rate 0 Objective Labs 05/17/23 08:30 05/17/23 08:30 Labs: Laboratory Results - last 24 hr 05/17/23 05/17/23 05/17/23 08:30 08:30 11:38 WBC 14.4 H RBC 4.34 Hgb 11.6 L Hct 35.1 L MCV 80.7 MCH 26.7 MCHC 33.0 RDW 13.6 Plt Count 283 Neut % (Auto) 79.8 H Lymph % (Auto) 11.6 L [place] % (Auto) 5.9 Eos % (Auto) 2.2 Baso % (Auto) 0.5 Neut # (Auto) 80804 H Lymph # (Auto) 1700 [place] # (Auto) 900 Eos # (Auto) 300 Baso # (Auto) 100 Sodium 135 L Potassium 3.7 Chloride 106 Carbon Dioxide 14 L BUN 4 L Creatinine 0.43 L Estimated GFR > 60 BUN/Creatinine Ratio 9.3 Glucose 206 H Calcium 8.2 L Vancomycin Trough 8.8 L 05/18/23 02:35 WBC RBC Hgb Hct MCV MCH MCHC RDW Plt Count Neut % (Auto) Lymph % (Auto) [place] % (Auto) Eos % (Auto) Baso % (Auto) Neut # (Auto) Lymph # (Auto) [place] # (Auto) Eos # (Auto) Baso # (Auto) Sodium Potassium Chloride Carbon Dioxide BUN Creatinine Estimated GFR BUN/Creatinine Ratio Glucose Calcium Vancomycin Trough 11.4 PFSH Medical History (Updated 05/16/23 @ 18:00 by Mone Young MD) Anxiety Bilateral hip pain COVID-19 virus infection (11/01/20) Dysmenorrhea Eczema Fatigue Gastroenteritis GERD (gastroesophageal reflux disease) HTN (hypertension) Hyperlipidemia Hyperlipidemia Insomnia Migraines Neuropathy OCD (obsessive compulsive disorder) Onychomycosis SHIVANI on CPAP Osteopenia Peripheral neuropathy Pneumonia (~10/2018) Recurrent sinusitis Recurrent UTI Type 2 diabetes mellitus Type 2 diabetes mellitus Unilateral congenital absence of kidney Surgical History History of esophagogastroduodenoscopy (EGD) History of orthopedic surgery (12/14/21) History of surgery (04/28/20) History of surgery (11/27/18) Hx laparoscopic cholecystectomy Hx of fasciotomy (01/30/18) Hx of reduction mammoplasty Family History Father Hypertension Mother Osteoporosis Social History household members: spouse Smoking Status: Never smoker alcohol intake: current Assessment & Plan Assessment & Plan narrative: 1. Right gluteal cellulitis/abscess -s/p I & D on 05/[address] Young -f/u surgical cultures -cont Vanc and ceftriaxone -Tylenol, ibu, oxy prn 2. IDDM -cont lantus -s/s insulin -resume pregabalin 3. HTN, HLD -cont amlodipine, propranolol, atorvastatin 4. OCD -cont amitriptyline, bupropion, paroxetine 5. Migraines -cont propranolol, sumatriptan prn 6. GERD -cont PPI Quality VTE Deep Vein Thrombosis/Pulmonary Embolism Present on Admission: No
[2023-05-18 08:00] VITALS: BP 153/65; PULSE 84; RESP 17; TEMP 36.6; O2SAT 100
[2023-05-18] MEDS: PARoxetine 20 MG TABLET 60 MG PO (09:48)
[2023-05-18] MEDS: AMLODIPINE 5 MG TABLET PO (09:49)
[2023-05-18] MEDS: PROPRANOLOL 10 MG TABLET 80 MG PO (09:49)
[2023-05-18] MEDS: PREGABALIN 50 MG CAPSULE 100 MG PO (09:49)
[2023-05-18] MEDS: buPROPion SR 100 MG TAB PO (09:49)
--- NOTE | 2023-05-18 12:37 | PM.PN.1 ---
Subjective Subjective Date Patient Seen: 05/18/23 Interval history: Unable to interview patient as she is sleeping. Per RN at bedside no overnight events. Patient expressed yesterday that she would like to be discharged as soon as possible Exam Vital Signs (past 8 hours): - 05/18/23 06:20 05/18/23 08:00 Temperature 96.7 F L 97.8 F Pulse Rate 89 84 Respiratory Rate 18 17 Blood Pressure 128/74 153/65 H Pulse Oximetry 98 100 Oxygen Flow Rate 0 0 Oxygen Delivery Method Room Air Oxygen Flow Rate 0 Narrative Exam Narrative: Patient is sleeping peacefully in bed. The wound was advanced examined yesterday and looked fine Objective Labs 05/17/23 08:30 05/17/23 08:30 Labs: Laboratory Results - last 24 hr 05/18/23 02:35 Vancomycin Trough 11.4 PFSH Medical History (Updated 05/16/23 @ 18:00 by Mone Young MD) Anxiety Bilateral hip pain COVID-19 virus infection (11/01/20) Dysmenorrhea Eczema Fatigue Gastroenteritis GERD (gastroesophageal reflux disease) HTN (hypertension) Hyperlipidemia Hyperlipidemia Insomnia Migraines Neuropathy OCD (obsessive compulsive disorder) Onychomycosis SHIVANI on CPAP Osteopenia Peripheral neuropathy Pneumonia (~10/2018) Recurrent sinusitis Recurrent UTI Type 2 diabetes mellitus Type 2 diabetes mellitus Unilateral congenital absence of kidney Surgical History History of esophagogastroduodenoscopy (EGD) History of orthopedic surgery (12/14/21) History of surgery (04/28/20) History of surgery (11/27/18) Hx laparoscopic cholecystectomy Hx of fasciotomy (01/30/18) Hx of reduction mammoplasty Family History Father Hypertension Mother Osteoporosis Social History household members: spouse Smoking Status: Never smoker alcohol intake: current Assessment & Plan Assessment and plan (1) Perirectal abscess: Status: Acute Assessment & Plan narrative: I called the micro lab this morning and they worked on placing a preliminary result in the computer which is available as of when I am writing this note. It is beta-hemolytic strep which is interestingly something that had been cultured from her urine about a month prior. It is sensitive and I think that she could be discharged home with a course of oral antibiotics that cover beta hemolytic strep. She can follow up for wound check in my office in 5-7 days and call my office as needed with any questions or concerns. RN will teach wound care please contact me as needed with any questions or concerns. Quality VTE Deep Vein Thrombosis/Pulmonary Embolism Present on Admission: No
--- NOTE | 2023-05-18 13:11 | PM.DS.1 ---
History of Present Illness History of Present Illness Date Patient Seen: 05/18/23 Chief complaint: Abscess Narrative: 47-year-old female history of diabetes hypertension hyperlipidemia, GERD presenting today with abscess on right groin area.? sHe reports it has been there for at least 1 week. The last couple of days it has gotten significantly worse and more painful.? She was evaluated here 2 days ago after being seen by dermatology who sent to the ED for evaluation.? She was placed on doxycycline and clindamycin she has has not helped.? She is now having increasing pain.? She reports that the pain is quite intense now.? She is had some body aches she really has not felt well.? She does not check her glucose regularly she is not supposed to she is not sure what it is.? She that denies any nausea or vomiting.? She was started on doxycycline with 3 doses taken, but feels like it has grown and intensified. Discharge Providers Provider Date of admission: 05/16/23 03:39 Discharge Date: 05/18/23 Primary care physician: Brayan Vila DO Consults: 05/16/23 07:26 Consult to Physician Routine Comment: Consulting Provider: Ant Hendrickson Reason for consultation: gluteal abscess Has provider been notified: Yes Discharge provider: Derick Gonzalez MD Summary Hospital Course Hospital Course: 1. Right gluteal cellulitis/abscess -s/p I & D on 05/[address] Young She was treated with vancomycin and with ceftriaxone. The wound culture grew ?group B strep. ? She will go home on 5 additional days of cephalexin. She has a penicillin allergy. She will follow-up with general surgery in 5-7 days. 2. IDDM -cont lantus -s/s insulin -resume pregabalin 3. HTN, HLD -cont amlodipine, propranolol, atorvastatin 4. OCD -cont amitriptyline, bupropion, paroxetine 5. Migraines -cont propranolol, sumatriptan prn 6. GERD -cont PPI Status at Discharge Cognitive/behavioral status at discharge: oriented Functional status at discharge: independent ambulation Overall status at discharge: patient is progressing back to baseline Exam Vital Signs (past 8 hours): - 05/18/23 06:20 05/18/23 08:00 05/18/23 09:15 Temperature 96.7 F L 97.8 F Pulse Rate 89 84 Respiratory Rate 18 17 Blood Pressure 128/74 153/65 H Pulse Oximetry 98 100 Oxygen Delivery Method Room Air Oxygen Flow Rate 0 0 Oxygen Delivery Method Room Air Oxygen Flow Rate 0 Narrative Exam Narrative: She is up and moving around in her bed. Her is at bedside and supportive. Heart is regular rate and rhythm without murmur Lungs are clear to auscultation bilaterally Ankle Have no edema There is a clean dressing on the right buttock crease incision site. Objective Labs 05/17/23 08:30 05/17/23 08:30 Labs: Laboratory Results - last 24 hr 05/18/23 02:35 Vancomycin Trough 11.4 PFSH Medical History (Updated 05/16/23 @ 18:00 by Mone Young MD) Anxiety Bilateral hip pain COVID-19 virus infection (11/01/20) Dysmenorrhea Eczema Fatigue Gastroenteritis GERD (gastroesophageal reflux disease) HTN (hypertension) Hyperlipidemia Hyperlipidemia Insomnia Migraines Neuropathy OCD (obsessive compulsive disorder) Onychomycosis SHIVANI on CPAP Osteopenia Peripheral neuropathy Pneumonia (~10/2018) Recurrent sinusitis Recurrent UTI Type 2 diabetes mellitus Type 2 diabetes mellitus Unilateral congenital absence of kidney Surgical History History of esophagogastroduodenoscopy (EGD) History of orthopedic surgery (12/14/21) History of surgery (04/28/20) History of surgery (11/27/18) Hx laparoscopic cholecystectomy Hx of fasciotomy (01/30/18) Hx of reduction mammoplasty Family History Father Hypertension Mother Osteoporosis Social History household members: spouse Smoking Status: Never smoker alcohol intake: current Discharge Plan Discharge Plan Patient Disposition: Home Provider Discharge Comment: Follow up with Dr. Young in 5-7 days Discharge orders & Medications Prescriptions: New propranolol 10 mg Tablet 80 mg PO DAILY Qty: 30 0RF paroxetine HCl 20 mg Tablet 60 mg PO DAILY Qty: 90 0RF oxycodone 5 mg Tablet 5 mg PO Q3H PRN (Reason: Pain, Moderate (4-6)) Qty: 10 0RF cephalexin 500 mg capsule 500 mg PO TID Qty: 30 0RF Continued paroxetine HCl 30 mg tablet See Rx Instructions .ROUTE .COMPLEX Qty: 180 3RF Dose Instruction: TAKE TWO TABLETS BY MOUTH ONCE DAILY Rx Instructions: TAKE TWO TABLETS BY MOUTH ONCE DAILY pregabalin [Lyrica] 50 mg capsule See Rx Instructions PO .COMPLEX Qty: 150 1RF Rx Instructions: Take 2 capsules in the morning and 3 capsules at night levonorgestrel-ethinyl estrad [Falmina (28)] 0.1-20 mg-mcg tablet See Rx Instructions .ROUTE .COMPLEX Qty: 84 3RF Dose Instruction: TAKE ONE TABLET BY MOUTH ONE TIME DAILY Rx Instructions: TAKE ONE TABLET BY MOUTH ONE TIME DAILY amitriptyline 100 mg tablet See Rx Instructions .ROUTE .COMPLEX Qty: 90 3RF Dose Instruction: TAKE ONE TABLET BY MOUTH NIGHTLY AT BEDTIME Rx Instructions: TAKE ONE TABLET BY MOUTH NIGHTLY AT BEDTIME amlodipine 5 mg tablet 5 mg PO DAILY Qty: 90 3RF atorvastatin 10 mg tablet See Rx Instructions .ROUTE .COMPLEX Qty: 90 3RF Dose Instruction: TAKE ONE TABLET BY MOUTH NIGHTLY AT BEDTIME Rx Instructions: TAKE ONE TABLET BY MOUTH NIGHTLY AT BEDTIME bupropion HCl 100 mg tablet sustained-release 12 hr See Rx Instructions .ROUTE .COMPLEX Qty: 90 3RF Dose Instruction: TAKE ONE TABLET BY MOUTH ONE TIME DAILY Rx Instructions: TAKE ONE TABLET BY MOUTH ONE TIME DAILY pantoprazole 40 mg tablet,delayed release (DR/EC) See Rx Instructions .ROUTE .COMPLEX Qty: 90 3RF Dose Instruction: TAKE ONE TABLET BY MOUTH ONE TIME DAILY Rx Instructions: TAKE ONE TABLET BY MOUTH ONE TIME DAILY propranolol 80 mg tablet 80 mg PO DAILY Qty: 90 3RF sumatriptan succinate 100 mg tablet See Rx Instructions PO .COMPLEX Qty: 60 0RF Rx Instructions: take 1 tab at onset of headache; if no relief, may repeat 1 tab after at least 2 hrs; max = 2 tabs/24 hrs PO insulin glargine [Lantus Solostar U-100 Insulin] 100 unit/mL (3 mL) insulin pen 10 unit SUBCUT QPM Qty: 15 2RF Patient Comments: Hasn't taken for a couple weeks Rx Instructions: 10 units before bedtime insulin aspart U-100 [Novolog FlexPen U-100 Insulin] 100 unit/mL (3 mL) insulin pen 5 unit SUBCUT QACDINNER Qty: 15 2RF Patient Comments: Hasn't taken for a couple weeks Rx Instructions: Start ONE WEEK after Lantus pen. 5 units before dinner, once daily ibuprofen 800 mg tablet 800 mg PO Q8H PRN (Reason: pain) Qty: 20 0RF doxycycline monohydrate 100 mg capsule 100 mg PO BID Qty: 20 0RF Follow up/Referrals: Mone Young MD [Physician] - (Follow up in 7-10 days for a wound check.) Brayan Vila DO [Primary Care Provider] - Skin/Wound/Dressing Care Dressing: I recommend Sitz baths 3 times daily and filling with dry or moist gauze and covering with dry gauze. Visit Report/Discharge Packet Stand Alone Forms: Patient Portal/API, Stroke Signs & Symptoms Discharge Data Primary Care Provider: Brayan Vila Quality VTE Deep Vein Thrombosis/Pulmonary Embolism Present on Admission: No
--- NOTE | 2023-05-18 14:17 | PC.NURSE ---
Pt discharged home at 1415, escorted off floor in wheelchair, accompanied by spouse and hospital staff. IV removed, discharge teaching completed including new meds, wound care and follow up appointments. Questions answered and concerns addressed. Patient left the floor with all belongings.
== END 2023-05-18 14:20 | disposition home or self-care (01) | DRG 854 ==
LOC: ED 21:39 → AC 05-16 03:55
PROVIDERS: Internal Medicine; Surgery; Admitting Provider Internal Medicine; Emergency Provider Emergency Medicine; PCP Family Medicine; Referring Provider Surgery; Visit Provider Internal Medicine
PROC: 0D9P0ZX Drainage of Rectum, Open Approach, Diagnostic (ICD-10-PCS; principal; 2023-05-16 17:15)
DX: A41.9 Sepsis, unspecified organism (principal); K61.1 Rectal abscess; L03.317 Cellulitis of buttock; E78.2 Mixed hyperlipidemia; I10 Essential (primary) hypertension; E11.9 Type 2 diabetes mellitus without complications; K21.9 Gastro-esophageal reflux disease without esophagitis; F42.9 Obsessive-compulsive disorder, unspecified; G43.909 Migraine, unspecified, not intractable, without status migrainosus; B95.1 Streptococcus, group B, as the cause of diseases classified elsewhere; Z79.4 Long term (current) use of insulin
CPT/HCPCS: 10060; 36415; 72193; 80048; 80053; 80202; 82962; 83605; 84145; 85025; 87040; 87070; 87075; 87147; 87205; 96365; 96366; 96367; 96375; 99232; 99284; 99285; C9290; J0696; J1170; J1815; J1885; J2270; J3010; J3030; Q9967

== ENCOUNTER → 2023-08-22 08:54 | Outpatient (CLI) | payer OTHER, SELFPAY ==
[2023-06-04 13:50] VITALS: BMI 34.0
--- NOTE | 2023-08-22 08:55 | DI.MG.S_ITS ---
BILATERAL DIGITAL SCREENING MAMMOGRAM 3D/2D WITH CAD: 08/22/2023 CLINICAL: Routine screening. Comparison: 10/08/18 There are scattered areas of fibroglandular density in both breasts (category b / 25%-50% glandular tissue). Current study was also evaluated with a Computer Aided Detection (CAD) system. No significant masses, calcifications, or other findings are seen in either breast. Hyperdense bilateral axillary lymph nodes are present, nonenlarged, slightly increased from 2018. IMPRESSION: BENIGN There is no mammographic evidence of malignancy. A 1 year screening mammogram is recommended. Hyperdense bilateral axillary lymph nodes are present, nonenlarged, slightly increased from 2018. Based on the Tyrer Cuzick model (a risk assessment model) the patient's lifetime risk is 9.7% and her 10 year risk is 2.1%. According to the ACR, ACS, and NCCN guidelines, an annual breast MRI exam along with mammogram is recommended if the patient's lifetime risk is 20% or greater. This exam was interpreted at Station ID: [id number]. NOTE: For mammograms, a report in lay terms will be sent to the patient. Approximately 15% of breast malignancies will not be visualized mammographically. In the management of a palpable breast mass, a negative mammogram must not discourage biopsy of a clinically suspicious lesion. Electronically Signed By: Romie Clarke M.D. lc/:08/25/2023 14:48:36 letter sent: Normal Exam ACR BI-RADS Category 2: Benign Finding(s) [id number]
== END ==
PROVIDERS: PCP Family Medicine; Referring Provider Family Medicine; Visit Provider Family Medicine
DX: Z12.31 Encounter for screening mammogram for malignant neoplasm of breast (principal)
CPT/HCPCS: 77063; 77067

== ENCOUNTER → 2023-10-31 09:20 | Outpatient (CLI) | payer OTHER, SELFPAY ==
[2023-06-04 13:50] VITALS: BMI 34.0
[2023-10-31 10:20] LABS: Add Manual Diff / Slide Review NO; Basophils Absolute Auto 0 /uL (0-100); Basophils Percent Auto 0.4 % (0-2); Eosinophils Absolute Auto 300 /uL (0-450); Eosinophils Percent Auto 2.8 % (2-4); Hematocrit 43.7 % (36-46); Hemoglobin 14.9 g/dL (12.0-16.0); Lymphocytes Absolute Auto 2500 /uL (1100-4500); Lymphocytes Percent Auto 26.8 % (25-40); Mean Corpuscular HGB Conc 34.1 % (30-36); Mean Corpuscular Hemoglobin 27.2 PG (26-34); Mean Corpuscular Volume 79.7 fL (80-100); Monocytes Absolute Auto 500 /uL (0-900); Neutrophils Absolute Auto 6100 /uL (1500-7000); Platelet Count 274 X10^3/uL (150-400); Red Blood Cell Count 5.48 X10^6/uL (4.0-5.2); Red Cell Distribution Width 13.7 % (11.6-14.8); White Blood Cell Count 9.3 X10^3/uL (4.5-11.0)
[2023-10-31 10:31] LABS: HEMOLYSIS < 15 (0-50); Iron 87 ug/dL (37-170)
[2023-10-31 10:34] LABS: Cholesterol 229 mg/dL (140-199); HDL Cholesterol 41 mg/dL (40-60)
[2023-10-31 10:43] LABS: Percent Iron Saturation 21 % (15-50); Total Iron Binding Capacity 408 ug/dL (265-497); Transferrin 369 mg/dL (206-381)
[2023-10-31 11:02] LABS: Triglycerides 613 mg/dL (35-150)
[2023-10-31 11:08] LABS: Ferritin 21 ng/mL (11-264)
[2023-10-31 11:22] LABS: HIV 1 & 2 Ab/Ag 4th Gen Combo NEGATIVE (NEGATIVE); Hep C Virus Ab w/Reflex Quant NEGATIVE s/c (NEGATIVE)
[2023-10-31 11:24] LABS: Vitamin B12 323 pg/mL (239-931)
== END ==
PROVIDERS: PCP Family Medicine; Referring Provider Family Medicine; Visit Provider Family Medicine
DX: Z11.3 Encounter for screening for infections with a predominantly sexual mode of transmission (principal); E78.5 Hyperlipidemia, unspecified; N94.6 Dysmenorrhea, unspecified; D64.9 Anemia, unspecified; I10 Essential (primary) hypertension
CPT/HCPCS: 36415; 80061; 82607; 82728; 83540; 83550; 85025; 86803; 87389

== ENCOUNTER → 2023-11-11 10:27 | Outpatient (CLI) | payer OTHER, SELFPAY ==
[2023-06-04 13:50] VITALS: BMI 34.0
== END ==
LOC: WC 10:47
PROVIDERS: PCP Family Medicine; Referring Provider Family Medicine; Visit Provider Surgery
DX: E11.621 Type 2 diabetes mellitus with foot ulcer (principal); E11.42 Type 2 diabetes mellitus with diabetic polyneuropathy; L97.512 Non-pressure chronic ulcer of other part of right foot with fat layer exposed; L97.522 Non-pressure chronic ulcer of other part of left foot with fat layer exposed; L84 Corns and callosities; I10 Essential (primary) hypertension; Z79.4 Long term (current) use of insulin; Z91.148 Patient's other noncompliance with medication regimen for other reason
CPT/HCPCS: 11042; 99204; 99214

== ENCOUNTER → 2023-11-20 09:28 | Outpatient (CLI) | payer OTHER, SELFPAY ==
[2023-06-04 13:50] VITALS: BMI 34.0
--- NOTE | 2023-11-20 09:29 | DI.RAD.S_ITS ---
PROCEDURE: XR FOOT RT MIN 3V INDICATIONS: wound to r hallux TECHNIQUE: 3 views of the foot were acquired. COMPARISON: None. FINDINGS: Bones: No acute fractures or dislocations. No suspicious bony lesions. Small posterior and plantar calcaneal enthesophytes. No focal osseous erosion or cortical destruction is seen. Soft tissues: Nonspecific soft tissue edema is seen in the medial midfoot. IMPRESSION: Nonspecific soft tissue edema. No radiographic signs of osteomyelitis. Approved by: Kojo Marshall M.D. on 11/20/2023 at 11:45
--- NOTE | 2023-11-20 09:29 | DI.RAD.S_ITS ---
PROCEDURE: XR FOOT LT MIN 3V INDICATIONS: eval for osteo, wound left 4th toe TECHNIQUE: 3 views of the foot were acquired. COMPARISON: None. FINDINGS: Bones: No acute fractures or dislocations. No suspicious bony lesions. No focal osseous erosion is seen. Evaluation of the distal portions of the toes is mildly compromised due to flexion resulting in overlapping osseous structures. Moderate plantar calcaneal enthesophyte. Maria Elena deformity is noted at the posterior calcaneus. Soft tissues: Soft tissue edema is seen in the 4th toe. Achilles tendon stripe appears thickened distally. IMPRESSION: Nonspecific soft tissue edema. No definite radiographic signs of osteomyelitis. If there is continued clinical concern, MRI could be performed for further evaluation. Approved by: Kojo Marshall M.D. on 11/20/2023 at 11:56
== END ==
PROVIDERS: PCP Family Medicine; Referring Provider Surgery; Visit Provider Surgery
DX: E11.621 Type 2 diabetes mellitus with foot ulcer (principal); L97.519 Non-pressure chronic ulcer of other part of right foot with unspecified severity; L97.529 Non-pressure chronic ulcer of other part of left foot with unspecified severity
CPT/HCPCS: 73630

== ENCOUNTER → 2023-11-21 08:57 | Outpatient (CLI) | payer OTHER, SELFPAY ==
[2023-06-04 13:50] VITALS: BMI 34.0
== END ==
PROVIDERS: PCP Family Medicine; Referring Provider Family Medicine; Visit Provider Physician Assistant
DX: E11.621 Type 2 diabetes mellitus with foot ulcer (principal); E11.42 Type 2 diabetes mellitus with diabetic polyneuropathy; L97.512 Non-pressure chronic ulcer of other part of right foot with fat layer exposed; L97.522 Non-pressure chronic ulcer of other part of left foot with fat layer exposed; L84 Corns and callosities; I10 Essential (primary) hypertension
CPT/HCPCS: 11042; 99213

== ENCOUNTER → 2023-12-05 09:44 | Outpatient (CLI) | payer OTHER, SELFPAY ==
[2023-06-04 13:50] VITALS: BMI 34.0
== END ==
PROVIDERS: PCP Family Medicine; Referring Provider Family Medicine; Visit Provider Surgery
DX: E11.621 Type 2 diabetes mellitus with foot ulcer (principal); E11.42 Type 2 diabetes mellitus with diabetic polyneuropathy; L97.522 Non-pressure chronic ulcer of other part of left foot with fat layer exposed; I10 Essential (primary) hypertension; Z91.128 Patient's intentional underdosing of medication regimen for other reason
CPT/HCPCS: 97597; 99213

== ENCOUNTER → 2023-12-05 10:01 | Outpatient (CLI) | payer OTHER, SELFPAY ==
[2023-06-04 13:50] VITALS: BMI 34.0
[2023-12-05 11:44] LABS: Hemoglobin A1C% w Est Avg Glu 13.9 % (4.0-6.0)
== END ==
PROVIDERS: PCP Family Medicine; Referring Provider Surgery; Visit Provider Surgery
DX: E11.9 Type 2 diabetes mellitus without complications (principal); E11.621 Type 2 diabetes mellitus with foot ulcer; E11.42 Type 2 diabetes mellitus with diabetic polyneuropathy; L97.522 Non-pressure chronic ulcer of other part of left foot with fat layer exposed; I10 Essential (primary) hypertension; Z91.128 Patient's intentional underdosing of medication regimen for other reason
CPT/HCPCS: 36415; 83036; 97597

== ENCOUNTER → 2023-12-12 10:05 | Outpatient (CLI) | payer OTHER, SELFPAY ==
[2023-06-04 13:50] VITALS: BMI 34.0
== END ==
LOC: WC 10:05
PROVIDERS: PCP Family Medicine; Referring Provider Family Medicine; Visit Provider Physician Assistant
DX: E11.621 Type 2 diabetes mellitus with foot ulcer (principal); E11.42 Type 2 diabetes mellitus with diabetic polyneuropathy; L97.522 Non-pressure chronic ulcer of other part of left foot with fat layer exposed; I10 Essential (primary) hypertension
CPT/HCPCS: 11042; 99213

== ENCOUNTER → 2023-12-26 09:21 | Outpatient (CLI) | payer OTHER, SELFPAY ==
[2023-06-04 13:50] VITALS: BMI 34.0
== END ==
LOC: WC 09:21
PROVIDERS: PCP Family Medicine; Referring Provider Family Medicine; Visit Provider Nurse Practitioner Family
DX: E11.621 Type 2 diabetes mellitus with foot ulcer (principal); E11.42 Type 2 diabetes mellitus with diabetic polyneuropathy; L97.522 Non-pressure chronic ulcer of other part of left foot with fat layer exposed; I10 Essential (primary) hypertension
CPT/HCPCS: 11042; 99214

== ENCOUNTER → 2024-01-09 09:33 | Outpatient (CLI) | payer OTHER, SELFPAY ==
[2023-06-04 13:50] VITALS: BMI 34.0
== END ==
LOC: WC 09:34
PROVIDERS: PCP Family Medicine; Referring Provider Family Medicine; Visit Provider Physician Assistant
DX: L97.522 Non-pressure chronic ulcer of other part of left foot with fat layer exposed (principal); E11.621 Type 2 diabetes mellitus with foot ulcer; E11.42 Type 2 diabetes mellitus with diabetic polyneuropathy; I10 Essential (primary) hypertension
CPT/HCPCS: 11042; 87070; 87075; 87147; 87205; 99212; 99213

== ENCOUNTER → 2024-01-26 10:37 | Outpatient (CLI) | payer OTHER, SELFPAY ==
[2023-06-04 13:50] VITALS: BMI 34.0
== END ==
PROVIDERS: PCP Family Medicine; Visit Provider Registered Nurse
DX: R39.9 Unspecified symptoms and signs involving the genitourinary system (principal)
CPT/HCPCS: 87077; 87086; 87186

== ENCOUNTER → 2024-02-05 10:05 | Outpatient (CLI) | payer OTHER, SELFPAY ==
[2023-06-04 13:50] VITALS: BMI 34.0
--- NOTE | 2024-02-05 11:40 | DIAB.MNT ---
Initial Diabetes Medical Nutrition Therapy Assessment Name: Stephanie Castro Date: 02/05/24 Time: [id number] Dx: Type II Diabetes Stephanie presents for initial Dm visit. Reports PMH of Dm x 4 years, no previous DM education. Reports often forgets or skips meal time insulin. Difficulty with finger sticks due to neuropathy in hands. Interested in CGM. D/c ozempic after this week due to SE of stomach pains, dizziness, and reflux last week. After reading about GLP1RA, decided she does not want to take this medication. H/o inability to tolerate Metformin SE. Plans to titrate up Glargine after seeing PCP today, up to 25u tonight. Food surgeries in the last 5 years due to bone spur and scar tissues. Feels Dm is overwhelming due to the meds and diet changes. No previous education on lows. Never experienced lows. Diet recall: 430a: low sugar oatmeal x 2 1p: crackers 1oz and 1can chickpeas with ham and dressing 630-7p: 2c potatoes or rice with protein +/- veggies 7-8p:nothing or 2 cookies or cupcake 0oz water, diet soda 4-6x 12oz, occasional diet beverages Reports was drinking water only last summer, but now back to diet beverages only. Only eats 1x per day on weekends. States she saw PCP this morning with new hgA1c of 8% Anthropometrics: Ht: 68 Wt: 242# 01/2024 Physical Activity: Walks with ADLs, shopping, the zoo. Gardening. Self-Monitoring Blood Glucose: Limited checks due to neuropathy per report. Diabetes Medications: Semaglutide d/c 10mg Jardiance 20u Glargine 0u Novolog Pertinent Labs: HgA1c: 9.5% 06/2021 13.8% 10/2022 13.9% 11/2023 8.1% 01/2024 Past Medical History: (Last Reviewed 01/26/24 @ 10:56 by GUSTAVO Kendrick) Anxiety Bilateral hip pain COVID-19 virus infection (11/01/20) Diabetic ulcer of toe Dysmenorrhea Eczema Fatigue Gastroenteritis GERD (gastroesophageal reflux disease) Greater trochanteric bursitis of left hip HTN (hypertension) Hyperlipidemia Hyperlipidemia Insomnia Left hip pain Migraines Neuropathy OCD (obsessive compulsive disorder) Onychomycosis SHIVANI on CPAP Osteopenia Peripheral neuropathy Pneumonia (~10/2018) Recurrent sinusitis Recurrent UTI Type 2 diabetes mellitus Type 2 diabetes mellitus Unilateral congenital absence of kidney Left Nutrition Rx: Carbohydrates: Meal: 30-45g Snack:15-30g Nutrition Diagnosis: - Excessive CHO intake r/t nutrition knowledge deficit aeb diet recall and pt report - Undesirable food choices r/t all fluids from diet beverages aeb diet recall Intervention: This participant was very receptive. Provided appropriate educational handouts. Discussed the following topics: Completed intake assessment. Discussed barriers to care. CGM review, action, accuracy, when to use meter, guidance for self placement Rule of 15 for lows Plate Method, impact of macronutrients on blood sugar, meal timing, carbohydrate counting, pairing macronutrients and spreading out carbohydrates for better blood glucose management Recommended servings for carbohydrates at meals and snacks Heart health nutrition BG goals and titration of insulin Encouraged novolog ac if postprandial numbers are elevated Created SMART goals for patient self-care and success. Goals: Add protein powder to oats Keep carbs to 1-1.5c at dinner Add veggies to dinner Try to increase water Follow-up: [facility] [place] follow-up in February for classes and 1:1 follow-up there after. Mckenzie Bingham RDN, NAN Certified Diabetes Care and Farm Crops Teacher P: [phone] Thank you for this referral
== END ==
PROVIDERS: PCP Family Medicine; Referring Provider Family Medicine
DX: E11.40 Type 2 diabetes mellitus with diabetic neuropathy, unspecified (principal); Z79.4 Long term (current) use of insulin; Z79.84 Long term (current) use of oral hypoglycemic drugs; Z79.85 Long-term (current) use of injectable non-insulin antidiabetic drugs; Z71.3 Dietary counseling and surveillance
CPT/HCPCS: 97802

== ENCOUNTER → 2024-02-05 12:04 | Outpatient (CLI) | payer OTHER, SELFPAY ==
[2023-06-04 13:50] VITALS: BMI 34.0
[2024-02-05 12:56] LABS: Appearance Urine UA CLEAR; Bilirubin Urine UA 1+ (NEGATIVE); Color Urine UA YELLOW; Glucose Urine UA 3+ g/dL (Negative); Ketones Urine UA TRACE (NEGATIVE); Leukocyte Esterase Urine UA NEGATIVE (NEGATIVE); Nitrite Urine UA NEGATIVE (Negative); Occult Blood Urine UA NEGATIVE (Negative); Protein Urine UA 1+ (Negative); Specific Gravity Urine UA >=1.030 (1.000-1.035)
[2024-02-05 13:10] LABS: Creatinine Urine Random 303.3 mg/dL
[2024-02-05 13:15] LABS: Microalbumi Creatinin Ratio Ur 38.5 ug/mg CR (<30); Microalbumin Urine Random 11.7 mg/dL (0-1.6)
[2024-02-05 13:17] LABS: pH Urine UA 5.5 (4.5-8.0)
[2024-02-05 13:36] LABS: Bacteria Urine Few (2-10); Culture Indicated Urine Cult Not Indicated; RBC Urine 0-1/HPF (0-5/HPF); Squamous Epithelial Cell Urine 1-5 /HPF (0-5/HPF); Urine Volume 10mL (spun); WBC Urine 1-5/HPF (0-5/HPF)
[2024-02-05 13:38] LABS: Ictotest Urine Negative (Negative)
== END ==
PROVIDERS: PCP Family Medicine; Referring Provider Physician Assistant; Visit Provider Physician Assistant
DX: E11.9 Type 2 diabetes mellitus without complications (principal); R30.0 Dysuria
CPT/HCPCS: 81001; 82043; 82570; 97802

== ENCOUNTER → 2024-02-06 08:34 | Outpatient (CLI) | payer OTHER, SELFPAY ==
[2023-06-04 13:50] VITALS: BMI 34.0
[2024-02-06 09:34] LABS: Alanine Aminotransferase 16 IU/L (<35); Albumin 3.9 g/dL (3.5-5.0); Albumin Globulin Ratio 1.6 (1.0-2.8); Alkaline Phosphatase 113 U/L (38-126); Aspartate Aminotransferase 19 IU/L (14-36); BUN Creatinine Ratio 23.5 (6-22); Bilirubin Total 0.8 mg/dL (0.2-1.3); Blood Urea Nitrogen 12 mg/dL (7-17); Calcium 9.3 mg/dL (8.4-10.2); Carbon Dioxide 25 mmol/L (22-32); Chloride 105 mmol/L (98-107); Cholesterol 128 mg/dL (140-199); Estimated Glomerular Filt Rate > 60 mL/min (>60); Globulin 2.4 g/dL (1.7-4.1); Glucose 199 mg/dL (70-100); HDL Cholesterol 40 mg/dL (40-60); HEMOLYSIS < 15 (0-50); LDL Cholesterol Calculated 30 mg/dL (<100); Potassium 4.2 mmol/L (3.4-5.1); Sodium 136 mmol/L (137-145); Total Protein 6.3 g/dL (6.3-8.2); Triglycerides 289 mg/dL (35-150)
== END ==
PROVIDERS: PCP Family Medicine; Referring Provider Physician Assistant; Visit Provider Physician Assistant
DX: E11.9 Type 2 diabetes mellitus without complications (principal); E78.5 Hyperlipidemia, unspecified
CPT/HCPCS: 36415; 80053; 80061

== ENCOUNTER → 2024-02-17 09:37 | Outpatient (CLI) | payer OTHER, SELFPAY ==
[2023-06-04 13:50] VITALS: BMI 34.0
--- NOTE | 2024-02-29 17:53 | DIAB.FU ---
Diabetes Education Class Series: Diabetes and Nutrition Name: Stephanie Castro Date: 02/17/24 Time: [id number] Dx: Type II Diabetes Stephanie presents for class 1 of 3. Reports working on nutrition changes and physical activity. Also, states she would like to move forward with CGM ordering. Class topics covered: ? Debunk nutrition myths and discuss how to sustain healthy eating long-term through moderation and variety ? Define macronutrients and determine their impact on blood sugars ? Discuss macronutrient pairing, Plate Method, and carb counting ? Review general recommendations for carbohydrates ? Practice label reading ? Discuss the role of fiber in diabetes and provide examples of sources ? Review heart health nutrition: fats, fiber, and sodium ? Determine recommendations for grocery shopping and eating out ? Discuss alcohol recommendations ? Review the role of substitute sugars in diabetes management ? Set SMART goals Goal Set: Walk 30 min 3-4x per week Follow-up: Diabetes Physiology and Medication Class in two weeks Mckenzie Bingham RDN, NAN Registered Dietitian, Certified Diabetes Care and Servicer Travel Trailers [phone] [email or web address] Follow-up: [facility] [place] follow-up in 2-3 weeks Mckenzie Bingham RDN, CDCES Certified Diabetes Care and Servicer Travel Trailers P: [phone] Thank you for this referral
== END ==
PROVIDERS: PCP Family Medicine; Referring Provider Family Medicine
DX: E11.9 Type 2 diabetes mellitus without complications (principal); Z71.3 Dietary counseling and surveillance; Z79.4 Long term (current) use of insulin

== ENCOUNTER → 2024-02-17 12:30 | Outpatient (CLI) | payer OTHER, SELFPAY ==
[2023-06-04 13:50] VITALS: BMI 34.0
--- NOTE | 2024-02-17 12:31 | DI.RAD.S_ITS ---
PROCEDURE: XR DEXA AXIAL SKELETON INDICATIONS: Screening due to pt FHx mom/grandmother COMPARISON: None. FINDINGS: Lumbar Spine: Bone mineral density 1.1 g/cm2, T score 0.5, normal. Left Hip: Bone mineral density 1.039 g/cm2, T score 0.8, normal. Left Femoral Neck: Bone mineral density 0.710 g/cm2, T score -1.3, osteopenia. Right Hip: Bone mineral density 0.989 g/cm2, T score 0.4, normal. Right Femoral Neck: Bone mineral density 0.740 g/cm2, T score -1, normal. Fracture Risk Calculation (when applicable): 10-year fracture risk of a major osteoporotic fracture 4 % and of a hip fracture 0.2 %. (T score greater or equal to -1.0 to: NORMAL) (T score from -1.1 to -2.4: OSTEOPENIA) (T score less than or equal to -2.5: OSTEOPOROSIS) IMPRESSION: Osteopenia. Follow-up guidelines as follows: Osteoporosis: Consider a repeat DEXA and Vertebral Fracture Assessment (VFA) exam in 2 years or sooner if medically necessary, to reassess this patient's status. Osteopenia: Consider a repeat DEXA in 2-3 years to reassess this patient's status, or if there is a new clinical indication. Normal: Consider a repeat DEXA in 5 years or sooner, or if there is a new clinical indication. Dictated by: Mal Cooper M.D. on 02/17/2024 at 14:03 Approved by: Mal Cooper M.D. on 02/17/2024 at 14:04
== END ==
PROVIDERS: PCP Family Medicine; Referring Provider Student in an Organized Health Care Education/Training Program; Visit Provider Student in an Organized Health Care Education/Training Program
DX: Z13.820 Encounter for screening for osteoporosis (principal); M85.80 Other specified disorders of bone density and structure, unspecified site; Z82.62 Family history of osteoporosis
CPT/HCPCS: 77080

== ENCOUNTER → 2024-03-02 09:12 | Outpatient (CLI) | payer OTHER, SELFPAY ==
[2023-06-04 13:50] VITALS: BMI 34.0
--- NOTE | 2024-03-02 11:47 | DIAB.FU ---
Diabetes Education Class Series: Diabetes Physiology and Medications Name: Stephanie Castro Date: 03/02/24 Time: [id number] Presents to class 2 of 3. Reports working on movement. Also states she has had difficulty with dm medications, outside of insulin. SE with Metformin, recurrent UTi with Jardiance, GI upset with Ozempic. Started CGM rx process. Class topics covered: ? Diabetes pathophysiology ? Discuss different types of diabetes ? Review criteria for diagnosing diabetes ? Review HgA1c measurement and associated blood sugars ? Review blood sugar monitoring safety, technique, and goals ? Discuss ways to reduce complications associated with diabetes, includes microvascular and macrovascular complications ? Review diabetes medications types, action, and side effects ? Health care visits recommended for people with T2DM ? Immunization recommended for people with T2DM ? SMART goals review Goal Set: Continues working on walking Follow-up: Diabetes Lifestyle and Ongoing Support Class next week Mckenzie Bingham RDN, [facility] Registered Dietitian, Certified Diabetes Care and Supercharger Mechanic [phone] [email or web address]
== END ==
PROVIDERS: PCP Family Medicine; Referring Provider Family Medicine
DX: E11.9 Type 2 diabetes mellitus without complications (principal); Z79.4 Long term (current) use of insulin; Z71.3 Dietary counseling and surveillance
CPT/HCPCS: G0109

== ENCOUNTER → 2024-03-09 09:20 | Outpatient (CLI) | payer OTHER, SELFPAY ==
[2023-06-04 13:50] VITALS: BMI 34.0
--- NOTE | 2024-03-24 13:34 | DIAB.FU ---
Diabetes Education Class Series: Diabetes Lifestyle Change and Ongoing Support Name: Stephanie Castro Date: 03/09/24 Time: [id number] Stephanie reports taking meds without issue. States she has cut out fast food. Wanting to work more on finding a medication to reduce insulin burden. Class topics covered: ? Discuss the difference between physical activity and exercise ? Determine physical activity benefits and impact on diabetes ? Review physical activity recommendations and safety ? Discuss emergency preparedness ? Discuss diabetes and emotions (diabetes burnout/distress) ? Review and practice stress management techniques ? Review support groups and community resources ? Discuss the role of family support in diabetes care ? What is going well? Challenges of diabetes? ? Set SMART goals Follow-up: 1:1 visit follow-up Mckenzie Bingham RDN, [facility] Registered Dietitian, Certified Diabetes Care and Cementer Machine Joiner [phone] [email or web address]
== END ==
LOC: DIET 09:21
PROVIDERS: PCP Family Medicine; Referring Provider Family Medicine
DX: E11.9 Type 2 diabetes mellitus without complications (principal); Z71.3 Dietary counseling and surveillance; Z68.34 Body mass index [BMI] 34.0-34.9, adult
CPT/HCPCS: G0109

== ENCOUNTER → 2024-03-26 08:51 | Outpatient (CLI) | payer OTHER, SELFPAY ==
[2023-06-04 13:50] VITALS: BMI 34.0
--- NOTE | 2024-03-26 10:48 | DIAB.MNTFU ---
Follow-up Diabetes Medical Nutrition Therapy Assessment Name: Stephanie Castro Date: 03/26/24 Time: Dx: Type II Diabetes Stephanie presents for Dm follow-up after completing classes. Reports she now has a personal FSL CGM. States it is sometimes stressful seeing elevated BG all the time. CGM reports indicate chronic hyperglycemia. Has increased glargine. Forgets mealtime insulin, so essentially never takes it. Restarted Jardiance, which has previously given her a UTI. Now taking prophylactics by wiping area with wet toilet paper to remove excess sugar. Also open to trying a different GLP1, since ozempic was not tolerable for her with dizziness and GI symptoms. Interested in potential pump. Provided her [employer] contact info. Has made diet changes. Incorporating more veggies and protein. Some dinner portions still large, likely r/t long period of fasting between lunch and dinner Diet recall: 430a: nothing or low sugar oats x 2 +/- protein powder 1030-11a: high fiber crackers and cheese or Chickpeas OR cheetos 6-7p: pasta x2 c with meat sauce OR potatoes with gravy and added chx OR mac n cheese with greenbeans diet soda 4-6 cans, 12oz milk, no water unless eating out Made the switch from soda to diet soda. Drinks more water during hotter months. Otherwise difficulty getting water in. Feels she has gained wt since increasing insulin. Has one kidney. Reports BP generally in range at home. Anthropometrics: Ht: 68 Wt: 242# 01/2024 Physical Activity: Walking more consistently 4 days per week x 2 mi and 3 days per week 3 mi. Self-Monitoring Blood Glucose: Using personal FSL CGM. Persistent elevated BG likely r/t needing more DM med coverage. May benefit from adding a different GLP1. At this time will increase glargine to help with FBG. Encouraged mealtime insulin at dinner min to cover largest meal. Based on wt, glargine needs may be 55u. Currently at 40u. Today TIR: 77% very high 22% high 1% in range 0% low av mg/dl variability 20.8% Diabetes Medications: Semaglutide d/c 25mg Jardiance 40u Glargine 0u Novolog Pertinent Labs: HgA1c: 9.5% 06/2021 13.8% 10/2022 13.9% 11/2023 8.1% 01/2024 Past Medical History: (Last Reviewed 01/26/24 @ 10:56 by GUSTAVO Kendrick) Anxiety Bilateral hip pain COVID-19 virus infection (11/01/20) Diabetic ulcer of toe Dysmenorrhea Eczema Fatigue Gastroenteritis GERD (gastroesophageal reflux disease) Greater trochanteric bursitis of left hip HTN (hypertension) Hyperlipidemia Hyperlipidemia Insomnia Left hip pain Migraines Neuropathy OCD (obsessive compulsive disorder) Onychomycosis SHIVANI on CPAP Osteopenia Peripheral neuropathy Pneumonia (~10/2018) Recurrent sinusitis Recurrent UTI Type 2 diabetes mellitus Type 2 diabetes mellitus Unilateral congenital absence of kidney Left Nutrition Rx: Carbohydrates: Meal: 30-45g Snack:15-30g Nutrition Diagnosis: - Excessive CHO intake r/t nutrition knowledge deficit aeb diet recall and pt report- in progress - Undesirable food choices r/t all fluids from diet beverages aeb diet recall - in progress Intervention: This participant was very receptive. Provided appropriate educational handouts. Discussed the following topics: Blood sugar review and trends. Impact of food intake and medications on results. meal timing for improved dinner portions CHO recs for portions MEdication management: insulin titration, potential for GLP1, precautions with Jardiance and UTI, wt gain and insulin titration Physical activity plan and progress Created SMART goals for patient self-care and success. Goals: Add protein powder to oats- improved Keep carbs to 1-1.5c at dinner- in progress Add veggies to dinner- improved Try to increase water - not met Increase glargine by 5u tonight and then 2-3u q 2-3 days until FBG in range- new Try 3-4 p snack- new Try mealtime insulin at dinner- new Follow-up: [facility] [place] follow-up in 2-3 weeks Mckenzie Bingham RDN, NAN Certified Diabetes Care and Self Sealing Fuel Tank Repairer P: [phone] Thank you for this referral
== END ==
LOC: DIET 08:52
PROVIDERS: PCP Family Medicine; Referring Provider Family Medicine
DX: E11.9 Type 2 diabetes mellitus without complications (principal); Z71.3 Dietary counseling and surveillance; Z79.84 Long term (current) use of oral hypoglycemic drugs; Z79.4 Long term (current) use of insulin
CPT/HCPCS: 97803

== ENCOUNTER → 2024-05-27 15:31 | Outpatient (CLI) | payer OTHER, SELFPAY ==
[2023-06-04 13:50] VITALS: BMI 34.0
[2024-05-27 20:38] LABS: Microalbumin Urine Random 2.2 mg/dL (0-1.6)
== END ==
PROVIDERS: PCP Family Medicine; Visit Provider Physician Assistant
DX: E11.9 Type 2 diabetes mellitus without complications (principal); R30.0 Dysuria
CPT/HCPCS: 82043; 82570; 87086

== ENCOUNTER → 2024-08-09 13:32 | Outpatient (CLI) | payer OTHER, SELFPAY ==
[2023-06-04 13:50] VITALS: BMI 34.0
[2024-08-09 15:23] LABS: Add Manual Diff / Slide Review NO; Basophils Absolute Auto 100 /uL (0-100); Basophils Percent Auto 0.4 % (0-2); Eosinophils Absolute Auto 400 /uL (0-450); Eosinophils Percent Auto 2.8 % (2-4); Hematocrit 42.4 % (36-46); Hemoglobin 13.8 g/dL (12.0-16.0); Lymphocytes Absolute Auto 3500 /uL (1100-4500); Lymphocytes Percent Auto 25.3 % (25-40); Mean Corpuscular HGB Conc 32.6 % (30-36); Mean Corpuscular Volume 82.9 fL (80-100); Monocytes Absolute Auto 600 /uL (0-900); Monocytes Percent Auto 4.4 % (3-14); Neutrophils Absolute Auto 9100 /uL (1500-7000); Neutrophils Percent Auto 67.1 % (50-75); Platelet Count 275 X10^3/uL (150-400); Red Blood Cell Count 5.12 X10^6/uL (4.0-5.2); Red Cell Distribution Width 13.3 % (11.6-14.8); White Blood Cell Count 13.6 X10^3/uL (4.5-11.0)
[2024-08-09 15:48] LABS: Alanine Aminotransferase 16 IU/L (<35); Albumin 3.9 g/dL (3.5-5.0); Albumin Globulin Ratio 1.3 (1.0-2.8); Alkaline Phosphatase 121 U/L (38-126); Aspartate Aminotransferase 23 IU/L (14-36); BUN Creatinine Ratio 22.1 (6-22); Bilirubin Total 0.6 mg/dL (0.2-1.3); Blood Urea Nitrogen 15 mg/dL (7-17); Calcium 9.6 mg/dL (8.4-10.2); Carbon Dioxide 21 mmol/L (22-32); Chloride 105 mmol/L (98-107); Cholesterol 141 mg/dL (140-199); Estimated Glomerular Filt Rate > 60 mL/min (>60); Globulin 2.9 g/dL (1.7-4.1); Glucose 128 mg/dL (70-100); HDL Cholesterol 45 mg/dL (40-60); HEMOLYSIS 21 (0-50); LDL Cholesterol Calculated 50 mg/dL (<100); Potassium 4.9 mmol/L (3.4-5.1); Sodium 135 mmol/L (137-145); Total Protein 6.8 g/dL (6.3-8.2); Triglycerides 231 mg/dL (35-150)
[2024-08-09 15:52] LABS: Hemoglobin A1C% w Est Avg Glu 11.1 % (4.0-6.0)
== END ==
LOC: LAB 13:33
PROVIDERS: PCP Family Medicine; Referring Provider Family Medicine; Visit Provider Family Medicine
DX: E11.9 Type 2 diabetes mellitus without complications (principal); E78.5 Hyperlipidemia, unspecified; I10 Essential (primary) hypertension; Z79.4 Long term (current) use of insulin; K21.9 Gastro-esophageal reflux disease without esophagitis; L24.9 Irritant contact dermatitis, unspecified cause
CPT/HCPCS: 36415; 80053; 80061; 83036; 85025

== ENCOUNTER → 2024-09-13 13:36 | Outpatient (CLI) | payer OTHER, SELFPAY ==
[2023-06-04 13:50] VITALS: BMI 34.0
== END ==
PROVIDERS: PCP Family Medicine; Visit Provider Family Medicine
DX: N39.0 Urinary tract infection, site not specified (principal)
CPT/HCPCS: 87086

== ENCOUNTER → 2024-09-21 15:32 | Outpatient (CLI) | payer OTHER, SELFPAY ==
[2023-06-04 13:50] VITALS: BMI 34.0
[2024-09-21 17:43] LABS: Appearance Urine UA CLEAR; Bilirubin Urine UA NEGATIVE (NEGATIVE); Color Urine UA ORANGE; Glucose Urine UA 3+ g/dL (Negative); Ketones Urine UA NEGATIVE (NEGATIVE); Leukocyte Esterase Urine UA TRACE (NEGATIVE); Nitrite Urine UA POSITIVE (Negative); Occult Blood Urine UA NEGATIVE (Negative); Protein Urine UA 1+ (Negative); Specific Gravity Urine UA 1.015 (1.000-1.035)
[2024-09-21 17:56] LABS: Bacteria Urine Moderate (10-30); RBC Urine None Seen (0-5/HPF); Urine Volume 10mL (spun); WBC Urine 5-10/HPF (0-5/HPF)
[2024-09-21 17:57] LABS: Culture Indicated Urine Specimen Cultured; Squamous Epithelial Cell Urine 5-10 /HPF (0-5/HPF)
[2024-09-21 18:52] LABS: Microalbumin Urine Random 2.1 mg/dL (0-1.6)
[2024-09-21 18:57] LABS: Creatinine Urine Random 65.07 mg/dL
== END ==
PROVIDERS: PCP Family Medicine; Referring Provider Family Medicine; Visit Provider Family Medicine
DX: R30.0 Dysuria (principal); E11.9 Type 2 diabetes mellitus without complications; E78.5 Hyperlipidemia, unspecified; I10 Essential (primary) hypertension
CPT/HCPCS: 81001; 82043; 82570; 87086

== ENCOUNTER → 2024-10-22 14:24 | Outpatient (CLI) | payer OTHER, SELFPAY ==
[2023-06-04 13:50] VITALS: BMI 34.0
== END ==
PROVIDERS: PCP Family Medicine; Visit Provider Physician Assistant
DX: R30.0 Dysuria (principal)
CPT/HCPCS: 87077; 87086; 87186

== ENCOUNTER → 2025-07-19 09:14 | Outpatient (CLI) | payer OTHER, SELFPAY ==
[2023-06-04 13:50] VITALS: BMI 34.0
== END ==
PROVIDERS: PCP Family Medicine; Visit Provider Chiropractor
DX: R30.0 Dysuria (principal)
CPT/HCPCS: 87077; 87086; 87186

== ENCOUNTER → 2025-09-22 12:43 | Outpatient (CLI) | payer OTHER, SELFPAY ==
[2023-06-04 13:50] VITALS: BMI 34.0
[2025-09-22 13:10] LABS: Add Manual Diff / Slide Review NO; Hematocrit 45.8 % (36-46); Hemoglobin 15.4 g/dL (12.0-16.0); Lymphocytes Absolute Auto 2300 /uL (1100-4500); Mean Corpuscular HGB Conc 33.6 % (30-36); Mean Corpuscular Hemoglobin 26.8 PG (26-34); Mean Corpuscular Volume 79.9 fL (80-100); Platelet Count 242 X10^3/uL (150-400)
[2025-09-22 13:24] LABS: Hemoglobin A1C% w Est Avg Glu 12.8 % (4.0-6.0)
[2025-09-22 13:28] LABS: Alanine Aminotransferase 20 IU/L (<35); Albumin 4.5 g/dL (3.5-5.0); Albumin Globulin Ratio 1.4 (1.0-2.8); Alkaline Phosphatase 135 U/L (38-126); Blood Urea Nitrogen 15 mg/dL (7-17); Calcium 9.4 mg/dL (8.4-10.2); Carbon Dioxide 22 mmol/L (22-32); Chloride 103 mmol/L (98-107); Estimated Glomerular Filt Rate > 60 mL/min (>60); Globulin 3.2 g/dL (1.7-4.1); Glucose 338 mg/dL (70-99); HEMOLYSIS < 15 (0-50); Potassium 4.3 mmol/L (3.4-5.1); Sodium 138 mmol/L (137-145); Total Protein 7.7 g/dL (6.3-8.2)
[2025-09-22 13:57] LABS: TSH w/ Reflex to FT4 2.27 uIU/mL (0.47-4.68)
== END ==
PROVIDERS: PCP Family Medicine; Referring Provider Family Medicine; Visit Provider Family Medicine
DX: Z13.29 Encounter for screening for other suspected endocrine disorder (principal); E11.9 Type 2 diabetes mellitus without complications; D64.9 Anemia, unspecified; E78.2 Mixed hyperlipidemia; Z79.4 Long term (current) use of insulin
CPT/HCPCS: 36415; 80053; 83036; 84443; 85025